=== PATIENT | female | born 1945 | race Caucasian/White ===

== ENCOUNTER 2016-09-29 12:10 | Observation (INO) | payer MEDICARE ==
[2016-09-29] MEDS ORDERED: BABY ASPIRIN 81 MG CHEW PO ONE (12:29)
[2016-09-29] MEDS ORDERED: Nitrostat 0.4 MG (ED) SL ONE ×2 (12:34→12:35)
[2016-09-29] MEDS ORDERED: Sodium Chloride 0.9% 1000 ML 1,000 ML ONE (12:35)
[2016-09-29] MEDS ORDERED: BABY ASPIRIN 81 MG CHEW ONE (12:35)
[2016-09-29] MEDS: Nitrostat 0.4 MG (ED) SL ONE ×2 (12:38→12:54)
[2016-09-29] MEDS: Sodium Chloride 0.9% 1000 ML 1,000 ML IV SCH ×2 (12:39→19:55)
--- NOTE | 2016-09-29 12:41 | ERPHSYRPT ---
- History of Present Illness Time Seen by Provider: 09/29/16 12:15 Historian: patient Exam Limitations: clinical condition Patient Subjective Stated Complaint: states started with CP at 0700 this AM midechest rasiating into back. slight sob and nausea. pain increases with breathing. Triage Nursing Assessment: noted slight sob and anxious. lungs clear bilateral. Physician History: PATIENT WITH A HISTORY OF HYPERTENSION AND CORONARY ARTERY DISEASE COMPLAINS OF SUBSTERNAL CHEST PAINS ONSET 7AM, CHEST TIGHTNESS, PRESSURE, PAIN SCALE 5/10 WITH OCCASIONAL RADIATION TO HER BACK. ADMITS TO NOT TAKING HER HEART OR BLOOD PRESSURE MEDIATIONS TODAY. DENIES DIAPHORESIS OR PALPITATIONS. Timing/Duration: today Activities at Onset: none Quality: pressure, tightness Location: substernal Chest Pain Radiation: back Severity of Pain-Max: moderate Severity of Pain-Current: moderate Modifying Factors: Improves With: nothing Associated Symptoms: shortness of breath Prior Chest Pain/Cardiac Workup: cardiac cath Nitro Today/Relief: 0.4 mg x 3, provided by ED Aspirin Treatment Today: 81 mg x 4, provided by ED Allergies/Adverse Reactions: Penicillins Allergy (Intermediate, Verified 09/29/16 14:23) Rash levofloxacin [From Levaquin] Allergy (Verified 09/29/16 14:23) Home Medications: Metoprolol Succinate 50 mg PO BID 11/19/11 [History] Lorazepam 2 mg PO HS 05/15/12 [History] Lansoprazole 30 mg PO DAILY 06/20/13 [History] Buspirone HCl 5 mg [Buspar 5 mg] 5 mg PO TID 09/29/16 [History] Isosorbide Mononitrate [Isosorbide Mononitrate ER] 30 mg PO DAILY 09/29/16 [ History] Lisinopril 10 mg [Zestril 10 MG] 10 mg PO DAILY 09/29/16 [History] Hx Tetanus, Diphtheria Vaccination/Date Given: No Hx Influenza Vaccination/Date Given: No Hx Pneumococcal Vaccination/Date Given: No - Review of Systems Constitutional: No Fever, No Chills Eyes: No Symptoms Ears, Nose, & Throat: No Symptoms Respiratory: No Symptoms, No Cough, No Dyspnea Cardiac: No Chest Pain, No Edema, No Syncope Abdominal/Gastrointestinal: No Symptoms, No Abdominal Pain, No Nausea, No Vomiting, No Diarrhea Genitourinary Symptoms: No Symptoms, No Dysuria Musculoskeletal: No Symptoms, No Back Pain, No Neck Pain Skin: No Symptoms, No Rash Neurological: No Dizziness, No Focal Weakness, No Sensory Changes Psychological: No Symptoms Endocrine: No Symptoms All Other Systems: Reviewed and Negative - Past Medical History Pertinent Past Medical History: Yes Neurological History: No Pertinent History ENT History: No Pertinent History Cardiac History: High Cholesterol, Hypertension Respiratory History: No Pertinent History Endocrine Medical History: No Pertinent History Musculoskeletal History: No Pertinent History GI Medical History: GERD, Hemorrhoids History: No Pertinent History Psycho-Social History: Anxiety, Panic Disorder Female Reproductive Disorders: No Pertinent History - Past Surgical History Past Surgical History: Yes Neuro Surgical History: No Pertinent History Cardiac: No Pertinent History Respiratory: No Pertinent History Gastrointestinal: No Pertinent History Genitourinary: No Pertinent History Female Surgical History: No Pertinent History Other Surgical History: cyst removed on neck - Social History Smoking Status: Never smoker Exposure to second hand smoke: No Drug Use: none Patient Lives Alone: Yes - Female History Hx Now: No - Nursing Vital Signs Nursing Vital Signs: Initial Vital Signs Temperature 98.6 F 09/29/16 12:12 Pulse Rate 77 09/29/16 12:12 Respiratory Rate 22 09/29/16 12:12 Blood Pressure 198/106 09/29/16 12:12 O2 Sat by Pulse Oximetry 97 09/29/16 12:12 Pain Scale Pain Intensity 0 - Physical Exam General Appearance: no apparent distress, alert Eye Exam: PERRL/EOMI, eyes nml inspection Ears, Nose, Throat Exam: normal ENT inspection, moist mucous membranes Neck Exam: normal inspection, non-tender, supple, full range of motion Respiratory Exam: normal breath sounds, lungs clear, No respiratory distress Cardiovascular Exam: regular rate/rhythm, normal heart sounds, murmur (SYSTOLIC EJECTION MURMUR 4/6) Gastrointestinal/Abdomen Exam: soft, normal bowel sounds (NONTENDER), No tenderness, No mass Back Exam: normal inspection, No CVA tenderness, No vertebral tenderness Extremity Exam: normal inspection, normal range of motion Neurologic Exam: alert, oriented x 3, cooperative, normal mood/affect, sensation nml, No motor deficits Skin Exam: normal color, warm, dry SpO2 Interpretation: normal SpO2: 97 Oxygen Delivery: Room Air - Course EKG Interpreted by Me: RATE, Sinus Rhythm, NORMAL AXIS, Other (THERE IS INFERIO- SEPTA-LATERAL ST SEGMENT DEPRESSION) - Radiology Exams Chest X-ray Interpretation: Interpreted by me, Negative Ordered Tests: Active Orders 24 hr Category Date Time Status Bedrest with BRP/BSC ROUTINE Activity 09/29/16 15:01 Ordered Admission/Status Order ROUTINE Care 09/29/16 15:01 Ordered Call Admit Doctor for Orders ROUTINE Care 09/29/16 15:01 Ordered Career Development Engineer STAT Care 09/29/16 12:30 Active Code Status Order ROUTINE Care 09/29/16 15:01 Ordered EKG-ER Only STAT Care 09/29/16 12:29 Active IV Care Q6H Care 09/29/16 15:01 Ordered IV Insertion STAT Care 09/29/16 12:29 Active Implement Chest Pain Pathway ROUTINE Care 09/29/16 15:01 Ordered Oxygen-ED Only NASAL CANNULA 2 lpm Care 09/29/16 12:29 Active Chang Fuentes, Apply ROUTINE Care 09/29/16 15:01 Ordered Telemetry ROUTINE Care 09/29/16 15:01 Ordered Vital Signs Q4H Care 09/29/16 15:01 Ordered Weight,Daily 0600 Care 09/29/16 15:01 Ordered Cardiac Diet Diet 09/29/16 Dinner Ordered Low Sodium Diet 09/29/16 Dinner Ordered CHEST 1 VIEW (PORTABLE) Stat Exams 09/29/16 12:30 Taken CBC W DIFF Stat Lab 09/29/16 12:20 Completed CMP Stat Lab 09/29/16 12:20 Completed LIPID PROFILE AM.LAB Lab 09/30/16 04:00 Ordered PROTIME WITH INR Stat Lab 09/29/16 12:20 Completed TROPONIN Q3H Lab 09/29/16 13:00 Completed TROPONIN Q3H Lab 09/29/16 15:30 Ordered TROPONIN Q3H Lab 09/29/16 18:30 Ordered TROPONIN Q3H Lab 09/29/16 21:30 Ordered TROPONIN Q3H Lab 09/30/16 00:30 Ordered EKG Q8HX2,QAMX3,PRN RT 09/29/16 15:01 Ordered Pulse Oximetry .continuos RT 09/29/16 15:01 Ordered Transfer Order Routine Transfer 09/29/16 Ordered Medication Summary Generic Name Dose Route Start Last Admin Trade Name Freq PRN Reason Stop Dose Admin Sodium Chloride 1,000 mls @ 100 mls/hr 09/29/16 12:30 09/29/16 12:39 Sodium Chloride 0.9% 1000 Ml IV 10/29/16 12:29 100 mls/hr .Q10H MARY BETH Administration Discontinued Medications Generic Name Dose Route Start Last Admin Trade Name Loyda PRN Reason Stop Dose Admin Aspirin 324 mg 09/29/16 12:29 09/29/16 12:38 Baby Aspirin 81 Mg Chew PO 09/29/16 12:30 324 mg STAT ONE Administration Aspirin Confirm 09/29/16 12:35 Baby Aspirin 81 Mg Chew Administered 09/29/16 12:36 Dose 324 mg .ROUTE .STK-MED ONE Clonidine 0.1 mg 09/29/16 13:53 09/29/16 14:08 Catapres 0.1 Mg PO 09/29/16 13:54 0.1 mg STAT ONE Administration Clonidine Confirm 09/29/16 14:04 Catapres 0.1 Mg Administered 09/29/16 14:05 Dose 0.1 mg .ROUTE .STK-MED ONE Hydralazine HCl 10 mg 09/29/16 13:54 09/29/16 14:07 Apresoline 20 Mg/Ml Inj IV 09/29/16 13:55 10 mg STAT ONE Administration Hydralazine HCl Confirm 09/29/16 14:05 Apresoline 20 Mg/Ml Inj Administered 09/29/16 14:06 Dose 20 mg .ROUTE .STK-MED ONE Lorazepam 1 mg 09/29/16 13:53 09/29/16 14:07 Ativan 2 Mg/1 Ml Vial IV 09/29/16 13:54 1 mg STAT ONE Administration Lorazepam Confirm 09/29/16 14:05 Ativan 2 Mg/1 Ml Vial Administered 09/29/16 14:06 Dose 2 mg .ROUTE .STK-MED ONE Nitroglycerin 0.4 mg 09/29/16 12:29 09/29/16 12:54 Nitrostat 0.4 Mg (Ed) SL 09/29/16 12:30 Not Given STAT ONE Nitroglycerin 0.4 mg 09/29/16 12:34 09/29/16 12:41 Nitrostat 0.4 Mg (Ed) SL 09/29/16 12:35 0.4 mg STAT ONE Administration Nitroglycerin Confirm 09/29/16 12:35 Nitrostat 0.4 Mg (Ed) Administered 09/29/16 12:36 Dose 0.4 mg SL .STK-MED ONE Nitroglycerin 1 gm 09/29/16 12:55 09/29/16 13:08 Nitro-Bid 2% Ud Packets TOP 09/29/16 12:56 1 gm STAT ONE Administration Nitroglycerin Confirm 09/29/16 12:58 Nitro-Bid 2% Ud Packets Administered 09/29/16 12:59 Dose 1 gm .ROUTE .STK-MED ONE Lab/Rad Data: Laboratory Result Diagrams 09/29/16 12:20 09/29/16 12:20 Laboratory Results 09/29/16 09/29/16 09/29/16 Range/Units 13:00 12:20 12:20 WBC (4.0-10.5) K/mm3 RBC (4.1-5.4) M/mm3 Hgb (12.0-16.0) gm/dl Hct (35-47) % MCV (78-100) fl MCH (26-32) pg MCHC (32-36) g/dl RDW (11.5-14.0) % Plt Count (150-450) K/mm3 MPV (6-9.5) fl Gran % (36.0-66.0) % Lymphocytes % (24.0-44.0) % Monocytes % (0.0-12.0) % Eosinophils % (0.00-5.0) % Basophils % (0.0-0.4) % Basophils # (0-0.4) INR 1.04 (0.8-3.0) Sodium 140 (136-145) mEq/L Potassium 3.8 (3.5-5.1) mEq/L Chloride 104 (98-107) mEq/L Carbon Dioxide 23.3 (21-32) mEq/L Anion Gap 16.5 H (5-15) MEQ/L BUN 16 (9-20) mg/dL Creatinine 1.28 (0.55-1.30) mg/dl Estimated GFR 44 ML/MIN Glucose 131 H (70-110) MG/DL Calcium 8.9 (8.5-10.1) mg/dL Total Bilirubin 0.50 (0.2-1.0) mg/dL AST 25 (15-37) U/L ALT 20 (12-78) U/L Alkaline Phosphatase 80 (46-116) U/L Troponin I < 0.017 (0.000-0.056) ng/ml Serum Total Protein 7.8 (6.4-8.2) gm/dL Albumin 3.9 (3.4-5.0) g/dL 09/29/16 Range/Units 12:20 WBC 5.5 (4.0-10.5) K/mm3 RBC 4.17 (4.1-5.4) M/mm3 Hgb 13.1 (12.0-16.0) gm/dl Hct 39.6 (35-47) % MCV 95.0 (78-100) fl MCH 31.4 (26-32) pg MCHC 33.1 (32-36) g/dl RDW 13.2 (11.5-14.0) % Plt Count 232 (150-450) K/mm3 MPV 10.3 H (6-9.5) fl Gran % 35.3 L (36.0-66.0) % Lymphocytes % 50.4 H (24.0-44.0) % Monocytes % 10.8 (0.0-12.0) % Eosinophils % 3.1 (0.00-5.0) % Basophils % 0.4 (0.0-0.4) % Basophils # 0.02 (0-0.4) INR (0.8-3.0) Sodium (136-145) mEq/L Potassium (3.5-5.1) mEq/L Chloride (98-107) mEq/L Carbon Dioxide (21-32) mEq/L Anion Gap (5-15) MEQ/L BUN (9-20) mg/dL Creatinine (0.55-1.30) mg/dl Estimated GFR ML/MIN Glucose (70-110) MG/DL Calcium (8.5-10.1) mg/dL Total Bilirubin (0.2-1.0) mg/dL AST (15-37) U/L ALT (12-78) U/L Alkaline Phosphatase (46-116) U/L Troponin I (0.000-0.056) ng/ml Serum Total Protein (6.4-8.2) gm/dL Albumin (3.4-5.0) g/dL - Progress Progress Note: 09/29/16 12:42 PATIENT GIVEN 4 BABY ASPIRIN, NITRO 0.4MG SL X 1 WITH COMPLETE RELIEF, CATAPRES 0.1MG, HYDRALAZINE 10MG IV FOR HYPERTENSION AND ATIVAN 1 MG FOR ANXIETY 09/29/16 13:[address].: Other (DISCUSSED WITH DR Maria PAINTER AT 1450 FOR ADMISSION) - Departure Time of Disposition: 15:10 Departure Disposition: Observation Clinical Impression: ACUTE CHEST PAIN, HYPERTENSION Condition: Stable Critical Care Time: No Referrals: RIMMA CHA MD [Primary Care Provider] -
[2016-09-29 12:49] LABS: BASOPHIL % 0.4 % (0.0-0.4); Eosinophil % 3.1 % (0.00-5.0); Granulocytes % 35.3 % (36.0-66.0); Lymphocytes % 50.4 % (24.0-44.0); Mean Corpuscular Hemoglobin 31.4 pg (26-32); Mean Platelet Volume 10.3 fl (6-9.5); Monocytes % 10.8 % (0.0-12.0); Platelet Count 232 K/mm3 (150-450); Red Blood Count 4.17 M/mm3 (4.1-5.4); Red Cell Distribution Width 13.2 % (11.5-14.0); White Blood Count 5.5 K/mm3 (4.0-10.5)
[2016-09-29] MEDS ORDERED: NITRO-BID 2% UD PACKETS TOP ONE (12:55)
[2016-09-29] MEDS ORDERED: NITRO-BID 2% UD PACKETS ONE (12:58)
[2016-09-29 13:01] LABS: ALBUMIN 3.9 g/dL (3.4-5.0); ANION GAP 16.5 MEQ/L (5-15); BILIRUBIN,TOTAL 0.5 mg/dL (0.2-1.0); Carbon Dioxide 23.3 mEq/L (21-32); Potassium 3.8 mEq/L (3.5-5.1); Total Protein 7.8 gm/dL (6.4-8.2)
[2016-09-29 13:20] LABS: INR 1.04 (0.8-3.0); PROTIME 11.8 SECONDS (9.95-12.35)
[2016-09-29] MEDS ORDERED: Catapres 0.1 MG PO ONE (13:53)
[2016-09-29] MEDS ORDERED: Ativan 2 MG/1 ML VIAL IV ONE (13:53)
[2016-09-29] MEDS ORDERED: APRESOLINE 20 MG/ML INJ IV ONE (13:54)
[2016-09-29] MEDS ORDERED: Catapres 0.1 MG ONE (14:04)
[2016-09-29] MEDS ORDERED: Ativan 2 MG/1 ML VIAL ONE (14:05)
[2016-09-29] MEDS ORDERED: APRESOLINE 20 MG/ML INJ ONE (14:05)
[2016-09-29] MEDS ORDERED: MILK OF MAGNESIA 30 ML PO PRN (15:01)
[2016-09-29] MEDS ORDERED: Senokot-S Tablet PO PRN (15:01)
[2016-09-29] MEDS ORDERED: Nitrostat 0.4 MG Tablet SL PRN (15:01)
[2016-09-29] MEDS ORDERED: MORPHINE SULFATE 2 MG INJ IV PRN (15:01)
[2016-09-29] MEDS ORDERED: TYLENOL 325 MG PO PRN (15:01)
[2016-09-29] MEDS ORDERED: Zofran 4 MG/2 ML VIAL IV PRN (15:01)
[2016-09-29] MEDS ORDERED: MAALOX ES 30 ML UNIT DOSE PO PRN (15:01)
[2016-09-29] MEDS ORDERED: Zestril 10 MG PO STA (15:07)
[2016-09-29] MEDS ORDERED: Sodium Chloride 0.9% 500 ML 500 ML IV SCH (15:15)
[2016-09-29] MEDS: Imdur 30 MG PO SCH (16:57)
--- NOTE | 2016-09-29 18:51 | XRAY ---
Indication: Chest pain. Comparison: October 20, 2015. Portable chest today demonstrates normal heart and lungs with stable hiatal hernia. Bony thorax intact. No new/acute findings.
[2016-09-29] MEDS: NITRO-BID 2% UD PACKETS TOP SCH (22:03)
[2016-09-29] MEDS: Ativan 1 MG PO PRN (23:19)
[2016-09-30] MEDS: Sodium Chloride 0.9% 1000 ML 1,000 ML IV SCH (05:39)
[2016-09-30] MEDS: NITRO-BID 2% UD PACKETS TOP SCH ×2 (05:39→13:49)
[2016-09-30 07:58] VITALS: O2SAT 92
[2016-09-30] MEDS: Ativan 1 MG PO PRN (08:23)
[2016-09-30] MEDS ORDERED: Toprol Xl 50 MG PO SCH (10:00)
[2016-09-30] MEDS ORDERED: Ecotrin 325 MG PO SCH (10:00)
[2016-09-30] MEDS: Imdur 30 MG PO SCH (10:38)
--- NOTE | 2016-09-30 12:52 | PCM.SSS ---
History of Present Illness - Chief Complaint Chief Complaint: chest pain for 1 day History of Present Illness: is a 71 year old female.states started with CP at 0700 this AM midechest rasiating into back. slight sob and nausea. pain increases with breathing - Review of Systems Constitutional: No Fever, No Chills Eyes: No Symptoms Ears, Nose, & Throat: No Symptoms Respiratory: No Cough, No Short Of Breath Cardiac: No Chest Pain, No Edema, No Syncope Abdominal/Gastrointestinal: No Abdominal Pain, No Nausea, No Vomiting, No Diarrhea Genitourinary Symptoms: No Dysuria Musculoskeletal: No Back Pain, No Neck Pain Skin: No Rash Neurological: No Dizziness, No Focal Weakness, No Sensory Changes Psychological: No Symptoms Endocrine: No Symptoms Hematologic/Lymphatic: No Symptoms Immunological/Allergic: No Symptoms Medications & Allergies Home Medications: Home Medication List Acetaminophen 325 mg [Tylenol 325 mg] 650 mg PO Q4H PRN PRN tablet [Rx] Aspirin EC 325 mg [Ecotrin 325 MG] 325 mg PO DAILY tablet.ec 09/30/16 [Rx ] Isosorbide Mononitrate 30 mg [Imdur 30 MG] 30 mg PO DAILY #30 tab 09/30/16 [Rx] Isosorbide Mononitrate [Isosorbide Mononitrate ER] 30 mg PO HS #30 tab.er.24h [Rx] Lansoprazole 30 mg PO DAILY #30 capsule.dr 09/30/16 [Rx] Lisinopril 10 mg [Zestril 10 MG] 10 mg PO DAILY #30 tablet 09/30/16 [Rx] Lorazepam 2 mg PO BID #60 tablet 09/30/16 [Rx] Metoprolol Succinate 50 mg PO DAILY #30 tab.er.24h 09/30/16 [Rx] Metoprolol Succinate 50 mg [Toprol Xl 50 MG] 50 mg PO DAILY #30 tablet.sa 09/30/16 [Rx] Nitroglycerin 0.4 mg Tablet [Nitrostat 0.4 MG Tablet] 0.4 mg SL .Q5MIN PRN #30 bottle 09/30/16 [Rx] Paroxetine HCl ER 12.5 mg [Paxil 12.5MG CR] 12.5 mg PO QHS #30 tab [Rx] Allergies/Adverse Reactions: Allergies Allergy/AdvReac Type Severity Reaction Status Date / Time Penicillins Allergy Intermediate Rash Verified 09/29/16 14:23 levofloxacin [From Levaquin] Allergy Verified 09/29/16 14:23 - Past Medical History Past Medical History: Yes Neurological History: No Pertinent History ENT History: No Pertinent History Cardiac History: High Cholesterol, Hypertension Respiratory History: No Pertinent History Endocrine Medical History: No Pertinent History Musculoskelatal History: No Pertinent History GI Medical History: GERD, Hemorrhoids History: No Pertinent History Pyscho-Social History: Anxiety, Panic Disorder Reproductive Disorders: No Pertinent History - Female History Are you now?: No - Past Surgical History Past Surgical History: Yes Neuro Surgical History: No Pertinent History Cardiac History: No Pertinent History Respiratory Surgery: No Pertinent History GI Surgical History: No Pertinent History Genitourinary Surgical Hx: No Pertinent History Musculskeletal Surgical Hx: No Pertinent History Female Surgical History: No Pertinent History Other Surgical History: cyst removed on neck - Social History Smoking Status: Never smoker Exposure to second hand smoke: No Alcohol: None Drug Use: none - Physical Exam Vital Signs: Vital Signs - 24 hr Temp Pulse Resp BP Pulse Ox 09/30/16 07:57 98.2 F 72 18 134/66 92 L 09/30/16 07:26 94 L 09/30/16 04:15 97.8 F 67 20 130/66 97 09/29/16 23:43 97.7 F 80 18 127/68 99 09/29/16 21:27 70 20 99 09/29/16 15:55 98 F 71 20 173/80 99 09/29/16 15:08 97 09/29/16 15:01 98 F 71 20 173/80 99 09/29/16 14:50 94 H 22 184/94 09/29/16 14:15 75 16 172/98 98 09/29/16 13:10 73 20 167/88 09/29/16 13:09 68 18 167/88 97 09/29/16 12:50 88 22 174/84 99 09/29/16 12:45 20 207/89 98 Oxygen-Last 24 hours O2 Percentage 2 Liters = 28% O2 Percentage 2 Liters = 28% O2 Percentage 2 Liters = 28% O2 Percentage 2 Liters = 28% O2 Percentage 2 Liters = 28% O2 Percentage 2 Liters = 28% O2 Percentage 2 Liters = 28% General Appearance: no apparent distress, alert Neurologic Exam: alert, oriented x 3, cooperative, normal mood/affect, nml cerebellar function, nml station & gait, sensation nml, No motor deficits Eye Exam: PERRL/EOMI, eyes nml inspection Ears, Nose, Throat Exam: normal ENT inspection, TMs normal, pharynx normal, moist mucous membranes Neck Exam: normal inspection, non-tender, supple, full range of motion Respiratory Exam: normal breath sounds, lungs clear, No respiratory distress Cardiovascular Exam: regular rate/rhythm, normal heart sounds, normal peripheral pulses Gastrointestinal/Abdomen Exam: soft, normal bowel sounds, No tenderness, No mass Back Exam: normal inspection, normal range of motion, No CVA tenderness, No vertebral tenderness Extremity Exam: normal inspection, normal range of motion, pelvis stable Skin Exam: normal color, warm, dry, No rash Lymphatic Exam: No adenopathy Results - Labs Lab/Micro Results: Lab Results-Last 24 Hours 09/29/16 09/29/16 09/29/16 Range/Units 15:50 18:32 21:30 Troponin I < 0.017 < 0.017 < 0.017 (0.000-0.056) ng/ml Triglycerides (30-200) mg/dL Cholesterol (100-200) mg/dL LDL Cholesterol (5-99) mg/dL HDL Cholesterol (35-60) mg/dL Heart Disease Risk Ratio 09/30/16 09/30/16 Range/Units 00:47 04:56 Troponin I < 0.017 (0.000-0.056) ng/ml Triglycerides 189 (30-200) mg/dL Cholesterol 218 H (100-200) mg/dL LDL Cholesterol 141 H (5-99) mg/dL HDL Cholesterol 32 L (35-60) mg/dL Heart Disease Risk Ratio 6.8 - Other Procedures and Tests Respiratory Therapy 09/29/16 21:27 Oxygen NASAL CANNULA 2 lpm 10/01/16 05:00 EKG ONCE 10/02/16 05:00 EKG ONCE Assessment/Plan (1) Chest discomfort Current Visit: Yes Status: Resolved Assessment & Plan: Patient has been ruled out for CT, no chest pain Chief Complaint Diagnosis chest pain Allergies Allergy/AdvReac Type Severity Reaction Status Date / Time Penicillins Allergy Intermediate Rash Verified 09/29/16 14:23 levofloxacin [From Levaquin] Allergy Verified 09/29/16 14:23 Vital Signs (Last 24 hours) Temp Pulse Resp BP Pulse Ox 09/30/16 07:57 98.2 F 72 18 134/66 92 L 09/30/16 07:26 94 L 09/30/16 04:15 97.8 F 67 20 130/66 97 09/29/16 23:43 97.7 F 80 18 127/68 99 09/29/16 21:27 70 20 99 09/29/16 15:55 98 F 71 20 173/80 99 09/29/16 15:08 97 09/29/16 15:01 98 F 71 20 173/80 99 09/29/16 14:50 94 H 22 184/94 09/29/16 14:15 75 16 172/98 98 09/29/16 13:10 73 20 167/88 09/29/16 13:09 68 18 167/88 97 09/29/16 12:50 88 22 174/84 99 09/29/16 12:45 20 207/89 98 Home Medications Medication Instructions Recorded Confirmed Last Taken Type Buspirone HCl 5 mg [Buspar 5 5 mg PO TID 09/29/16 09/29/16 09/29/16 History mg] Isosorbide Mononitrate [Isosorbide 30 mg PO HS 09/29/16 09/29/16 09/28/16 21:00 History Mononitrate ER] Lisinopril 10 mg [Zestril 10 10 mg PO DAILY 09/29/16 09/29/16 09/28/16 08:00 History MG] Current Medications Generic Name Dose Route Start Last Admin Trade Name Freq PRN Reason Stop Dose Admin Acetaminophen 650 mg 09/29/16 15:01 09/30/16 05:38 Tylenol 325 Mg PO 10/29/16 15:00 650 mg Q4H PRN PRN Administration PAIN AND/OR FEVER Al Hydrox/Mg Hydrox/Simethicone 30 ml 09/29/16 15:01 Maalox Es 30 Ml Unit Dose PO 10/29/16 15:00 Q4H PRN PRN INDIGESTION Aspirin 325 mg 09/30/16 10:00 09/30/16 10:39 Ecotrin 325 Mg PO 10/30/16 09:59 325 mg DAILY MARY BETH Administration Sodium Chloride 1,000 mls @ 100 mls/hr 09/29/16 12:30 09/30/16 05:39 Sodium Chloride 0.9% 1000 Ml IV 10/29/16 12:29 100 mls/hr .Q10H MARY BETH Administration Isosorbide Mononitrate 30 mg 09/29/16 15:15 09/30/16 10:38 Imdur 30 Mg PO 10/29/16 15:14 30 mg DAILY MARY BETH Administration Lorazepam 1 mg 09/29/16 15:05 09/30/16 08:23 Ativan 1 Mg PO 10/29/16 15:04 1 mg TID PRN PRN Administration ANXIETY Magnesium Hydroxide 30 - 60 ml 09/29/16 15:01 Milk Of Magnesia 30 Ml PO 10/29/16 15:00 QDP PRN CONSTIPATION Metoprolol Succinate 50 mg 09/30/16 10:00 09/30/16 10:38 Toprol Xl 50 Mg PO 10/30/16 09:59 50 mg DAILY MARY BETH Administration Morphine Sulfate 2 mg 09/29/16 15:01 Morphine Sulfate 2 Mg Inj IV 10/04/16 15:00 .Q15MIN PRN PRN CHEST PAIN Nitroglycerin 0.4 mg 09/29/16 15:01 Nitrostat 0.4 Mg Tablet SL 10/29/16 15:00 .Q5MIN PRN CHEST PAIN Nitroglycerin 1 gm 09/29/16 22:00 09/30/16 05:39 Nitro-Bid 2% Ud Packets TOP 10/29/16 21:59 1 gm Q8HT MARY BETH Administration Ondansetron HCl 4 mg 09/29/16 15:01 Zofran 4 Mg/2 Ml Vial IV 10/29/16 15:00 Q4H PRN PRN NAUSEA/VOMITING Senna/Docusate Sodium 2 udtab 09/29/16 15:01 Senokot-S Tablet PO 10/29/16 15:00 BID PRN PRN CONSTIPATION Discontinued Medications Generic Name Dose Route Start Last Admin Trade Name Loyda PRN Reason Stop Dose Admin Aspirin 324 mg 09/29/16 12:29 09/29/16 12:38 Baby Aspirin 81 Mg Chew PO 09/29/16 12:30 324 mg STAT ONE Administration Aspirin Confirm 09/29/16 12:35 Baby Aspirin 81 Mg Chew Administered 09/29/16 12:36 Dose 324 mg .ROUTE .STK-MED ONE Clonidine 0.1 mg 09/29/16 13:53 09/29/16 14:08 Catapres 0.1 Mg PO 09/29/16 13:54 0.1 mg STAT ONE Administration Clonidine Confirm 09/29/16 14:04 Catapres 0.1 Mg Administered 09/29/16 14:05 Dose 0.1 mg .ROUTE .STK-MED ONE Hydralazine HCl 10 mg 09/29/16 13:54 09/29/16 14:07 Apresoline 20 Mg/Ml Inj IV 09/29/16 13:55 10 mg STAT ONE Administration Hydralazine HCl Confirm 09/29/16 14:05 Apresoline 20 Mg/Ml Inj Administered 09/29/16 14:06 Dose 20 mg .ROUTE .STK-MED ONE Sodium Chloride Confirm 09/29/16 12:35 Sodium Chloride 0.9% 1000 Ml Administered 09/29/16 12:36 Dose 1,000 mls @ ud .ROUTE .STK-MED ONE Lisinopril 10 mg 09/29/16 15:07 09/29/16 15:53 Zestril 10 Mg PO 09/29/16 15:08 10 mg STAT STA Administration Lorazepam 1 mg 09/29/16 13:53 09/29/16 14:07 Ativan 2 Mg/1 Ml Vial IV 09/29/16 13:54 1 mg STAT ONE Administration Lorazepam Confirm 09/29/16 14:05 Ativan 2 Mg/1 Ml Vial Administered 09/29/16 14:06 Dose 2 mg .ROUTE .STK-MED ONE Nitroglycerin 0.4 mg 09/29/16 12:29 09/29/16 12:54 Nitrostat 0.4 Mg (Ed) SL 09/29/16 12:30 Not Given STAT ONE Nitroglycerin 0.4 mg 09/29/16 12:34 09/29/16 12:41 Nitrostat 0.4 Mg (Ed) SL 09/29/16 12:35 0.4 mg STAT ONE Administration Nitroglycerin Confirm 09/29/16 12:35 Nitrostat 0.4 Mg (Ed) Administered 09/29/16 12:36 Dose 0.4 mg SL .STK-MED ONE Nitroglycerin 1 gm 09/29/16 12:55 09/29/16 13:08 Nitro-Bid 2% Ud Packets TOP 09/29/16 12:56 1 gm STAT ONE Administration Nitroglycerin Confirm 09/29/16 12:58 Nitro-Bid 2% Ud Packets Administered 09/29/16 12:59 Dose 1 gm .ROUTE .STK-MED ONE Intake & Output (Last 24 hours) 09/28/16 09/29/16 09/30/16 10/01/16 11:59 11:59 11:59 11:59 Intake Total 1998 Output Total 200 Balance 1798 Weight 76.204 kg Laboratory Results (Last 24 hours) 09/30/16 09/30/16 09/29/16 04:56 00:47 21:30 WBC RBC Hgb Hct MCV MCH MCHC RDW Plt Count MPV Gran % Lymphocytes % Monocytes % Eosinophils % Basophils % Basophils # INR Sodium Potassium Chloride Carbon Dioxide Anion Gap BUN Creatinine Estimated GFR Glucose Calcium Total Bilirubin AST ALT Alkaline Phosphatase Troponin I < 0.017 < 0.017 Serum Total Protein Albumin Triglycerides 189 Cholesterol 218 H LDL Cholesterol 141 H HDL Cholesterol 32 L Heart Disease Risk Ratio 6.8 09/29/16 09/29/16 09/29/16 18:32 15:50 13:00 WBC RBC Hgb Hct MCV MCH MCHC RDW Plt Count MPV Gran % Lymphocytes % Monocytes % Eosinophils % Basophils % Basophils # INR Sodium Potassium Chloride Carbon Dioxide Anion Gap BUN Creatinine Estimated GFR Glucose Calcium Total Bilirubin AST ALT Alkaline Phosphatase Troponin I < 0.017 < 0.017 < 0.017 Serum Total Protein Albumin Triglycerides Cholesterol LDL Cholesterol HDL Cholesterol Heart Disease Risk Ratio 09/29/16 09/29/16 09/29/16 12:20 12:20 12:20 WBC 5.5 RBC 4.17 Hgb 13.1 Hct 39.6 MCV 95.0 MCH 31.4 MCHC 33.1 RDW 13.2 Plt Count 232 MPV 10.3 H Gran % 35.3 L Lymphocytes % 50.4 H Monocytes % 10.8 Eosinophils % 3.1 Basophils % 0.4 Basophils # 0.02 INR 1.04 Sodium 140 Potassium 3.8 Chloride 104 Carbon Dioxide 23.3 Anion Gap 16.5 H BUN 16 Creatinine 1.28 Estimated GFR 44 Glucose 131 H Calcium 8.9 Total Bilirubin 0.50 AST 25 ALT 20 Alkaline Phosphatase 80 Troponin I Serum Total Protein 7.8 Albumin 3.9 Triglycerides Cholesterol LDL Cholesterol HDL Cholesterol Heart Disease Risk Ratio Orders (Last 24 hours) Category Date Time Status Bedrest with BRP/BSC ROUTINE Activity 09/29/16 15:01 Active Admission/Status Order ROUTINE Care 09/29/16 15:01 Active Call Admit Doctor for Orders ROUTINE Care 09/29/16 15:01 Active Furniture Fabricator STAT Care 09/29/16 12:30 Completed Code Status Order ROUTINE Care 09/29/16 15:01 Active EKG-ER Only STAT Care 09/29/16 12:29 Completed IV Care Q6H Care 09/29/16 15:01 Active IV Insertion STAT Care 09/29/16 12:29 Completed Implement Chest Pain Pathway ROUTINE Care 09/29/16 15:01 Active Oxygen-ED Only NASAL CANNULA 2 lpm Care 09/29/16 12:29 Active Chang Fuentes, Apply ROUTINE Care 09/29/16 15:01 Active Telemetry ROUTINE Care 09/29/16 15:01 Active Vital Signs Q4H Care 09/29/16 15:01 Completed Weight,Daily 0600 Care 09/29/16 15:01 Active Publication Designer/Discharge Plan Cons 09/29/16 16:28 Active Cardiac Diet Diet 09/29/16 Dinner Active Low Sodium Diet 09/29/16 Dinner Active CHEST 1 VIEW (PORTABLE) Stat Exams 09/29/16 12:30 Completed CBC W DIFF Stat Lab 09/29/16 12:20 Completed CMP Stat Lab 09/29/16 12:20 Completed LIPID PROFILE AM.LAB Lab 09/30/16 04:56 Completed PROTIME WITH INR Stat Lab 09/29/16 12:20 Completed TROPONIN Q3H Lab 09/29/16 13:00 Completed TROPONIN Q3H Lab 09/29/16 15:50 Completed TROPONIN Q3H Lab 09/29/16 18:32 Completed TROPONIN Q3H Lab 09/29/16 21:30 Completed TROPONIN Q3H Lab 09/30/16 00:47 Completed Acetaminophen 325 mg [Tylenol 325 mg] Med 09/29/16 15:01 Active 650 mg PO Q4H PRN PRN Aspirin 81 gm Chew [Baby Aspirin 81 mg Chew] Med 09/29/16 12:35 Discontinued 324 mg .ROUTE .STK-MED ONE Aspirin 81 gm Chew [Baby Aspirin 81 mg Chew] Med 09/29/16 12:29 Discontinued 324 mg PO STAT ONE Aspirin EC 325 mg [Ecotrin 325 MG] Med 09/30/16 10:00 Active 325 mg PO DAILY Clonidine HCl 0.1 mg [Catapres 0.1 MG] Med 09/29/16 14:04 Discontinued 0.1 mg .ROUTE .STK-MED ONE Clonidine HCl 0.1 mg [Catapres 0.1 MG] Med 09/29/16 13:53 Discontinued 0.1 mg PO STAT ONE HydrALAzine HCL 20 MG INJ [Apresoline 20 mg/ml Inj Med 09/29/16 13:54 Discontinued *] 10 mg IV STAT ONE HydrALAzine HCL 20 MG INJ [Apresoline 20 mg/ml Inj Med 09/29/16 14:05 Discontinued *] 20 mg .ROUTE .STK-MED ONE Isosorbide Mononitrate 30 mg [Imdur 30 MG] Med 09/29/16 15:15 Active 30 mg PO DAILY Lisinopril 10 mg [Zestril 10 MG] Med 09/29/16 15:07 Discontinued 10 mg PO STAT STA Lorazepam 1 mg [Ativan 1 MG] Med 09/29/16 15:05 Active 1 mg PO TID PRN PRN Lorazepam 2 mg/1 ml [Ativan 2 MG/1 ML VIAL] Med 09/29/16 13:53 Discontinued 1 mg IV STAT ONE Lorazepam 2 mg/1 ml [Ativan 2 MG/1 ML VIAL] Med 09/29/16 14:05 Discontinued 2 mg .ROUTE .STK-MED ONE Mag Hydrox/Al Hydrox/Simeth [Maalox Es 30 ml Unit Med 09/29/16 15:01 Active Dose] 30 ml PO Q4H PRN PRN Magnesium Hydroxide 30 ml [Milk of Magnesia 30 ml Med 09/29/16 15:01 Active ] 30 - 60 ml PO QDP PRN Metoprolol Succinate 50 mg [Toprol Xl 50 MG] Med 09/30/16 10:00 Active 50 mg PO DAILY Morphine Sulfate 2 mg Inj Med 09/29/16 15:01 Active 2 mg IV .Q15MIN PRN PRN NaCl 0.9% 1000 ml [Sodium Chloride 0.9% 1000 ML] 1,000 Med 09/29/16 12:35 Discontinued ml .ROUTE UD NaCl 0.9% 1000 ml [Sodium Chloride 0.9% 1000 ML] 1,000 Med 09/29/16 12:30 Active ml IV 100 mls/hr Nitroglycerin 0.4 mg (Ed) [Nitrostat 0.4 MG (ED)] Med 09/29/16 12:35 Discontinued 0.4 mg SL .STK-MED ONE Nitroglycerin 0.4 mg (Ed) [Nitrostat 0.4 MG (ED)] Med 09/29/16 12:29 Discontinued 0.4 mg SL STAT ONE Nitroglycerin 0.4 mg (Ed) [Nitrostat 0.4 MG (ED)] Med 09/29/16 12:34 Discontinued 0.4 mg SL STAT ONE Nitroglycerin 0.4 mg Tablet [Nitrostat 0.4 MG Tablet Med 09/29/16 15:01 Active ] 0.4 mg SL .Q5MIN PRN Nitroglycerin 2 %Ointment [Nitro-Bid 2% Ud Packets Med 09/29/16 12:58 Discontinued *] 1 gm .ROUTE .STK-MED ONE Nitroglycerin 2 %Ointment [Nitro-Bid 2% Ud Packets Med 09/29/16 22:00 Active *] 1 gm TOP Q8HT Nitroglycerin 2 %Ointment [Nitro-Bid 2% Ud Packets Med 09/29/16 12:55 Discontinued *] 1 gm TOP STAT ONE Ondansetron HCl 4 mg/2 ml [Zofran 4 MG/2 ML VIAL] Med 09/29/16 15:01 Active 4 mg IV Q4H PRN PRN Senna/Docusate Sodium Tab [Senokot-S Tablet] Med 09/29/16 15:01 Active 2 udtab PO BID PRN PRN EKG ONCE RT 09/29/16 20:15 Completed EKG ONCE RT 09/30/16 05:00 Completed EKG ONCE RT 10/01/16 05:00 Active EKG ONCE RT 10/02/16 05:00 Active Oxygen NASAL CANNULA 2 lpm RT 09/29/16 21:27 Active Code(s): R07.89 - OTHER CHEST PAIN (2) HTN (hypertension) Current Visit: Yes Status: Acute Qualifiers: Hypertension type: essential hypertension Qualified Code(s): I10 - Essential (primary) hypertension Code(s): I10 - ESSENTIAL (PRIMARY) HYPERTENSION (3) Hyperlipemia, mixed Current Visit: Yes Status: Acute Code(s): E78.2 - MIXED HYPERLIPIDEMIA Hospital Summary - Hospital Course Hospital Course: Last Vital Signs Temp 98.2 F 09/30/16 07:57 Pulse 72 09/30/16 07:57 Resp 18 09/30/16 07:57 BP 134/66 09/30/16 07:57 Pulse Ox 92 L 09/30/16 07:57 Allergies Penicillins Allergy (Intermediate, Verified 09/29/16 14:23) Rash levofloxacin [From Levaquin] Allergy (Verified 09/29/16 14:23) Active Medications Acetaminophen (Tylenol 325 Mg) 650 mg PO Q4H PRN PRN PRN Reason: PAIN AND/OR FEVER Stop: 10/29/16 15:00 Last Admin: 09/30/16 05:38 Dose: 650 mg Al Hydrox/Mg Hydrox/Simethicone (Maalox Es 30 Ml Unit Dose) 30 ml PO Q4H PRN PRN PRN Reason: INDIGESTION Stop: 10/29/16 15:00 Aspirin (Ecotrin 325 Mg) 325 mg PO DAILY [facility] Stop: 10/30/16 09:59 Last Admin: 09/30/16 10:39 Dose: 325 mg Sodium Chloride (Sodium Chloride 0.9% 1000 Ml) 1,000 mls @ 100 mls/hr IV .Q10H [facility] Stop: 10/29/16 12:29 Last Admin: 09/30/16 05:39 Dose: 100 mls/hr Isosorbide Mononitrate (Imdur 30 Mg) 30 mg PO DAILY [facility] Stop: 10/29/16 15:14 Last Admin: 09/30/16 10:38 Dose: 30 mg Lorazepam (Ativan 1 Mg) 1 mg PO TID PRN PRN PRN Reason: ANXIETY Stop: 10/29/16 15:04 Last Admin: 09/30/16 08:23 Dose: 1 mg Magnesium Hydroxide (Milk Of Magnesia 30 Ml) 30 - 60 ml PO QDP PRN PRN Reason: CONSTIPATION Stop: 10/29/16 15:00 Metoprolol Succinate (Toprol Xl 50 Mg) 50 mg PO DAILY [facility] Stop: 10/30/16 09:59 Last Admin: 09/30/16 10:38 Dose: 50 mg Morphine Sulfate (Morphine Sulfate 2 Mg Inj) 2 mg IV .Q15MIN PRN PRN PRN Reason: CHEST PAIN Stop: 10/04/16 15:00 Nitroglycerin (Nitrostat 0.4 Mg Tablet) 0.4 mg SL .Q5MIN PRN PRN Reason: CHEST PAIN Stop: 10/29/16 15:00 Nitroglycerin (Nitro-Bid 2% Ud Packets) 1 gm TOP Q8HT [facility] Stop: 10/29/16 21:59 Last Admin: 09/30/16 05:39 Dose: 1 gm Ondansetron HCl (Zofran 4 Mg/2 Ml Vial) 4 mg IV Q4H PRN PRN PRN Reason: NAUSEA/VOMITING Stop: 10/29/16 15:00 Senna/Docusate Sodium (Senokot-S Tablet) 2 udtab PO BID PRN PRN PRN Reason: CONSTIPATION Stop: 10/29/16 15:00 Intake & Output 09/30/16 10/01/16 11:59 11:59 Intake Total 1998 Output Total 200 Balance 1798 Weight 76.204 kg Orders 09/29/16 16:28 Publication Designer/Discharge Plan 09/29/16 21:27 Oxygen NASAL CANNULA 2 lpm Lab Tests 09/29/16 09/29/16 09/29/16 12:20 12:20 12:20 WBC 5.5 RBC 4.17 Hgb 13.1 Hct 39.6 MCV 95.0 MCH 31.4 MCHC 33.1 RDW 13.2 Plt Count 232 MPV 10.3 H Gran % 35.3 L Lymphocytes % 50.4 H Monocytes % 10.8 Eosinophils % 3.1 Basophils % 0.4 Basophils # 0.02 INR 1.04 Sodium 140 Potassium 3.8 Chloride 104 Carbon Dioxide 23.3 Anion Gap 16.5 H BUN 16 Creatinine 1.28 Estimated GFR 44 Glucose 131 H Calcium 8.9 Total Bilirubin 0.50 AST 25 ALT 20 Alkaline Phosphatase 80 Troponin I Serum Total Protein 7.8 Albumin 3.9 Triglycerides Cholesterol LDL Cholesterol HDL Cholesterol Heart Disease Risk Ratio 09/29/16 09/29/16 09/29/16 13:00 15:50 18:32 WBC RBC Hgb Hct MCV MCH MCHC RDW Plt Count MPV Gran % Lymphocytes % Monocytes % Eosinophils % Basophils % Basophils # INR Sodium Potassium Chloride Carbon Dioxide Anion Gap BUN Creatinine Estimated GFR Glucose Calcium Total Bilirubin AST ALT Alkaline Phosphatase Troponin I < 0.017 < 0.017 < 0.017 Serum Total Protein Albumin Triglycerides Cholesterol LDL Cholesterol HDL Cholesterol Heart Disease Risk Ratio 09/29/16 09/30/16 09/30/16 21:30 00:47 04:56 WBC RBC Hgb Hct MCV MCH MCHC RDW Plt Count MPV Gran % Lymphocytes % Monocytes % Eosinophils % Basophils % Basophils # INR Sodium Potassium Chloride Carbon Dioxide Anion Gap BUN Creatinine Estimated GFR Glucose Calcium Total Bilirubin AST ALT Alkaline Phosphatase Troponin I < 0.017 < 0.017 Serum Total Protein Albumin Triglycerides 189 Cholesterol 218 H LDL Cholesterol 141 H HDL Cholesterol 32 L Heart Disease Risk Ratio 6.8 - Vitals & Intake/Output Vital Signs: Vital Signs Temperature 98.2 F 09/30/16 07:57 Pulse Rate 72 09/30/16 07:57 Respiratory Rate 18 09/30/16 07:57 Blood Pressure 134/66 09/30/16 07:57 O2 Sat by Pulse Oximetry 92 L 09/30/16 07:57 Oxygen-Last Documented O2 Percentage 2 Liters = 28% Intake & Output: Intake & Output 09/28/16 09/29/16 09/30/16 10/01/16 11:59 11:59 11:59 11:59 Intake Total 1997 Output Total 200 Balance 1798 Weight 76.204 kg - Lab Result Diagrams: 09/29/16 12:20 09/29/16 12:20 Lab Results-Last 24 Hrs: Lab Results-Last 24 Hours 09/29/16 09/29/16 09/29/16 Range/Units 15:50 18:32 21:30 Troponin I < 0.017 < 0.017 < 0.017 (0.000-0.056) ng/ml Triglycerides (30-200) mg/dL Cholesterol (100-200) mg/dL LDL Cholesterol (5-99) mg/dL HDL Cholesterol (35-60) mg/dL Heart Disease Risk Ratio 09/30/16 09/30/16 Range/Units 00:47 04:56 Troponin I < 0.017 (0.000-0.056) ng/ml Triglycerides 189 (30-200) mg/dL Cholesterol 218 H (100-200) mg/dL LDL Cholesterol 141 H (5-99) mg/dL HDL Cholesterol 32 L (35-60) mg/dL Heart Disease Risk Ratio 6.8 - Procedures and Test Procedures and Tests throughout Hospitalization: Therapy Orders & Screens 09/29/16 20:15 EKG ONCE Comment: Diagnosis: chest pain 09/29/16 21:27 Oxygen NASAL CANNULA 2 lpm Comment: Diagnosis: chest pain 09/30/16 05:00 EKG ONCE Comment: 10/01/16 05:00 EKG ONCE Comment: 10/02/16 05:00 EKG ONCE Comment: - Discharge Discharge Date: 09/30/16 Disposition: Home, Self-Care Condition: Stable Prescriptions: New Aspirin EC 325 mg [Ecotrin 325 MG] 325 mg PO DAILY tablet.ec Isosorbide Mononitrate 30 mg [Imdur 30 MG] 30 mg PO DAILY #30 tab Nitroglycerin 0.4 mg Tablet [Nitrostat 0.4 MG Tablet] 0.4 mg SL .Q5MIN PRN #30 bottle PRN Reason: Chest Pain Paroxetine HCl ER 12.5 mg [Paxil 12.5MG CR] 12.5 mg PO QHS #30 tab Metoprolol Succinate 50 mg [Toprol Xl 50 MG] 50 mg PO DAILY #30 tablet.sa Acetaminophen 325 mg [Tylenol 325 mg] 650 mg PO Q4H PRN PRN tablet PRN Reason: Pain And/Or Fever Continue Isosorbide Mononitrate [Isosorbide Mononitrate ER] 30 mg PO HS #30 tab.er.24h Lansoprazole 30 mg PO DAILY #30 capsule. Metoprolol Succinate 50 mg PO DAILY #30 tab.er.24h Lisinopril 10 mg [Zestril 10 MG] 10 mg PO DAILY #30 tablet Changed Lorazepam 2 mg PO BID #60 tablet Discontinued Buspirone HCl 5 mg [Buspar 5 mg] 5 mg PO TID Follow up with: RIMMA CHA MD [Primary Care Provider] -
[2016-09-30 13:17] VITALS: BP 179/84; PULSE 73
== END 2016-09-30 15:36 | disposition home or self-care (01) ==
LOC: ED 12:10 → MED SURG 15:19
PROVIDERS: ADMIT Internal Medicine; ATTEND General Practice
DX: R07.89 Other chest pain (principal); I10 Essential (primary) hypertension; E78.2 Mixed hyperlipidemia; Z79.899 Other long term (current) drug therapy; K21.9 Gastro-esophageal reflux disease without esophagitis; F41.9 Anxiety disorder, unspecified
CPT/HCPCS: 36000; 36415; 71010; 80053; 80061; 83721; 84484; 85025; 85610; 93005; 93041; 93268; 94760; 96360; 96361; 96374; 96375; 99285; G0378; J0360; J2060; A9270-GY

== ENCOUNTER 2018-05-30 19:55 | Emergency (ER) | payer MEDICARE ==
[2018-05-30] MEDS ORDERED: Sodium Chloride 0.9% 1000 ML 1,000 ML IV STA (20:14)
[2018-05-30] MEDS ORDERED: Zofran 4 MG/2 ML VIAL IV ONE ×2 (20:14→23:35)
--- NOTE | 2018-05-30 20:14 | ERPHSYRPT ---
- History of Present Illness Time Seen by Provider: 05/30/18 20:13 Historian: patient, family Patient Subjective Stated Complaint: pt is alert and oriented. pt is ambulatory with a steady gait. pt comes in with c/o abd pain, n/v/d, and fever. pt states she's vomited 3x the last 24 hrs and had more than 10 diarrhea stools. pt skin is pale and dry. pt bowel sounds normoactive x4. pt states her abdomenal pain is in the center of her abdomen. pt heart sounds regular. Triage Nursing Assessment: see above Physician History: 73 y/o white female presents with first diarrhea this am at 0300. she then has several bouts of this throughout the day followed by n/v and crampy abd pain. no prior abd surgeries. never had this before. no headache, no sore throat, no earaches. no other individuals in family with similar sx. no travel outside us and no camping. no antibx and no new meds. Timing/Duration: yesterday Abdominal Pain Onset Location: generalized abdomen Severity of Pain-Max: mild Severity of Pain-Current: mild Modifying Factors: Improves With: vomiting Associated Symptoms: diarrhea, fever/chills, loss of appetite, nausea, vomiting Previous symptoms: no prior history Allergies/Adverse Reactions: Penicillins Allergy (Intermediate, Verified 09/29/16 14:23) Rash levofloxacin [From Levaquin] Allergy (Verified 09/29/16 14:23) Hx Tetanus, Diphtheria Vaccination/Date Given: No Hx Influenza Vaccination/Date Given: No Hx Pneumococcal Vaccination/Date Given: No Immunizations Up to Date: Yes - Review of Systems Constitutional: Weakness Eyes: No Symptoms Ears, Nose, & Throat: No Symptoms Respiratory: No Symptoms Cardiac: No Symptoms Abdominal/Gastrointestinal: Abdominal Pain (generalized mild crampin), Nausea, Vomiting, Diarrhea Genitourinary Symptoms: No Symptoms Musculoskeletal: No Symptoms Skin: No Symptoms Neurological: No Symptoms Psychological: No Symptoms Endocrine: No Symptoms Hematologic/Lymphatic: No Symptoms Immunological/Allergic: No Symptoms All Other Systems: Reviewed and Negative - Past Medical History Pertinent Past Medical History: Yes Neurological History: No Pertinent History ENT History: No Pertinent History Cardiac History: High Cholesterol, Hypertension Respiratory History: No Pertinent History Endocrine Medical History: No Pertinent History Musculoskeletal History: No Pertinent History GI Medical History: GERD, Hemorrhoids History: No Pertinent History Psycho-Social History: Anxiety, Panic Disorder Female Reproductive Disorders: No Pertinent History - Past Surgical History Past Surgical History: Yes Neuro Surgical History: No Pertinent History Cardiac: No Pertinent History Respiratory: No Pertinent History Gastrointestinal: No Pertinent History Genitourinary: No Pertinent History Musculoskeletal: No Pertinent History Female Surgical History: No Pertinent History Other Surgical History: cyst removed on neck - Social History Smoking Status: Never smoker Exposure to second hand smoke: No Drug Use: none Patient Lives Alone: Yes - Female History Hx Now: No - Nursing Vital Signs Nursing Vital Signs: Initial Vital Signs Temperature 100.5 F 05/30/18 20:03 Pulse Rate 87 05/30/18 20:03 Respiratory Rate 18 05/30/18 20:03 Blood Pressure 161/78 05/30/18 20:03 O2 Sat by Pulse Oximetry 97 05/30/18 20:03 Pain Scale Pain Intensity 3 - Physical Exam General Appearance: mild distress, alert, anxiety Eye Exam: PERRL/EOMI Ears, Nose, Throat Exam: normal ENT inspection, moist mucous membranes Neck Exam: normal inspection, non-tender, supple, full range of motion Respiratory Exam: normal breath sounds, lungs clear, airway intact, No chest tenderness, No respiratory distress Cardiovascular Exam: regular rate/rhythm, normal heart sounds, normal peripheral pulses Gastrointestinal/Abdomen Exam: soft, normal bowel sounds, No tenderness (midl diffuse), No guarding, No rebound Pelvic Exam: not done Rectal Exam: not done, No decreased tone Back Exam: normal inspection, normal range of motion, No vertebral tenderness Extremity Exam: normal inspection, normal range of motion, pelvis stable Neurologic Exam: alert, oriented x 3, 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, 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 Skin Exam: normal color, warm Lymphatic Exam: No adenopathy SpO2 Interpretation: normal SpO2: 97 O2 Delivery: Room Air - Course Nursing assessment & vital signs reviewed: Yes Ordered Tests: Active Orders 24 hr Category Date Time Status IV Insertion STAT Care 05/30/18 20:14 Active ABDOMEN AND PELVIS W/0 CONTRAS [CT] Stat Exams 05/30/18 20:27 Taken AMYLASE Stat Lab 05/30/18 20:31 Completed BLOOD CULTURE Stat Lab 05/30/18 20:31 Received CBC W DIFF Stat Lab 05/30/18 20:31 Completed CMP Stat Lab 05/30/18 20:31 Completed CULTURE,URINE Stat Lab 05/30/18 20:37 Received LIPASE Stat Lab 05/30/18 20:31 Completed Lactic Acid Stat Lab 05/30/18 20:14 Completed Lactic Acid Stat Lab 05/30/18 22:30 Completed UA W/RFX UR CULTURE Stat Lab 05/30/18 20:37 Completed Medication Summary Generic Name Dose Route Start Last Admin Trade Name Freq PRN Reason Stop Dose Admin Hydrocodone Bitart/Acetaminophen 1 tab 05/30/18 22:50 [place] 5/325 Mg PO 05/30/18 22:51 STAT ONE Metronidazole 500 mg 05/30/18 22:50 Flagyl 500 Mg PO 05/30/18 22:51 STAT ONE Trimethoprim/Sulfamethoxazole 1 tab 05/30/18 22:49 Bactrim Ds Tablet PO 05/30/18 22:50 STAT STA Discontinued Medications Generic Name Dose Route Start Last Admin Trade Name Freq PRN Reason Stop Dose Admin Sodium Chloride 1,000 mls @ 999 mls/hr 05/30/18 20:14 05/30/18 22:10 Sodium Chloride 0.9% 1000 Ml IV 05/30/18 21:14 Infused .Q1H1M STA Infusion Sodium Chloride Confirm 05/30/18 20:17 Sodium Chloride 0.9% 1000 Ml Administered 05/30/18 20:18 Dose 1,000 mls @ ud .ROUTE .STK-MED ONE Sodium Chloride 500 mls @ 500 mls/hr 05/30/18 21:25 05/30/18 22:24 Sodium Chloride 0.9% 500 Ml IV 05/30/18 22:24 500 mls/hr .Q1H ONE Administration Sodium Chloride Confirm 05/30/18 22:24 Sodium Chloride 0.9% 500 Ml Administered 05/30/18 22:25 Dose 500 mls @ ud IV .STK-MED ONE Ondansetron HCl 4 mg 05/30/18 20:14 05/30/18 20:20 Zofran 4 Mg/2 Ml Vial IV 05/30/18 20:15 4 mg STAT ONE Administration Ondansetron HCl Confirm 05/30/18 20:17 Zofran 4 Mg/2 Ml Vial Administered 05/30/18 20:18 Dose 4 mg .ROUTE .STK-MED ONE Lab/Rad Data: Laboratory Result Diagrams 05/30/18 20:31 05/30/18 20:31 Laboratory Results 05/30/18 05/30/18 05/30/18 Range/Units 22:30 20:37 20:31 WBC (4.0-10.5) K/mm3 RBC (4.1-5.4) M/mm3 Hgb (12.0-16.0) gm/dl Hct (35-47) % MCV (78-100) fl MCH (26-32) pg MCHC (32-36) g/dl RDW (11.5-14.0) % Plt Count (150-450) K/mm3 MPV (6-9.5) fl Gran % (36.0-66.0) % Eos # (Auto) (0-0.5) Absolute Lymphs (auto) (1.0-4.6) Absolute Monos (auto) (0.0-1.3) Lymphocytes % (24.0-44.0) % Monocytes % (0.0-12.0) % Eosinophils % (0.00-5.0) % Basophils % (0.0-0.4) % Absolute Granulocytes (1.4-6.9) Basophils # (0-0.4) Sodium (137-145) mmol/L Potassium (3.5-5.1) mmol/L Chloride (98-107) mmol/L Carbon Dioxide (22-30) mmol/L Anion Gap (5-15) MEQ/L BUN (7-17) mg/dL Creatinine (0.52-1.04) mg/dL Estimated GFR ML/MIN Glucose (74-106) mg/dL Lactic Acid 1.3 (0.4-2.0) Calcium (8.4-10.2) mg/dL Total Bilirubin (0.2-1.3) mg/dL AST (14-36) U/L ALT (0-35) U/L Alkaline Phosphatase (38-126) U/L Serum Total Protein (6.3-8.2) g/dL Albumin (3.5-5.0) g/dL Amylase (30-110) U/L Lipase (23-300) U/L Urine Color YELLOW (YELLOW) Urine Appearance SLIGHTLY CLOUDY (CLEAR) Urine pH 5.0 (5-6) Ur Specific [place] 1.028 (1.005-1.025) Urine Protein 30 (Negative) Urine Ketones NEGATIVE (NEGATIVE) Urine Blood NEGATIVE (0-5) Emanuel/ul Urine Nitrite NEGATIVE (NEGATIVE) Urine Bilirubin NEGATIVE (NEGATIVE) Urine Urobilinogen NEGATIVE (0-1) mg/dL Ur Leukocyte Esterase TRACE (NEGATIVE) Urine WBC (Auto) 6-10 (0-5) /HPF Urine RBC (Auto) 0-2 (0-2) /HPF U Epithel Cells (Auto) RARE (FEW) /HPF Urine Bacteria (Auto) RARE (NEGATIVE) /HPF Unidentified Crystals 2-5 (NEGATIVE) /HPF Urine Mucus (Auto) MANY (NEGATIVE) /HPF Urine Culture Reflexed YES (NO) Urine Glucose NEGATIVE (NEGATIVE) mg/dL Influenza Type A Ag NEGATIVE (NEGATIVE) Influenza Type B Ag NEGATIVE (NEGATIVE) RSV (PCR) NEGATIVE (Negative) 05/30/18 05/30/18 05/30/18 Range/Units 20:31 20:31 20:14 WBC 5.4 (4.0-10.5) K/mm3 RBC 4.29 (4.1-5.4) M/mm3 Hgb 14.0 (12.0-16.0) gm/dl Hct 42.8 (35-47) % MCV 99.8 (78-100) fl MCH 32.6 H (26-32) pg MCHC 32.7 (32-36) g/dl RDW 14.0 (11.5-14.0) % Plt Count 231 (150-450) K/mm3 MPV 9.5 (6-9.5) fl Gran % 64.5 (36.0-66.0) % Eos # (Auto) 0.12 (0-0.5) Absolute Lymphs (auto) 1.21 (1.0-4.6) Absolute Monos (auto) 0.56 (0.0-1.3) Lymphocytes % 22.5 L (24.0-44.0) % Monocytes % 10.4 (0.0-12.0) % Eosinophils % 2.2 (0.00-5.0) % Basophils % 0.4 (0.0-0.4) % Absolute Granulocytes 3.47 (1.4-6.9) Basophils # 0.02 (0-0.4) Sodium 138 (137-145) mmol/L Potassium 4.2 (3.5-5.1) mmol/L Chloride 103 (98-107) mmol/L Carbon Dioxide 24 (22-30) mmol/L Anion Gap 15.5 H (5-15) MEQ/L BUN 17 (7-17) mg/dL Creatinine 1.33 H (0.52-1.04) mg/dL Estimated GFR 41.5 ML/MIN Glucose 129 H (74-106) mg/dL Lactic Acid 2.3 H (0.4-2.0) Calcium 9.4 (8.4-10.2) mg/dL Total Bilirubin 0.80 (0.2-1.3) mg/dL AST 30 (14-36) U/L ALT 21 (0-35) U/L Alkaline Phosphatase 68 (38-126) U/L Serum Total Protein 8.1 (6.3-8.2) g/dL Albumin 4.4 (3.5-5.0) g/dL Amylase 57 (30-110) U/L Lipase 87 (23-300) U/L Urine Color (YELLOW) Urine Appearance (CLEAR) Urine pH (5-6) Ur Specific [place] (1.005-1.025) Urine Protein (Negative) Urine Ketones (NEGATIVE) Urine Blood (0-5) Emanuel/ul Urine Nitrite (NEGATIVE) Urine Bilirubin (NEGATIVE) Urine Urobilinogen (0-1) mg/dL Ur Leukocyte Esterase (NEGATIVE) Urine WBC (Auto) (0-5) /HPF Urine RBC (Auto) (0-2) /HPF U Epithel Cells (Auto) (FEW) /HPF Urine Bacteria (Auto) (NEGATIVE) /HPF Unidentified Crystals (NEGATIVE) /HPF Urine Mucus (Auto) (NEGATIVE) /HPF Urine Culture Reflexed (NO) Urine Glucose (NEGATIVE) mg/dL Influenza Type A Ag (NEGATIVE) Influenza Type B Ag (NEGATIVE) RSV (PCR) (Negative) - Progress Progress: improved, re-examined Progress Note: 05/30/18 22:51 ct abd/pelvis-no acute process Counseled pt/family regarding: lab results, diagnosis, need for follow-up, rad results - Departure Departure Disposition: Home Clinical Impression: UTI (urinary tract infection), Colitis Condition: Stable Critical Care Time: No Referrals: TORI WEINBERG [Primary Care Provider] - Additional Instructions: drink plenty of clear liquids. follow up with primary doctor for further management including colonoscopy if indicated. Prescriptions: Ondansetron ODT 4 MG [Zofran Odt 4 mg] 4 mg PO Q6H PRN PRN #10 tab.rapdis PRN Reason: Vomiting Metronidazole 500 mg [Flagyl 500 MG] 500 mg PO TID #21 tablet Smz/Tmp Ds Tablet [Bactrim Ds Tablet] 1 udtab PO BID #14 tablet
[2018-05-30] MEDS ORDERED: Zofran 4 MG/2 ML VIAL ONE ×2 (20:17→23:32)
[2018-05-30] MEDS ORDERED: Sodium Chloride 0.9% 1000 ML 1,000 ML ONE (20:17)
[2018-05-30 20:22] LABS: Lactic Acid 2.3 (0.4-2.0)
[2018-05-30 20:37] LABS: BASOPHIL % 0.4 % (0.0-0.4); Basophil (Absolute #) 0.02 (0-0.4); Eosinophil % 2.2 % (0.00-5.0); Eosinophil (Absolute #) 0.12 (0-0.5); Granulocyte Absolute (ANC) 3.47 (1.4-6.9); Granulocytes % 64.5 % (36.0-66.0); Hematocrit 42.8 % (35-47); Lymphocyte (Absolute #) 1.21 (1.0-4.6); Lymphocytes % 22.5 % (24.0-44.0); Mean Cell Volume 99.8 fl (78-100); Mean Corpuscular Hemoglobin 32.6 pg (26-32); Mean Corpuscular Hgb Concent. 32.7 g/dl (32-36); Mean Platelet Volume 9.5 fl (6-9.5); Monocyte (Absolute #) 0.56 (0.0-1.3); Monocytes % 10.4 % (0.0-12.0); Platelet Count 231 K/mm3 (150-450); Red Blood Count 4.29 M/mm3 (4.1-5.4); White Blood Count 5.4 K/mm3 (4.0-10.5)
[2018-05-30 20:47] LABS: ALBUMIN 4.4 g/dL (3.5-5.0); ANION GAP 15.5 MEQ/L (5-15); BILIRUBIN,TOTAL 0.8 mg/dL (0.2-1.3); Calcium 9.4 mg/dL (8.4-10.2); Creatinine 1 1.33 mg/dL (0.52-1.04); Potassium 4.2 mmol/L (3.5-5.1); Total Protein 8.1 g/dL (6.3-8.2)
[2018-05-30 21:04] LABS: Appearance SLIGHTLY CLOUDY (CLEAR); Bacteria RARE /HPF (NEGATIVE); Bilirubin NEGATIVE (NEGATIVE); Blood NEGATIVE Ery/ul (0-5); Epithelial Cells RARE /HPF (FEW); Glucose NEGATIVE (NEGATIVE); Ketones NEGATIVE (NEGATIVE); Leukocyte Esterase TRACE (NEGATIVE); Mucus MANY /HPF (NEGATIVE); Nitrite NEGATIVE (NEGATIVE); Protein,Urine Dip 30 (Negative); RBC 0-2 /HPF (0-2); Specific Gravity 1.028 (1.005-1.025); Urobilinogen NEGATIVE mg/dL (0-1)
[2018-05-30 21:16] LABS: INFLUENZA A NEGATIVE (NEGATIVE); INFLUENZA B NEGATIVE (NEGATIVE); RESPIRATORY SYNCTIAL VIRUS NEGATIVE (Negative)
[2018-05-30] MEDS ORDERED: Sodium Chloride 0.9% 500 ML 500 ML IV ONE ×2 (21:25→22:24)
[2018-05-30 22:33] VITALS: BP 134/76
[2018-05-30] MEDS ORDERED: BACTRIM DS TABLET PO STA (22:49)
[2018-05-30] MEDS ORDERED: Flagyl 500 MG PO ONE (22:50)
[2018-05-30] MEDS ORDERED: NORCO 5/325 MG PO ONE (22:50)
[2018-05-30 22:56] VITALS: O2SAT 97
[2018-05-30] MEDS ORDERED: BACTRIM DS TABLET PO ONE (23:04)
[2018-05-30] MEDS ORDERED: Flagyl 500 MG ONE (23:05)
[2018-05-30] MEDS ORDERED: NORCO 5/325 MG ONE (23:09)
[2018-05-30] MEDS ORDERED: Ativan 2 MG/1 ML VIAL IV ONE (23:42)
[2018-05-30] MEDS ORDERED: Ativan 2 MG/1 ML VIAL ONE (23:51)
[2018-05-31 00:25] VITALS: PULSE 86
--- NOTE | 2018-05-31 07:57 | XRAY ---
Indication: Lower abdominal pain. Nausea, vomiting, diarrhea, and fever. Multiple contiguous axial images obtained through the abdomen and pelvis without contrast as ordered. Comparison: None Lung bases demonstrates bibasilar fibrosis/scarring and left lower lobe calcified granuloma. No infiltrate or effusion. Heart is not enlarged. Large hiatal hernia with partial intrathoracic stomach. Noncontrasted stomach and bowel loops appear nonobstructed. Normal appendix. No free fluid/air. There are mid abdomen subcentimeter mesenteric nodes with stranding, possible mesenteric adenitis. Mild diffuse fatty liver, 1.5 cm right renal cyst, and calcified splenic granulomas. Remaining liver, gallbladder, pancreas, spleen, adrenal glands, kidneys, ureters, bladder, and uterus appear unremarkable for noncontrast exam. Mild aortoiliac calcifications without AAA. Osseous structures demonstrates osteopenia. No ventral or inguinal hernias. Impression: 1. Tiny mid abdomen mesenteric nodes with stranding, possible mesenteric adenitis. 2. Fatty liver, large hiatal hernia with partial intrathoracic stomach, right renal cyst, and evidence for old granulomatous disease. 3. Remaining CT abdomen/pelvis without contrast exam is negative. Comment: Preliminary interpretation was made by C. No critical discrepancy. CTDI 18.87
== END 2018-05-31 00:30 | disposition home or self-care (01) ==
LOC: ED 19:55
DX: N39.0 Urinary tract infection, site not specified (principal); K52.9 Noninfective gastroenteritis and colitis, unspecified; I10 Essential (primary) hypertension; F41.9 Anxiety disorder, unspecified
CPT/HCPCS: 36000; 36415; 74176; 80053; 81001; 82150; 83605; 83690; 85025; 87040; 87086; 87631; 96360; 96361; 96374; 96375; 96376; 99284; J2060; J2405; A9270-GY

== ENCOUNTER 2018-10-11 16:22 | Emergency (ER) | payer MEDICARE ==
--- NOTE | 2018-10-11 16:28 | ERPHSYRPT ---
- History of Present Illness Time Seen by Provider: 10/11/18 16:28 Historian: patient Exam Limitations: no limitations Physician History: 73 y/o white female present with 2 days of bladder pressure, dysuria, and urinary frequency. pt has had similar sx in past and they have been utis. pt states she can take pyridium and sulfa. pt denies cp, and soa. Timing/Duration: day(s) (2) Quality: burning Abdominal Pain Onset Location: suprapubic (mild pressure) Severity of Pain-Max: mild Severity of Pain-Current: mild Modifying Factors: Improves With: urinating Associated Symptoms: denies symptoms Previous symptoms: same symptoms as today Allergies/Adverse Reactions: Penicillins Allergy (Intermediate, Verified 10/11/18 16:35) Rash levofloxacin [From Levaquin] Allergy (Verified 10/11/18 16:35) Hx Tetanus, Diphtheria Vaccination/Date Given: No Hx Influenza Vaccination/Date Given: No Hx Pneumococcal Vaccination/Date Given: No - Review of Systems Constitutional: No Symptoms Eyes: No Symptoms Ears, Nose, & Throat: No Symptoms Respiratory: No Symptoms Cardiac: No Symptoms Abdominal/Gastrointestinal: No Symptoms Genitourinary Symptoms: Dysuria, Frequency Musculoskeletal: No Symptoms Skin: No Symptoms Neurological: No Symptoms Psychological: No Symptoms Endocrine: No Symptoms Hematologic/Lymphatic: No Symptoms Immunological/Allergic: No Symptoms All Other Systems: Reviewed and Negative - Past Medical History Pertinent Past Medical History: Yes Neurological History: No Pertinent History ENT History: No Pertinent History Cardiac History: High Cholesterol, Hypertension Respiratory History: No Pertinent History Endocrine Medical History: No Pertinent History Musculoskeletal History: No Pertinent History GI Medical History: GERD, Hemorrhoids History: No Pertinent History Psycho-Social History: Anxiety, Panic Disorder Female Reproductive Disorders: No Pertinent History - Past Surgical History Past Surgical History: Yes Neuro Surgical History: No Pertinent History Cardiac: No Pertinent History Respiratory: No Pertinent History Gastrointestinal: No Pertinent History Genitourinary: No Pertinent History Musculoskeletal: No Pertinent History Female Surgical History: No Pertinent History Other Surgical History: cyst removed on neck - Social History Smoking Status: Never smoker Exposure to second hand smoke: No Drug Use: none Patient Lives Alone: Yes - Nursing Vital Signs Nursing Vital Signs: Initial Vital Signs Temperature 98.7 F 10/11/18 16:26 Pulse Rate 74 10/11/18 16:26 Respiratory Rate 16 10/11/18 16:26 Blood Pressure 153/80 10/11/18 16:26 O2 Sat by Pulse Oximetry 94 L 10/11/18 16:26 Pain Scale Pain Intensity 5 - Physical Exam General Appearance: no apparent distress, alert, anxiety (mild) Eye Exam: PERRL/EOMI, eyes nml inspection Ears, Nose, Throat Exam: normal ENT inspection, moist mucous membranes Neck Exam: normal inspection, non-tender, supple, full range of motion Respiratory Exam: normal breath sounds, lungs clear, airway intact, No chest tenderness, No respiratory distress Cardiovascular Exam: regular rate/rhythm, normal heart sounds, normal peripheral pulses Gastrointestinal/Abdomen Exam: soft, normal bowel sounds, No tenderness Pelvic Exam: not done Rectal Exam: not done Back Exam: normal inspection, normal range of motion, No CVA tenderness, No vertebral tenderness Extremity Exam: normal inspection, normal range of motion, pelvis stable Neurologic Exam: alert, oriented x 3, 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, 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 Skin Exam: normal color, warm, dry Lymphatic Exam: No adenopathy SpO2 Interpretation: borderline oxygenation O2 Delivery: Room Air Ordered Tests: Active Orders 24 hr Category Date Time Status CULTURE,URINE Stat Lab 10/11/18 17:47 Received UA W/RFX UR CULTURE Stat Lab 10/11/18 17:47 Completed Lab/Rad Data: Laboratory Results 10/11/18 Range/Units 17:47 Urine Color YELLOW (YELLOW) Urine Appearance TURBID (CLEAR) Urine pH 5.0 (5-6) Ur Specific [place] 1.022 (1.005-1.025) Urine Protein >=500 (Negative) Urine Ketones NEGATIVE (NEGATIVE) Urine Blood MODERATE (0-5) Emanuel/ul Urine Nitrite NEGATIVE (NEGATIVE) Urine Bilirubin NEGATIVE (NEGATIVE) Urine Urobilinogen 2 (0-1) mg/dL Ur Leukocyte Esterase MODERATE (NEGATIVE) Urine WBC (Auto) >100 (0-5) /HPF Urine RBC (Auto) 51-100 (0-2) /HPF U Epithel Cells (Auto) NONE (FEW) /HPF Urine Bacteria (Auto) NONE (NEGATIVE) /HPF Urine Mucus (Auto) SLIGHT (NEGATIVE) /HPF Urine Culture Reflexed YES (NO) Urine Glucose NEGATIVE (NEGATIVE) mg/dL - Progress Progress: unchanged Counseled pt/family regarding: lab results, diagnosis, need for follow-up - Departure Departure Disposition: Home Clinical Impression: UTI (urinary tract infection) Condition: Stable Critical Care Time: No Referrals: TORI WEINBERG [Primary Care Provider] - Additional Instructions: drink plenty of fluids. add tylenol for pain. follow up with primary doctor for further management. Prescriptions: Phenazopyridine HCl 200 mg [Pyridium 200 mg] 200 mg PO TID #6 tablet Smz/Tmp Ds Tablet [Bactrim Ds Tablet] 1 udtab PO BID #20 tablet
[2018-10-11 17:44] VITALS: PULSE 72
[2018-10-11 17:49] LABS: Appearance TURBID (CLEAR); Bilirubin NEGATIVE (NEGATIVE); Blood MODERATE Ery/ul (0-5); Glucose NEGATIVE (NEGATIVE); Ketones NEGATIVE (NEGATIVE); Leukocyte Esterase MODERATE (NEGATIVE); Mucus SLIGHT /HPF (NEGATIVE); Nitrite NEGATIVE (NEGATIVE); Protein,Urine Dip >=500 (Negative); RBC 51-100 /HPF (0-2); Specific Gravity 1.022 (1.005-1.025); Urobilinogen 2 mg/dL (0-1); WBC >100 /HPF (0-5)
[2018-10-11 18:03] VITALS: BP 127/66; O2SAT 91
[2018-10-11] MEDS ORDERED: BACTRIM DS TABLET PO STA (18:04)
[2018-10-11] MEDS ORDERED: PYRIDIUM 200 MG PO ONE (18:05)
[2018-10-11] MEDS ORDERED: BACTRIM DS TABLET PO ONE (18:08)
[2018-10-11] MEDS ORDERED: PYRIDIUM 200 MG ONE (18:08)
== END 2018-10-11 18:14 | disposition home or self-care (01) ==
LOC: ED 16:22
DX: N39.0 Urinary tract infection, site not specified (principal)
CPT/HCPCS: 81001; 87077; 87086; 87186; 99283; A9270-GY

== ENCOUNTER 2018-11-22 15:06 | Inpatient (IN) | payer MEDICARE ==
--- NOTE | 2018-11-22 15:46 | ERPHSYRPT ---
- History of Present Illness Time Seen by Provider: 11/22/18 15:44 Historian: patient, family Exam Limitations: no limitations Patient Subjective Stated Complaint: pt here for pain to epigastric area for 2- 3 weeks now, with chills,no fever, was seen by dr pagan sent for high liver enzymes, Triage Nursing Assessment: pt alert, resp easy, skin w/d/p. walked in, abd soft Physician History: 73-year-old female came to the emergency room with complaining of epigastric and upper abdominal 80 a pain for last 2-3 weeks. She was seen by her primary care physician who had ordered some chemistry profile and which did so mildly elevated liver enzymes. Patient had a CAT scan done month ago and he did so large hiatal hernia, otherwise it was unremarkable. She started having increasing in her pain mainly in epigastric area without any radiation, associated with diarrhea and nausea, so she came to the emergency room. Timing/Duration: week(s) (two to three) Activities at Onset: none Quality: cramping Abdominal Pain Onset Location: epigastric Pain Radiation: no radiation Severity of Pain-Max: mild Severity of Pain-Current: moderate Modifying Factors: Improves With: nothing Associated Symptoms: diarrhea, loss of appetite Previous symptoms: no prior history Allergies/Adverse Reactions: Penicillins Allergy (Intermediate, Verified 11/22/18 15:33) Rash levofloxacin [From Levaquin] Allergy (Verified 11/22/18 15:33) Hx Tetanus, Diphtheria Vaccination/Date Given: No Hx Influenza Vaccination/Date Given: No Hx Pneumococcal Vaccination/Date Given: No Immunizations Up to Date: Yes - Review of Systems Constitutional: No Fever, No Chills Eyes: No Symptoms Ears, Nose, & Throat: No Symptoms Respiratory: No Cough, No Dyspnea Cardiac: No Chest Pain, No Edema, No Syncope Abdominal/Gastrointestinal: Abdominal Pain, Diarrhea, No Nausea, No Vomiting Genitourinary Symptoms: No Dysuria Musculoskeletal: No Back Pain, No Neck Pain Skin: No Rash Neurological: No Dizziness, No Focal Weakness, No Sensory Changes Psychological: No Symptoms Endocrine: No Symptoms All Other Systems: Reviewed and Negative - Past Medical History Pertinent Past Medical History: Yes Neurological History: No Pertinent History ENT History: No Pertinent History Cardiac History: High Cholesterol, Hypertension Respiratory History: No Pertinent History Endocrine Medical History: No Pertinent History Musculoskeletal History: No Pertinent History GI Medical History: GERD, Hemorrhoids History: No Pertinent History Psycho-Social History: Anxiety, Depression, Panic Disorder Female Reproductive Disorders: No Pertinent History - Past Surgical History Past Surgical History: Yes Neuro Surgical History: No Pertinent History Cardiac: No Pertinent History Respiratory: No Pertinent History Gastrointestinal: No Pertinent History Genitourinary: No Pertinent History Musculoskeletal: No Pertinent History Female Surgical History: No Pertinent History Other Surgical History: cyst removed on neck - Social History Smoking Status: Never smoker Exposure to second hand smoke: No Drug Use: none Patient Lives Alone: Yes - Female History Hx Last Menstrual Period: psot Hx Now: No - Nursing Vital Signs Nursing Vital Signs: Initial Vital Signs Temperature 97.5 F 11/22/18 15:27 Pulse Rate 8 L 11/22/18 15:27 Respiratory Rate 18 11/22/18 15:27 Blood Pressure 179/97 11/22/18 15:27 O2 Sat by Pulse Oximetry 100 11/22/18 15:27 Pain Scale Pain Intensity 10 - Physical Exam General Appearance: no apparent distress, alert Eye Exam: PERRL/EOMI, eyes nml inspection Ears, Nose, Throat Exam: normal ENT inspection, pharynx normal, moist mucous membranes Neck Exam: normal inspection, non-tender, supple, full range of motion Respiratory Exam: normal breath sounds, lungs clear, No respiratory distress Cardiovascular Exam: regular rate/rhythm, normal heart sounds Gastrointestinal/Abdomen Exam: soft, No tenderness, No mass Back Exam: normal inspection, normal range of motion, No CVA tenderness, No vertebral tenderness Extremity Exam: normal inspection, normal range of motion, pelvis stable Neurologic Exam: alert, oriented x 3, cooperative, normal mood/affect, nml cerebellar function, sensation nml, No motor deficits Skin Exam: normal color, warm, dry SpO2: 100 O2 Delivery: Room Air - Course Nursing assessment & vital signs reviewed: Yes - Radiology Ultrasound Exam Abdomen Ultrasound: gall bladder stones, cholecystits Ordered Tests: Active Orders 24 hr Category Date Time Status IV Insertion STAT Care 11/22/18 15:48 Active UPPER ABDOMEN [US] Stat Exams 11/22/18 15:49 Ordered AMYLASE Stat Lab 11/22/18 15:50 Results CBC W DIFF Stat Lab 11/22/18 15:50 Completed CMP Stat Lab 11/22/18 15:50 Results LIPASE Stat Lab 11/22/18 15:50 Results UA W/RFX UR CULTURE Stat Lab 11/22/18 15:49 Uncollected Transfer Order Routine Transfer 11/22/18 Ordered Medication Summary Discontinued Medications Generic Name Dose Route Start Last Admin Trade Name Loyda PRN Reason Stop Dose Admin Famotidine 20 mg 11/22/18 15:54 11/22/18 15:59 Pepcid 20 Mg Vial IV 11/22/18 15:55 20 mg STAT ONE Administration Famotidine Confirm 11/22/18 15:57 Pepcid 20 Mg Vial Administered 11/22/18 15:58 Dose 20 mg IV .STK-MED ONE Sodium Chloride 1,000 mls @ 999 mls/hr 11/22/18 15:48 11/22/18 15:58 Sodium Chloride 0.9% 1000 Ml IV 11/22/18 16:48 999 mls/hr .Q1H1M STA Administration Sodium Chloride Confirm 11/22/18 15:57 Sodium Chloride 0.9% 1000 Ml Administered 11/22/18 15:58 Dose 1,000 mls @ ud .ROUTE .STK-MED ONE Lab/Rad Data: Laboratory Result Diagrams 11/22/18 15:50 11/22/18 15:50 Laboratory Results 11/22/18 11/22/18 Range/Units 15:50 15:50 WBC 6.8 (4.0-10.5) K/mm3 RBC 3.98 L (4.1-5.4) M/mm3 Hgb 12.8 (12.0-16.0) gm/dl Hct 39.7 (35-47) % MCV 99.7 (78-100) fl MCH 32.1 H (26-32) pg MCHC 32.2 (32-36) g/dl RDW 13.7 (11.5-14.0) % Plt Count 269 (150-450) K/mm3 MPV 9.9 H (6-9.5) fl Gran % 54.8 (36.0-66.0) % Eos # (Auto) 0.20 (0-0.5) Absolute Lymphs (auto) 2.18 (1.0-4.6) Absolute Monos (auto) 0.69 (0.0-1.3) Lymphocytes % 31.9 (24.0-44.0) % Monocytes % 10.1 (0.0-12.0) % Eosinophils % 2.9 (0.00-5.0) % Basophils % 0.3 (0.0-0.4) % Absolute Granulocytes 3.75 (1.4-6.9) Basophils # 0.02 (0-0.4) Sodium 143 (137-145) mmol/L Potassium 3.7 (3.5-5.1) mmol/L Chloride 105 (98-107) mmol/L Carbon Dioxide 25 (22-30) mmol/L Anion Gap 17.0 H (5-15) MEQ/L BUN 14 (7-17) mg/dL Creatinine 1.18 H (0.52-1.04) mg/dL Estimated GFR 47.6 ML/MIN Glucose 113 H (74-106) mg/dL Calcium 9.4 (8.4-10.2) mg/dL Total Bilirubin 1.10 (0.2-1.3) mg/dL AST 203 H (14-36) U/L ALT 143 H (0-35) U/L Alkaline Phosphatase 150 H (38-126) U/L Serum Total Protein 8.3 H (6.3-8.2) g/dL Albumin 4.3 (3.5-5.0) g/dL Amylase Pending Lipase Pending - Progress Progress: unchanged, pain not gone completely Discussed with Dr.: Osbaldo Perez Will see patient in: hospital (observation) Counseled pt/family regarding: lab results, diagnosis, need for follow-up, rad results - Departure Departure Disposition: Observation Clinical Impression: Pancreatitis, gallstone Condition: Fair Critical Care Time: Yes Critical Care Time(excluding separately billable procedures): Critical 30-74 mins
[2018-11-22] MEDS ORDERED: Sodium Chloride 0.9% 1000 ML 1,000 ML IV STA (15:48)
[2018-11-22] MEDS ORDERED: Pepcid 20 MG VIAL IV ONE ×2 (15:54→15:57)
[2018-11-22] MEDS ORDERED: Sodium Chloride 0.9% 1000 ML 1,000 ML ONE (15:57)
[2018-11-22 16:04] LABS: Absolute Neutrophil Ct (ANC) 3.75 (1.4-6.9); BASOPHIL % 0.3 % (0.0-0.4); Basophil (Absolute #) 0.02 (0-0.4); Eosinophil % 2.9 % (0.00-5.0); Hematocrit 39.7 % (35-47); Hemoglobin 12.8 gm/dl (12.0-16.0); Lymphocyte (Absolute #) 2.18 (1.0-4.6); Lymphocytes % 31.9 % (24.0-44.0); Mean Cell Volume 99.7 fl (78-100); Mean Corpuscular Hgb Concent. 32.2 g/dl (32-36); Mean Platelet Volume 9.9 fl (6-9.5); Monocyte (Absolute #) 0.69 (0.0-1.3); Monocytes % 10.1 % (0.0-12.0); Neutrophil % 54.8 % (36.0-66.0); Platelet Count 269 K/mm3 (150-450); Red Blood Count 3.98 M/mm3 (4.1-5.4); Red Cell Distribution Width 13.7 % (11.5-14.0); White Blood Count 6.8 K/mm3 (4.0-10.5)
[2018-11-22 16:05] LABS: Mean Corpuscular Hemoglobin 32.1 pg (26-32)
[2018-11-22 16:36] LABS: ALBUMIN 4.3 g/dL (3.5-5.0); BILIRUBIN,TOTAL 1.1 mg/dL (0.2-1.3); Calcium 9.4 mg/dL (8.4-10.2); Creatinine 1 1.18 mg/dL (0.52-1.04); Potassium 3.7 mmol/L (3.5-5.1); Total Protein 8.3 g/dL (6.3-8.2)
[2018-11-22] MEDS ORDERED: Zofran 4 MG/2 ML VIAL IV STA (17:16)
[2018-11-22] MEDS ORDERED: SUBLIMAZE 100 MCG/2 ML IV ONE (17:17)
[2018-11-22] MEDS ORDERED: SUBLIMAZE 100 MCG/2 ML ONE (17:19)
[2018-11-22] MEDS ORDERED: Zofran 4 MG/2 ML VIAL ONE (17:20)
[2018-11-22] MEDS ORDERED: MORPHINE SULFATE 2 MG INJ IV PRN (17:56)
[2018-11-22 18:27] LABS: Appearance CLEAR (CLEAR); Bilirubin NEGATIVE (NEGATIVE); Blood NEGATIVE Ery/ul (0-5); Glucose NEGATIVE (NEGATIVE); Ketones NEGATIVE (NEGATIVE); Leukocyte Esterase TRACE (NEGATIVE); Mucus SLIGHT /HPF (NEGATIVE); Nitrite NEGATIVE (NEGATIVE); Protein,Urine Dip NEGATIVE (Negative); Specific Gravity 1.004 (1.005-1.025); Urobilinogen NEGATIVE mg/dL (0-1); WBC 0-2 /HPF (0-5)
[2018-11-22] MEDS: Sodium Chloride 0.9% 1000 ML 1,000 ML IV SCH (19:01)
--- NOTE | 2018-11-22 20:41 | XRAY ---
Indication: Pain. Two-dimensional abdominal sonogram performed. Comparison: None Gallbladder normally distended with a few tiny gallstones/gravel in the dependent portion. No gallbladder wall thickening or pericholecystic fluid. Common bile duct measures 3.5 mm. No intrahepatic biliary distention. Mild fatty echogenic liver without focal solid/cystic mass, hepatomegaly, or ascites. Spleen is homogeneous and enlarged measuring 13.6 cm in greatest dimension. Remainder shows portions of the pancreas, IVC, and aorta appear unremarkable. Right kidney measures 9.5 cm in length with a 1.4 cm upper pole cyst. Left kidney measures 8.3 cm and appears sonographically unremarkable. Impression: 1. Cholelithiasis without cholecystitis. 2. Fatty liver, splenomegaly, and right renal cyst. 3. Remaining abdominal sonogram is negative. Comment: Preliminary report was given.
[2018-11-22] MEDS ORDERED: MOTRIN 600 MG PO PRN (20:47)
[2018-11-22] MEDS ORDERED: Merrem 1 GM IV ONE (20:50)
[2018-11-22] MEDS ORDERED: Sodium Chloride 0.9% 100 ML IVPB 100 ML IV ONE (20:52)
[2018-11-22] MEDS: SUBLIMAZE 100 MCG/2 ML IV PRN (21:08)
[2018-11-22] MEDS: Pepcid 20 MG VIAL IV SCH (21:17)
[2018-11-22] MEDS ORDERED: Merrem 1 GM 1 G in Sodium Chloride 100ML MINI-BAG PLUS 100 ML IV SCH (22:00)
[2018-11-22] MEDS: Paxil 12.5MG CR PO SCH (22:52)
[2018-11-23] MEDS: Sodium Chloride 0.9% 1000 ML 1,000 ML IV SCH ×2 (04:41→15:48)
[2018-11-23 04:54] LABS: Absolute Neutrophil Ct (ANC) 2.38 (1.4-6.9); BASOPHIL % 0.2 % (0.0-0.4); Basophil (Absolute #) 0.01 (0-0.4); Eosinophil % 3.7 % (0.00-5.0); Eosinophil (Absolute #) 0.19 (0-0.5); Hematocrit 37.2 % (35-47); Hemoglobin 12.2 gm/dl (12.0-16.0); Lymphocyte (Absolute #) 1.79 (1.0-4.6); Lymphocytes % 35.2 % (24.0-44.0); Mean Cell Volume 99.7 fl (78-100); Mean Corpuscular Hemoglobin 32.7 pg (26-32); Mean Corpuscular Hgb Concent. 32.8 g/dl (32-36); Monocyte (Absolute #) 0.71 (0.0-1.3); Neutrophil % 46.9 % (36.0-66.0); Platelet Count 234 K/mm3 (150-450); Red Blood Count 3.73 M/mm3 (4.1-5.4); Red Cell Distribution Width 13.6 % (11.5-14.0); White Blood Count 5.1 K/mm3 (4.0-10.5)
[2018-11-23 05:03] LABS: ALBUMIN 3.6 g/dL (3.5-5.0); ANION GAP 13.1 MEQ/L (5-15); BILIRUBIN,TOTAL 0.9 mg/dL (0.2-1.3); Calcium 8.9 mg/dL (8.4-10.2); Creatinine 1 1.22 mg/dL (0.52-1.04); Potassium 4.4 mmol/L (3.5-5.1)
[2018-11-23] MEDS ORDERED: Levofloxacin 500MG/100ML D5W 500 MG/100 ML BAG IV SCH (10:00)
[2018-11-23] MEDS: Pepcid 20 MG VIAL IV SCH ×2 (10:24→21:09)
[2018-11-23] MEDS: MERREM 500MG 500 MG in Sodium Chloride 100ML MINI-BAG PLUS 100 ML IV SCH ×2 (10:24→21:09)
[2018-11-23] MEDS: SUBLIMAZE 100 MCG/2 ML IV PRN (10:24)
[2018-11-23] MEDS: Zofran 4 MG/2 ML VIAL IV PRN (10:24)
[2018-11-23 11:38] LABS: AMYLASE 783 U/L (30-110)
[2018-11-23 11:55] LABS: LIPASE 1474 U/L (23-300)
[2018-11-23] MEDS ORDERED: Nitrostat 0.4 MG Tablet SL PRN (12:24)
[2018-11-23] MEDS ORDERED: TYLENOL 325 MG PO PRN (12:24)
[2018-11-23] MEDS: Zestril 10 MG PO SCH (13:31)
[2018-11-23] MEDS: Protonix 40MG Tablet PO SCH (13:31)
[2018-11-23] MEDS: Toprol Xl 50 MG PO SCH (13:32)
[2018-11-23] MEDS: Ativan 1 MG PO PRN (13:34)
[2018-11-23] MEDS: Imdur 30 MG PO SCH (13:37)
[2018-11-23] MEDS: Dextrose 5% -0.45 NaCl 1000 ML 1,000 ML IV SCH (17:36)
[2018-11-23] MEDS: Paxil 12.5MG CR PO SCH (21:10)
[2018-11-24] MEDS: SUBLIMAZE 100 MCG/2 ML IV PRN (00:31)
[2018-11-24] MEDS: Dextrose 5% -0.45 NaCl 1000 ML 1,000 ML IV SCH ×4 (00:36→23:45)
[2018-11-24 04:57] LABS: Hematocrit 35.4 % (35-47); Hemoglobin 11.3 gm/dl (12.0-16.0); Mean Cell Volume 99.7 fl (78-100); Mean Corpuscular Hemoglobin 31.8 pg (26-32); Mean Corpuscular Hgb Concent. 31.9 g/dl (32-36); Mean Platelet Volume 9.6 fl (6-9.5); Platelet Count 200 K/mm3 (150-450); Red Blood Count 3.55 M/mm3 (4.1-5.4); Red Cell Distribution Width 13.4 % (11.5-14.0); White Blood Count 5.8 K/mm3 (4.0-10.5)
[2018-11-24 05:18] LABS: ALBUMIN 3.3 g/dL (3.5-5.0); ANION GAP 11.5 MEQ/L (5-15); BILIRUBIN,TOTAL 0.7 mg/dL (0.2-1.3); Calcium 8.6 mg/dL (8.4-10.2); Creatinine 1 1.08 mg/dL (0.52-1.04); Direct Bilirubin 0.3 mg/dL (0.0-0.4); Potassium 3.8 mmol/L (3.5-5.1); Total Protein 6.6 g/dL (6.3-8.2)
--- NOTE | 2018-11-24 08:24 | PCM.HP ---
History of Present Illness - Chief Complaint Chief Complaint: ACUTE PANCREATITIS, GALLSTONES, CHOLECYSTITIS Date: 11/23/18 History of Present Illness: is a 73 year old female who presented to ER with severe mid,upper abdominal pain and a 3 week history of episodic nausea,vomiting and diarrhea.She had a Ct abdomen in MAY 2018 that only showed a large hiatal herna and has been on 3 different antibiotics for UTI recently. Abdominal US in ER showed tiny gall stones.Amylase and lipase were highly elevated and bilirubin was normal. Patient was admitted for OBS and surgery consulted. 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 .States she had a chemical stress test CAD treated on medication denies Hx stents.) Abdominal/Gastrointestinal: Abdominal Pain, Nausea, Vomiting, Diarrhea, Appetite Changes (has not been eating much just soup and fluids over the past several days) Genitourinary Symptoms: Other (was treated for UTI 3 antibiotics she states recently ,UA in clinic last week had large leukocytes but no growth culture.) Endocrine: No Symptoms Hematologic/Lymphatic: No Symptoms Immunological/Allergic: No Symptoms Medications & Allergies Home Medications: Home Medication List Acetaminophen 325 mg [Tylenol 325 mg] 650 mg PO Q4H PRN PRN tablet [Rx Confirmed 11/22/18] Isosorbide Mononitrate 30 mg [Imdur 30 MG] 30 mg PO DAILY #30 tab 09/30/16 [Rx Confirmed 11/22/18] Lansoprazole 30 mg PO DAILY #30 capsule. 09/30/16 [Rx Confirmed 11/22/18] Lisinopril 10 mg [Zestril 10 MG] 10 mg PO DAILY #30 tablet 09/30/16 [Rx Confirmed 11/22/18] Metoprolol Succinate 50 mg PO DAILY #30 tab.er.24h 09/30/16 [Rx Confirmed ] Nitroglycerin 0.4 mg Tablet [Nitrostat 0.4 MG Tablet] 0.4 mg SL .Q5MIN PRN #30 bottle 09/30/16 [Rx Confirmed 11/22/18] Paroxetine HCl ER 12.5 mg [Paxil 12.5MG CR] 12.5 mg PO QHS #30 tab [Rx Confirmed 11/22/18] Lorazepam 1 mg PO DAILY 11/22/18 [History Confirmed 11/23/18] Lorazepam 1 mg [Ativan 1 MG] 1 mg PO DAILY PRN 11/23/18 [History Confirmed 11/23/18] Allergies/Adverse Reactions: Allergies Allergy/AdvReac Type Severity Reaction Status Date / Time [facility] Allergy Severe Verified 11/22/18 18:33 Penicillins Allergy Intermediate Verified 11/22/18 18:33 - Past Medical History Past Medical History: Yes Neurological History: No Pertinent History ENT History: No Pertinent History Cardiac History: Coronary Artery Disease, High Cholesterol, Hypertension Respiratory History: No Pertinent History Endocrine Medical History: No Pertinent History Musculoskelatal History: No Pertinent History GI Medical History: GERD, Hemorrhoids, Other (hiatal hernia) History: No Pertinent History Pyscho-Social History: Anxiety, Depression, Panic Disorder Reproductive Disorders: No Pertinent History - Female History Hx Last Menstrual Period: psot Are you now?: No - Past Surgical History Past Surgical History: Yes Neuro Surgical History: No Pertinent History Cardiac History: No Pertinent History, Other (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 by Dr Sullivan Maintenance Mechanic Supervisor CAD treated with medication.) Respiratory Surgery: No Pertinent History GI Surgical History: No Pertinent History Genitourinary Surgical Hx: No Pertinent History Musculskeletal Surgical Hx: No Pertinent History Female Surgical History: No Pertinent History, Other (NVDs) Other Surgical History: cyst removed on neck - Social History Smoking Status: Never smoker Exposure to second hand smoke: No Alcohol: None Drug Use: none - Physical Exam Vital Signs: Vital Signs - 24 hr Temp Pulse Resp BP Pulse Ox 11/24/18 07:40 98.4 F 61 18 161/64 95 11/24/18 04:00 98.1 F 62 14 129/64 94 L 11/24/18 00:00 98.4 F 65 16 130/74 96 11/23/18 21:16 93 L 11/23/18 20:25 100.4 F 72 18 149/67 90 L 11/23/18 16:25 99.4 F 68 18 189/86 95 11/23/18 12:00 98.8 F 67 18 155/72 92 L General Appearance: mild distress, lethargy, other (has had IV pain meds still having mid upper abdominal pain) Neurologic Exam: alert, oriented x 3, cooperative, senior quantity 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-XII nml as tested, normal mood/affect, nml cerebellar function, nml station & gait, sensation nml Eye Exam: PERRL/EOMI, eyes nml inspection, other (sclera nonicteric) Ears, Nose, Throat Exam: normal ENT inspection, moist mucous membranes Neck Exam: normal inspection, non-tender Respiratory Exam: normal breath sounds (no wheeze,ronchi or rales.) Cardiovascular Exam: regular rate/rhythm, other (no edema) Gastrointestinal/Abdomen Exam: soft, normal bowel sounds, tenderness ( periumbilical tenderness ,no guarding,fullness LUQ) Pelvic Exam: not done Rectal Exam: not done Back Exam: other (no CVA tenderness) Lymphatic Exam: No adenopathy Results - Labs Lab/Micro Results: Accuchecks Accucheck Value: 115 Accucheck Value: 100 Accucheck Value: 110 Lab Results-Last 24 Hours 11/23/18 11/24/18 11/24/18 Range/Units 05:00 04:40 04:40 WBC 5.8 (4.0-10.5) K/mm3 RBC 3.55 L (4.1-5.4) M/mm3 Hgb 11.3 L (12.0-16.0) gm/dl Hct 35.4 (35-47) % MCV 99.7 (78-100) fl MCH 31.8 (26-32) pg MCHC 31.9 L (32-36) g/dl RDW 13.4 (11.5-14.0) % Plt Count 200 (150-450) K/mm3 MPV 9.6 H (6-9.5) fl Sodium 139 (137-145) mmol/L Potassium 3.8 (3.5-5.1) mmol/L Chloride 107 (98-107) mmol/L Carbon Dioxide 25 (22-30) mmol/L Anion Gap 11.5 (5-15) MEQ/L BUN 7 (7-17) mg/dL Creatinine 1.08 H (0.52-1.04) mg/dL Estimated GFR 52.7 ML/MIN Glucose 135 H (74-106) mg/dL Hemoglobin A1c (4.5-6.0) % Calcium 8.6 (8.4-10.2) mg/dL Total Bilirubin 0.70 (0.2-1.3) mg/dL Direct Bilirubin 0.3 (0.0-0.4) mg/dL AST 78 H (14-36) U/L ALT 110 H (0-35) U/L Alkaline Phosphatase 98 (38-126) U/L Serum Total Protein 6.6 (6.3-8.2) g/dL Albumin 3.3 L (3.5-5.0) g/dL Amylase 783 H 124 H (30-110) U/L Lipase 1474 H 713 H (23-300) U/L 11/24/18 Range/Units 04:40 WBC (4.0-10.5) K/mm3 RBC (4.1-5.4) M/mm3 Hgb (12.0-16.0) gm/dl Hct (35-47) % MCV (78-100) fl MCH (26-32) pg MCHC (32-36) g/dl RDW (11.5-14.0) % Plt Count (150-450) K/mm3 MPV (6-9.5) fl Sodium (137-145) mmol/L Potassium (3.5-5.1) mmol/L Chloride (98-107) mmol/L Carbon Dioxide (22-30) mmol/L Anion Gap (5-15) MEQ/L BUN (7-17) mg/dL Creatinine (0.52-1.04) mg/dL Estimated GFR ML/MIN Glucose (74-106) mg/dL Hemoglobin A1c 5.33 (4.5-6.0) % Calcium (8.4-10.2) mg/dL Total Bilirubin (0.2-1.3) mg/dL Direct Bilirubin (0.0-0.4) mg/dL AST (14-36) U/L ALT (0-35) U/L Alkaline Phosphatase (38-126) U/L Serum Total Protein (6.3-8.2) g/dL Albumin (3.5-5.0) g/dL Amylase (30-110) U/L Lipase (23-300) U/L Accuchecks Accucheck Value: 115 Accucheck Value: 100 Accucheck Value: 110 - Radiology Impressions Radiology Exams & Impressions: Radiology Procedures Category Date Time Status ABDOMEN AND PELVIS W/0 CONTRAS [CT] Routine Exams 11/23/18 16:30 Taken UPPER ABDOMEN [US] Stat Exams 11/22/18 15:49 Completed Assessment/Plan (1) Gallstone Current Visit: Yes Status: Acute Assessment & Plan: surgery consult Code(s): K80.20 - CALCULUS OF GALLBLADDER W/O CHOLECYSTITIS W/O OBSTRUCTION (2) Pancreatitis due to obstruction of pancreatic duct Current Visit: Yes Status: Acute Assessment & Plan: NPO except ice chips ,CT abd and pelvis Code(s): K85.90 - ACUTE PANCREATITIS WITHOUT NECROSIS OR INFECTION, UNSP; K86.89 - OTHER SPECIFIED DISEASES OF PANCREAS (3) Hiatal hernia with gastroesophageal reflux Current Visit: Yes Status: Acute Assessment & Plan: continue PPI Code(s): K21.9 - GASTRO-ESOPHAGEAL REFLUX DISEASE WITHOUT ESOPHAGITIS; K44.9 - DIAPHRAGMATIC HERNIA WITHOUT OBSTRUCTION OR GANGRENE (4) CAD (coronary artery disease) Current Visit: Yes Status: Acute Assessment & Plan: obtain records from Maintenance Mechanic Supervisor,Dr Sullivan. Code(s): I25.10 - ATHSCL HEART DISEASE OF [place] CORONARY ARTERY W/O ANG PCTRS
--- NOTE | 2018-11-24 09:12 | XRAY ---
Indication: Abdomen pain. Gallstones. Multiple contiguous axial images obtained through the abdomen and pelvis without contrast as ordered. Comparison: May 30, 2018. Lung bases again demonstrates scattered fibrosis/scarring and left lower lobe calcified granulomas. Heart is not enlarged. Stable large hiatal hernia with partial intrathoracic stomach. Noncontrasted stomach and bowel loops appear nonobstructed. Descending and transverse colon now demonstrates mild circumferential wall thickening with stranding favoring duodenitis. Adjacent pancreas head and uncinate process demonstrates minimal stranding either reactive versus superimposed pancreatitis. No free fluid/air. New 2.5 cm gallstone. Stable right renal cyst and calcified splenic granulomas. Remaining liver, adrenal glands, kidneys, ureters, bladder, and uterus appear unremarkable for noncontrast exam. Again mild aortoiliac calcifications without AAA. Osseous structures intact again with mild osteopenia. No ventral or inguinal hernias. Impression: 1. New descending and transverse duodenal wall thickening with stranding favoring duodenitis. 2. Minimal pancreatic head and uncinate process stranding either reactive versus superimposed pancreatitis. 3. New gallstone. Gallbladder sonogram may yield further information if clinically warranted. 4. Stable large hiatal hernia, right renal cyst, and evidence for granulomatous disease. CT DI 18.98
[2018-11-24] MEDS: Zestril 10 MG PO SCH (09:25)
[2018-11-24] MEDS: Protonix 40MG Tablet PO SCH (09:25)
[2018-11-24] MEDS: Pepcid 20 MG VIAL IV SCH ×2 (09:25→21:47)
[2018-11-24] MEDS: Toprol Xl 50 MG PO SCH (09:25)
[2018-11-24] MEDS: Imdur 30 MG PO SCH (09:25)
--- NOTE | 2018-11-24 09:31 | CONS ---
DATE OF CONSULT: 11/23/2018 HISTORY: This is a 73 year-old female seen with primary care provider as well at bedside. The patient states she has had abdominal pain, nausea, vomiting x3 weeks. She has also had diarrhea for three weeks as well. She had severe abdominal pain yesterday evening. She was brought to the emergency room, worked up and admitted. It appears she has quite significant pancreatitis and her initial lipase was 63,966. Her numbers are trending down. She is feeling a little better today. She does report that she does continue to have epigastric pain, this is the worst site and it does radiate to her back. She also has some mild diffuse abdominal pain as well. PAST MEDICAL HISTORY: Includes hypertension, coronary artery disease, panic attacks, large hiatal hernia and reflux disease. PAST SURGICAL HISTORY: Neck cyst removal with Dr. Salinas in the past. MEDICATIONS: Metoprolol, Ativan, Paxil, lisinopril, lansoprazole, Imdur. The patient denies any NSAID products or any blood thinners. ALLERGIES: LEVOFLOXACIN. PENICILLIN. SOCIAL HISTORY: No tobacco. No significant alcohol use. FAMILY HISTORY: Positive for esophageal cancer in dad. No other GI, pancreas or other known cancers in her family. PHYSICAL EXAMINATION: Yesterday's temperature showed 99.2F, otherwise her vitals have been very stable. GENERAL: No acute distress. CVS: Regular rate and rhythm. PULMONARY: Nonlabored. Respiratory status is steady and nonlabored. ABDOMEN: Soft, mild tenderness to palpation epigastric. No rebound, no guarding. The remainder of the abdominal exam is very benign and nontender, nondistended. EXTREMITIES: Normal. HEENT: Eyes show no jaundice. LAB DATA AND TESTS: White blood cell count 6.8, hemoglobin 12.8, PLT count 269,000. Bilirubin was 1.1 and now it is 0.9. ALT 143, AST 203. Amylase and lipase now are much lower. Amylase is 783. Lipase is 1474. Right upper quadrant ultrasound showed gallstones and a fatty liver. She has not had a recent CT scan. ASSESSMENT: Gallstone pancreatitis. PLAN: Due to the gallstone pancreatitis and her chronic symptoms over the past three weeks that have been getting worse, we are going to get a CT scan of her abdomen and pelvis. Her BUN is slightly decreased with an elevated creatinine and so at this time we are going to get a noncontrasted CT abdomen and pelvis to further investigate her abdominal pain and the severity of her pancreatitis. We are going to keep her NPO. She is okay to have some ice chips and some medicines as long as she is not having vomiting. We are also going to continue to trend and follow her labs. Based on her final CT scan results and how she continues to improve clinically, that will determine when we do take out her gallbladder. At this time she is clinically improving significantly and her exam today is benign. I am hoping that the CT scan results do not show any severe complication of pancreatitis, that we will ideally be able to get the gallbladder out this admission. The patient understands all of this and she will be followed by our group.
[2018-11-24] MEDS: Ativan 1 MG PO PRN (09:34)
[2018-11-24] MEDS ORDERED: NON-FORMULARY ITEM (Lansoprazole [Lansoprazole] 30 MG) PO SCH (10:00)
[2018-11-24] MEDS: MERREM 500MG 500 MG in Sodium Chloride 100ML MINI-BAG PLUS 100 ML IV SCH ×2 (10:26→21:47)
--- NOTE | 2018-11-24 21:34 | PCM.NOTE ---
Date and Time: 11/24/182126 Subjective Assessment: Patient is feeling better today. States abdominal pain has improved and she has tolerated jello and broth today.Had small soft stool and no vomiting. She states she is looking forward to getting her gall bladder out tomorrow and does not have any questions. Denies any new symptoms. Objective Exam Neurologic Exam: alert, oriented x 3, cooperative, normal mood/affect, other ( got up to use the bathroom during visit without assistance without problem.) Skin Exam: normal color, warm, dry Respiratory Exam: normal breath sounds Cardiovascular Exam: regular rate/rhythm Gastrointestinal/Abdomen Exam: soft, normal bowel sounds, tenderness (minimal mid to left upper abdomen tenderness), other Extremity Exam: normal inspection OBJECTIVE DATA Vital Signs: Vital Signs - 24 hr Temp Pulse Resp BP Pulse Ox 11/24/18 19:14 97 11/24/18 19:00 99.0 F 56 L 16 147/66 97 11/24/18 15:00 99.0 F 57 L 18 145/70 97 11/24/18 11:00 98.3 F 61 16 119/58 93 L 11/24/18 07:40 98.4 F 61 18 161/64 95 11/24/18 04:00 98.1 F 62 14 129/64 94 L 11/24/18 00:00 98.4 F 65 16 130/74 96 Pain Assessment - Last Documented Pain Intensity 0 Pain Scale Used 0-10 Pain Scale Intake and Output: Intake & Output 11/22/18 11/23/18 11/24/18 11/25/18 11:59 11:59 11:59 11:59 Intake Total 1132 3077 Balance 1132 3077 Weight 74.3 kg 74.3 kg Lab Results: Accuchecks Accucheck Value: 108 Accucheck Value: 107 Accucheck Value: 115 Lab Results-Last 24 Hours 11/24/18 11/24/18 11/24/18 Range/Units 04:40 04:40 04:40 WBC 5.8 (4.0-10.5) K/mm3 RBC 3.55 L (4.1-5.4) M/mm3 Hgb 11.3 L (12.0-16.0) gm/dl Hct 35.4 (35-47) % MCV 99.7 (78-100) fl MCH 31.8 (26-32) pg MCHC 31.9 L (32-36) g/dl RDW 13.4 (11.5-14.0) % Plt Count 200 (150-450) K/mm3 MPV 9.6 H (6-9.5) fl Sodium 139 (137-145) mmol/L Potassium 3.8 (3.5-5.1) mmol/L Chloride 107 (98-107) mmol/L Carbon Dioxide 25 (22-30) mmol/L Anion Gap 11.5 (5-15) MEQ/L BUN 7 (7-17) mg/dL Creatinine 1.08 H (0.52-1.04) mg/dL Estimated GFR 52.7 ML/MIN Glucose 135 H (74-106) mg/dL Hemoglobin A1c 5.33 (4.5-6.0) % Calcium 8.6 (8.4-10.2) mg/dL Total Bilirubin 0.70 (0.2-1.3) mg/dL Direct Bilirubin 0.3 (0.0-0.4) mg/dL AST 78 H (14-36) U/L ALT 110 H (0-35) U/L Alkaline Phosphatase 98 (38-126) U/L Serum Total Protein 6.6 (6.3-8.2) g/dL Albumin 3.3 L (3.5-5.0) g/dL Amylase 124 H (30-110) U/L Lipase 713 H (23-300) U/L Radiology Exams: Radiology Procedures Category Date Time Status ABDOMEN AND PELVIS W/0 CONTRAS [CT] Routine Exams 11/23/18 16:30 Completed Assessment/Plan (1) Gallstone Current Visit: Yes Status: Acute Qualifiers: Cholecystitis acuity: acute Biliary obstruction: without biliary obstruction Code(s): K80.20 - CALCULUS OF GALLBLADDER W/O CHOLECYSTITIS W/O OBSTRUCTION (2) Pancreatitis due to obstruction of pancreatic duct Current Visit: Yes Status: Acute Code(s): K85.90 - ACUTE PANCREATITIS WITHOUT NECROSIS OR INFECTION, UNSP; K86.89 - OTHER SPECIFIED DISEASES OF PANCREAS (3) Hiatal hernia with gastroesophageal reflux Current Visit: Yes Status: Acute Code(s): K21.9 - GASTRO-ESOPHAGEAL REFLUX DISEASE WITHOUT ESOPHAGITIS; K44.9 - DIAPHRAGMATIC HERNIA WITHOUT OBSTRUCTION OR GANGRENE (4) CAD (coronary artery disease) Current Visit: Yes Status: Chronic Qualifiers: Associated angina: without angina Code(s): I25.10 - ATHSCL HEART DISEASE OF [place] CORONARY ARTERY W/O ANG PCTRS (5) Vomiting and diarrhea Current Visit: Yes Status: Resolved Code(s): R11.10 - VOMITING, UNSPECIFIED ; R19.7 - DIARRHEA, UNSPECIFIED
[2018-11-24] MEDS: Paxil 12.5MG CR PO SCH (21:47)
[2018-11-24 22:21] LABS: 027 TOX PROD PRESUMPTIVE NEGATIVE (NEGATIVE); TOXIGENIC C. DIFF ORG NEGATIVE (NEGATIVE)
[2018-11-24 22:46] LABS: Adenovirus F 40/41 NEGATIVE (NEGATIVE); Astrovirus NEGATIVE (NEGATIVE); C. Difficile Organism NEGATIVE (NEGATIVE); Campylobacter NEGATIVE (NEGATIVE); Cryptosporidium NEGATIVE (NEGATIVE); Cyclospora cayentanensis NEGATIVE (NEGATIVE); Entamoeaba histolytica NEGATIVE (NEGATIVE); Enteroaggregative E.coli NEGATIVE (NEGATIVE); Enteropathogenic E.coli NEGATIVE (NEGATIVE); Enterotoxigenic E.coli NEGATIVE (NEGATIVE); Giardia lamblia NEGATIVE (NEGATIVE); Norovirus GI/GII NEGATIVE (NEGATIVE); Plesiomonas shigelloides NEGATIVE (NEGATIVE); Rotavirus A NEGATIVE (NEGATIVE); Salmonella NEGATIVE (NEGATIVE); Sapovirus NEGATIVE (NEGATIVE); Shiga-like toxin prod.E.coli NEGATIVE (NEGATIVE); Vibrio NEGATIVE (NEGATIVE); Vibrio cholerae NEGATIVE (NEGATIVE); Yersinia enterocolitica NEGATIVE (NEGATIVE)
[2018-11-25] MEDS: Ativan 1 MG PO PRN ×2 (00:02→09:30)
[2018-11-25] MEDS: Dextrose 5% -0.45 NaCl 1000 ML 1,000 ML IV SCH (09:23)
[2018-11-25] MEDS: Protonix 40MG Tablet PO SCH (09:24)
[2018-11-25] MEDS: Imdur 30 MG PO SCH (09:24)
[2018-11-25] MEDS: Toprol Xl 50 MG PO SCH (09:24)
[2018-11-25] MEDS: Zestril 10 MG PO SCH (09:24)
[2018-11-25] MEDS: MERREM 500MG 500 MG in Sodium Chloride 100ML MINI-BAG PLUS 100 ML IV SCH (09:24)
[2018-11-25] MEDS: Pepcid 20 MG VIAL IV SCH ×2 (09:25→21:33)
[2018-11-25] MEDS ORDERED: Sensorcaine 0.25% 10 ML ONE (09:59)
[2018-11-25] MEDS ORDERED: Lactated Ringers 1,000 ML IV SCH (13:00)
[2018-11-25] MEDS ORDERED: CLINDAMYCIN-D5W 900 MG/50 ML*** 900 MG/50 ML BAG IV SCH (13:00)
[2018-11-25] MEDS ORDERED: SUBLIMAZE 100 MCG/2 ML ONE (15:00)
[2018-11-25] MEDS ORDERED: Xylocaine-Mpf 2% 5 Ml Vial ONE (15:11)
[2018-11-25] MEDS ORDERED: SUBLIMAZE 250 MCG/5 ML ONE (15:11)
[2018-11-25] MEDS ORDERED: Zemuron 100 MG/10 ML ONE (15:11)
[2018-11-25] MEDS ORDERED: Versed 2 MG/2 ML Injection ONE (15:11)
[2018-11-25] MEDS ORDERED: Amidate 20 MG/10 ML IV ONE (15:11)
[2018-11-25] MEDS ORDERED: Quelicin Fliptop 200 MG/10 ML ONE (15:11)
[2018-11-25] MEDS ORDERED: APRESOLINE 20 MG/ML INJ ONE (15:44)
[2018-11-25] MEDS ORDERED: BREVIBLOC 100 MG/10 ML IV ONE (15:44)
[2018-11-25] MEDS ORDERED: BRIDION 200MG/2ML IV ONE (15:55)
[2018-11-25] MEDS ORDERED: NORCO 5/325 MG PO PRN (17:05)
[2018-11-25] MEDS: Paxil 12.5MG CR PO SCH ×2 (21:33→22:55)
[2018-11-25] MEDS: Zofran 4 MG/2 ML VIAL IV PRN (21:37)
[2018-11-26] MEDS: Dextrose 5% -0.45 NaCl 1000 ML 1,000 ML IV SCH (02:06)
[2018-11-26 04:45] LABS: Hematocrit 32.7 % (35-47); Hemoglobin 10.9 gm/dl (12.0-16.0); Mean Cell Volume 98.5 fl (78-100); Mean Corpuscular Hemoglobin 32.8 pg (26-32); Mean Corpuscular Hgb Concent. 33.3 g/dl (32-36); Mean Platelet Volume 9.8 fl (6-9.5); Platelet Count 203 K/mm3 (150-450); Red Blood Count 3.32 M/mm3 (4.1-5.4); White Blood Count 4.6 K/mm3 (4.0-10.5)
[2018-11-26 05:00] LABS: ALBUMIN 3.2 g/dL (3.5-5.0); ANION GAP 10.8 MEQ/L (5-15); BILIRUBIN,TOTAL 0.4 mg/dL (0.2-1.3); Calcium 8.6 mg/dL (8.4-10.2); Creatinine 1 0.97 mg/dL (0.52-1.04); Direct Bilirubin 0.2 mg/dL (0.0-0.4); Potassium 3.2 mmol/L (3.5-5.1); Total Protein 6.3 g/dL (6.3-8.2)
--- NOTE | 2018-11-26 08:15 | OP ---
SURGERY DATE/TIME: 11/25/2018 1511 PREOPERATIVE DIAGNOSIS: Gallstone pancreatitis. POSTOPERATIVE DIAGNOSIS: Gallstone pancreatitis. PROCEDURE: Laparoscopic cholecystectomy. SURGEON: Soren Sandhu M.D. ANESTHESIA: General. ESTIMATED BLOOD LOSS: Less than 10 cc. COMPLICATIONS: None. SPECIMEN: Gallbladder. FINDINGS: Same. INDICATION: The patient presents with laboratory and imaging studies consistent with gallstone pancreatitis. After discussing risks, benefits of cholecystectomy after her pancreatitis had resolved, the patient wished to proceed with surgery. DESCRIPTION OF PROCEDURE: The patient was brought to OR, placed supine on operating table, placed under general anesthesia. The abdomen was prepped and draped in sterile fashion. A small incision was made in the left upper quadrant. Veress needle inserted. Pneumoperitoneum obtained. A 5 mm optical trocar inserted. Under direct visualization the abdomen entered. Area under entry was inspected. There did not appear to be any inadvertent injury. An additional 11 mm trocar placed at the umbilicus and two - 5 mm right upper quadrant trocars placed. Patient placed in Trendelenburg position, rolled to the left. Infundibulum retracted superior lateral by the fundus. Infundibulum retracted inferior laterally. [place] was dissected with hook electrocautery. The cystic duct and cystic artery were skeletonized. The bottom third of the hepatocystic plate was completely cleared off and excellent critical view was obtained. The cystic duct and cystic artery were doubly clipped with 5 mm metal clip cross tie tram loader with two clips on the patient's side and one clip on the specimen side and transected with hook scissors. The remainder of the gallbladder was removed from the liver bed. At the top of the liver bed there was a little bit larger posterior vessel running all the way to the top of the liver bed and this was clipped and divided and the gallbladder was then removed from the 11 mm trocar site. This was then closed with 0 Vicryl suture with a suture passer under direct visualization. The remaining trocars were removed under direct visualization. Abdomen desufflated. Wounds injected with 0.25% Marcaine. Wounds were closed with 4-0 sutures. Steri-Strips and dressings were applied. The patient recovered and taken to PACU in stable condition.
[2018-11-26 08:40] VITALS: PULSE 63
--- NOTE | 2018-11-26 08:53 | PCM.DS ---
Discharge Summary Date of Admission: 11/22/18 23:39 Admitting Physician: PINKY REED DO Consults: Consults on Case 11/22/18 17:56 Consult Surgery ROUTINE Primary Care Provider: PINKY REED DO Allergies Allergies levofloxacin [From Levaquin] Allergy (Severe, Verified 11/22/18 18:33) throat swelling Penicillins Allergy (Intermediate, Verified 11/22/18 18:33) unsure Hospital Summary - Hospital Course Hospital Course: Pt is a 73 yo female pt of DR. Reed with HTN who was admitted through ER with gallstone pancreatitis, elevated LFTs and lipase of > 62,000. CT abd/ pelvis with duodenal wall thickening, pancreatic stranding, and gallstone. U/S with cholelithiasis. She had a cholecystectomy yesterday and is denying any abdominal pain today. She is tolerating clear liquid diet. Will be discharged to home after being seen by surgery; they anticipated she would be released today. - Vitals & Intake/Output Vital Signs: Vital Signs Temperature 99.5 F 11/26/18 08:00 Pulse Rate 63 11/26/18 08:00 Respiratory Rate 20 11/26/18 08:00 Blood Pressure 146/66 11/26/18 08:00 O2 Sat by Pulse Oximetry 95 11/26/18 08:00 Oxygen-Last Documented O2 Percentage 2 Liters = 28% Intake & Output: Intake & Output 11/23/18 11/24/18 11/25/18 11/26/18 11:59 11:59 11:59 11:59 Intake Total 1132 3077 2786 1158 Output Total 1050 Balance 1132 3077 2786 108 Weight 74.3 kg 74.3 kg 74.3 kg - Lab Result Diagrams: 11/26/18 04:46 11/26/18 04:46 Lab Results-Last 24 Hrs: Accuchecks Accucheck Value: 119 Accucheck Value: 102 Accucheck Value: 95 Lab Results-Last 24 Hours 11/26/18 11/26/18 Range/Units 04:46 04:46 WBC 4.6 (4.0-10.5) K/mm3 RBC 3.32 L (4.1-5.4) M/mm3 Hgb 10.9 L (12.0-16.0) gm/dl Hct 32.7 L (35-47) % MCV 98.5 (78-100) fl MCH 32.8 H (26-32) pg MCHC 33.3 (32-36) g/dl RDW 13.0 (11.5-14.0) % Plt Count 203 (150-450) K/mm3 MPV 9.8 H (6-9.5) fl Sodium 140 (137-145) mmol/L Potassium 3.2 L (3.5-5.1) mmol/L Chloride 107 (98-107) mmol/L Carbon Dioxide 26 (22-30) mmol/L Anion Gap 10.8 (5-15) MEQ/L BUN 3 L (7-17) mg/dL Creatinine 0.97 (0.52-1.04) mg/dL Estimated GFR 59.7 ML/MIN Glucose 127 H (74-106) mg/dL Calcium 8.6 (8.4-10.2) mg/dL Total Bilirubin 0.40 (0.2-1.3) mg/dL Direct Bilirubin 0.2 (0.0-0.4) mg/dL AST 33 (14-36) U/L ALT 54 H (0-35) U/L Alkaline Phosphatase 78 (38-126) U/L Serum Total Protein 6.3 (6.3-8.2) g/dL Albumin 3.2 L (3.5-5.0) g/dL Micro Results-Entire Visit: Accuchecks Accucheck Value: 119 Accucheck Value: 102 Accucheck Value: 95 - Procedures and Test Procedures and Tests throughout Hospitalization: Therapy Orders & Screens 11/25/18 09:47 EKG ROUTINE Comment: Diagnosis: ACUTE PANCREATITIS, GALLSTONES, CHOLECYSTITIS 11/25/18 20:05 Oxygen Nasal Cannula 2 lpm Comment: Diagnosis: ACUTE PANCREATITIS, GALLSTONES, CHOLECYSTITIS Discharge Exam General Appearance: no apparent distress, alert Neurologic Exam: oriented x 3, cooperative Eye Exam: eyes nml inspection Ears, Nose, Throat Exam: moist mucous membranes Neck Exam: normal inspection Respiratory Exam: normal breath sounds, lungs clear, No crackles/rales, No rhonchi, No wheezing Cardiovascular Exam: regular rate/rhythm, normal heart sounds, No murmur Gastrointestinal/Abdomen Exam: soft, normal bowel sounds, other (3 small wounds covered with steri-strip & bandaid; c/d/i), No tenderness, No distention Extremity Exam: normal inspection, No pedal edema, No swelling Skin Exam: normal color, warm, dry, No rash Final Diagnosis/Problem List - Final Discharge Diagnosis/Problem (1) S/P cholecystectomy Current Visit: Yes Status: Acute Assessment & Plan: She appears well, likely to be discharged to home today, await surgery instructions, thank you. Code(s): Z90.49 - ACQUIRED ABSENCE OF OTHER SPECIFIED PARTS OF DIGESTIVE TRACT (2) Pancreatitis, gallstone Current Visit: Yes Status: Resolved Assessment & Plan: Her amylase and lipase have been trending down. Will check once more today, I anticipate they should be nearly normal. Liver enzymes nearly normal 2d ago. She will need to f/u with Dr. Reed next week. Code(s): K85.10 - BILIARY ACUTE PANCREATITIS WITHOUT NECROSIS OR INFECTION (3) Hypokalemia Current Visit: Yes Status: Acute Assessment & Plan: mild; will add K+ to her fluids. I think as she increases her diet this will resolve. Code(s): E87.6 - HYPOKALEMIA (4) CAD (coronary artery disease) Current Visit: Yes Status: Chronic Code(s): I25.10 - ATHSCL HEART DISEASE OF [place] CORONARY ARTERY W/O ANG PCTRS (5) HTN (hypertension) Current Visit: No Status: Chronic Assessment & Plan: Stable. Code(s): I10 - ESSENTIAL (PRIMARY) HYPERTENSION - Discharge Disposition: Home, Self-Care Condition: Stable Prescriptions: Continue Isosorbide Mononitrate 30 mg [Imdur 30 MG] 30 mg PO DAILY #30 tab Nitroglycerin 0.4 mg Tablet [Nitrostat 0.4 MG Tablet] 0.4 mg SL .Q5MIN PRN #30 bottle PRN Reason: Chest Pain Paroxetine HCl ER 12.5 mg [Paxil 12.5MG CR] 12.5 mg PO QHS #30 tab Acetaminophen 325 mg [Tylenol 325 mg] 650 mg PO Q4H PRN PRN tablet PRN Reason: Pain And/Or Fever Lansoprazole 30 mg PO DAILY #30 capsule. Metoprolol Succinate 50 mg PO DAILY #30 tab.er.24h Lisinopril 10 mg [Zestril 10 MG] 10 mg PO DAILY #30 tablet Lorazepam 1 mg PO DAILY Lorazepam 1 mg [Ativan 1 MG] 1 mg PO DAILY PRN PRN Reason: Anxiety Follow up with: PINKY REED DO [Primary Care Provider] - 1 Week
[2018-11-26] MEDS ORDERED: D5W/0.45NS W/ 20mEq KCl 1000 ML 1,000 ML IV SCH (09:00)
[2018-11-26] MEDS: Imdur 30 MG PO SCH (10:28)
[2018-11-26] MEDS: Toprol Xl 50 MG PO SCH (10:28)
[2018-11-26] MEDS: Zestril 10 MG PO SCH (10:28)
[2018-11-26] MEDS: Pepcid 20 MG VIAL IV SCH (10:28)
[2018-11-26] MEDS: Protonix 40MG Tablet PO SCH (10:28)
[2018-11-26 10:30] LABS: AMYLASE 51 U/L (30-110); LIPASE 216 U/L (23-300)
[2018-11-26] MEDS: Ativan 1 MG PO PRN (10:40)
[2018-11-26 12:14] VITALS: BP 184/77; O2SAT 93
== END 2018-11-26 13:21 | disposition home or self-care (01) | DRG 419 ==
LOC: ED 15:06 → MED SURG 16:54 → OBSVTOIN 23:39
PROVIDERS: ADMIT Family Medicine; ATTEND Family Medicine
PROC: 0FT44ZZ Resection of Gallbladder, Percutaneous Endoscopic Approach (ICD-10-PCS; principal; 2018-11-25)
DX: K85.10 Biliary acute pancreatitis without necrosis or infection (principal); I10 Essential (primary) hypertension; E78.00 Pure hypercholesterolemia, unspecified; E87.6 Hypokalemia; I25.10 Atherosclerotic heart disease of native coronary artery without angina pectoris; K44.9 Diaphragmatic hernia without obstruction or gangrene; Z79.899 Other long term (current) drug therapy; K21.9 Gastro-esophageal reflux disease without esophagitis; R11.10 Vomiting, unspecified; R19.7 Diarrhea, unspecified
CPT/HCPCS: 36415; 74176; 76700; 80048; 80053; 80076; 81001; 82150; 82248; 82962; 83036; 83690; 85025; 85027; 87493; 87507; 88304; 93005; 93268; 94762; 96374; 96375; 99100; 99285; 99291; J0330; J0360; J2250; J2405; J3010; A9270-GY

== ENCOUNTER 2019-01-06 20:00 | Emergency (ER) | payer MEDICARE ==
--- NOTE | 2019-01-06 20:10 | ERPHSYRPT ---
- History of Present Illness Time Seen by Provider: 01/06/19 20:10 Source: patient Exam Limitations: no limitations Physician History: ppatient was taking out the trash and fell.. She landed on her left arm and the face. Has a painful swollen tender left wrist with a might deformity. And also has a mild pain on her left facial area. No loss of consciousness. Occurred: just prior to arrival Reason for Fall: slipped Injuries/Pain Location: face, upper extremity Loss of Consciousness: no loss of consciousness Quality: throbbing Severity of Pain-Max: moderate Severity of Pain-Current: moderate Modifying Factors: Improves With: movement Associated Symptoms (Fall): extremity injury, No abdominal pain, No back pain, No confusion, No chest pain, No dizziness, No headache, No lightheadedness, No muscle spasms, No nausea, No neck pain, No ringing in ears, No seizures, No shortness of breath, No slurred speech, No trouble walking, No vomiting, No vision changes Body Map: 1 - left wrist and the proximal hand on the dorsal side Allergies/Adverse Reactions: levofloxacin [From Levaquin] Allergy (Severe, Verified 01/06/19 20:25) throat swelling Penicillins Allergy (Intermediate, Verified 01/06/19 20:25) unsure Home Medications: Lorazepam 1 mg PO DAILY 11/22/18 [History] Lorazepam 1 mg [Ativan 1 MG] 1 mg PO DAILY PRN 11/23/18 [History] Hx Tetanus, Diphtheria Vaccination/Date Given: No Hx Influenza Vaccination/Date Given: No Hx Pneumococcal Vaccination/Date Given: No - Review of Systems Constitutional: No Fever, No Chills Eyes: No Symptoms Ears, Nose, & Throat: No Symptoms Respiratory: No Cough, No Dyspnea Cardiac: No Chest Pain, No Edema, No Syncope Abdominal/Gastrointestinal: No Abdominal Pain, No Nausea, No Vomiting, No Diarrhea Genitourinary Symptoms: No Dysuria Musculoskeletal: Other (painful swollen tender left wrist and proximal hand on the dorsal side.), No Back Pain, No Neck Pain Skin: No Rash Neurological: No Dizziness, No Focal Weakness, No Sensory Changes Psychological: No Symptoms Endocrine: No Symptoms All Other Systems: Reviewed and Negative - Past Medical History Pertinent Past Medical History: Yes Neurological History: No Pertinent History ENT History: No Pertinent History Cardiac History: Coronary Artery Disease, High Cholesterol, Hypertension Respiratory History: No Pertinent History Endocrine Medical History: No Pertinent History Musculoskeletal History: No Pertinent History GI Medical History: GERD, Hemorrhoids, Other (hiatal hernia) History: No Pertinent History Psycho-Social History: Anxiety, Depression, Panic Disorder Female Reproductive Disorders: No Pertinent History - Past Surgical History Past Surgical History: Yes Neuro Surgical History: No Pertinent History Cardiac: No Pertinent History, Other (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 by Dr Sullivan Senior Game Designer CAD treated with medication.) Respiratory: No Pertinent History Gastrointestinal: No Pertinent History Genitourinary: No Pertinent History Musculoskeletal: No Pertinent History Female Surgical History: No Pertinent History, Other (NVDs) Other Surgical History: cyst removed on neck - Social History Smoking Status: Never smoker Exposure to second hand smoke: No Drug Use: none Patient Lives Alone: Yes - Nursing Vital Signs Nursing Vital Signs: Initial Vital Signs Temperature 98.3 F 01/06/19 20:12 Pulse Rate 55 L 01/06/19 20:12 Respiratory Rate 21 01/06/19 20:12 Blood Pressure 169/87 01/06/19 20:12 O2 Sat by Pulse Oximetry 97 01/06/19 20:12 Pain Scale Pain Intensity 10 - [place] Coma Score Best Eye Response ([place]): (4) open spontaneously Best Verbal Response ([place]): (5) oriented Best Motor Response ([place]): (6) obeys commands [place] Total: 15 - Physical Exam General Appearance: no apparent distress, alert Head Injury: no evidence of injury, contusions (mild pain and tenderness over the left zygomatic area.) Eye Exam: PERRL/EOMI, eyes nml inspection, scleral icterus, No photophobia ENT Exam: airway nml, No dental injury Neck Exam: supple, trachea midline, full range of motion, normal alignment, normal inspection, No focal neuro deficit, No limited range of motion, No tenderness Respiratory/Chest Exam: normal breath sounds, No chest tenderness, No respiratory distress, No crepitus Cardiovascular Exam: normal heart sounds, regular rate/rhythm Gastrointestinal Exam: soft, No tenderness, No distention, No guarding, No ecchymosis Back Exam: normal inspection, No vertebral tenderness Extremity Exam: normal inspection, normal range of motion, pelvis stable, other (painful swollen tender left wrist and proximal hand on the dorsal side.normal distal neurovascular function), No deformities Neurologic Exam: alert, oriented x 3, cooperative, sensation nml, No motor deficits Skin Exam: normal color, warm, dry, No rash, No petechiae SpO2 Interpretation: normal O2 Delivery: Room Air Procedures - Splinting Location of Splint: Left, Wrist Type of Splint: Orthoglass Short Arm Splint Splint Applied By: ED Nurse Pre-Proc Neuro Vasc Exam: normal Post-Proc Neuro Vasc Exam: neurovascular intact Progress: Patient tolerated well - Radiology Exams Left Wrist X-ray Interpretation: Interpreted by me, Displaced Fracture (distal radius Fr), Other Ordered Tests: Active Orders 24 hr Category Date Time Status HAND (MINIMUM 3 VIEWS) Stat Exams 01/06/19 20:15 Taken Medication Summary Discontinued Medications Generic Name Dose Route Start Last Admin Trade Name Freq PRN Reason Stop Dose Admin Morphine Sulfate 4 mg 01/06/19 20:22 01/06/19 20:35 Morphine Sulfate 4 Mg Inj IM 01/06/19 20:23 4 mg STAT ONE Administration Morphine Sulfate Confirm 01/06/19 20:35 Morphine Sulfate 4 Mg Inj Administered 01/06/19 20:36 Dose 4 mg .ROUTE .STK-MED ONE Ondansetron HCl 4 mg 01/06/19 20:22 01/06/19 20:36 Zofran Odt 4 Mg PO 01/06/19 20:23 4 mg STAT ONE Administration Ondansetron HCl Confirm 01/06/19 20:35 Zofran Odt 4 Mg Administered 01/06/19 20:36 Dose 4 mg .ROUTE .STK-MED ONE - Progress Progress: improved Counseled pt/family regarding: diagnosis, need for follow-up (patient to follow with ortho as soon as possible) - Departure Departure Disposition: Home Clinical Impression: Colles' fracture of left radius Qualifiers: Encounter type: initial encounter Fracture type: closed Qualified Code(s): S52.532A - Colles' fracture of left radius, initial encounter for closed fracture Condition: Stable Critical Care Time: No Referrals: IPNKY STRAUSS DO [Primary Care Provider] - 01/07/19 Instructions: Wrist Fracture Additional Instructions: See Ortho as soon as possible, continue home medication including the pain medications. Plan of Treatment: See Ortho LESLIE
[2019-01-06] MEDS ORDERED: ZOFRAN ODT 4 MG PO ONE (20:22)
[2019-01-06] MEDS ORDERED: MORPHINE SULFATE 4 MG INJ IM ONE (20:22)
[2019-01-06] MEDS ORDERED: ZOFRAN ODT 4 MG ONE (20:35)
[2019-01-06] MEDS ORDERED: MORPHINE SULFATE 4 MG INJ ONE (20:35)
[2019-01-06 21:32] VITALS: BP 144/80; PULSE 64; O2SAT 92
--- NOTE | 2019-01-06 22:53 | XRAY ---
Indication: Pain following fall. Comparison: None 3 views of the left hand demonstrates displaced comminuted fracture distal radius with intra-articular extension, mildly displaced ulnar styloid fracture, and soft tissue swelling. Elsewhere osteopenia, mild degenerative changes all IP joints, and mild degenerative changes base 1st metacarpal.
== END 2019-01-06 21:32 | disposition home or self-care (01) ==
LOC: ED 20:00
DX: S52.532A Colles' fracture of left radius, initial encounter for closed fracture (principal); W18.30XA Fall on same level, unspecified, initial encounter; I25.10 Atherosclerotic heart disease of native coronary artery without angina pectoris; E78.00 Pure hypercholesterolemia, unspecified; I10 Essential (primary) hypertension
CPT/HCPCS: 73130; 96372; 99284; J2270; Q0162

== ENCOUNTER 2020-06-27 03:28 | Emergency (ER) | payer MEDICARE ==
[2020-06-27 03:35] VITALS: O2SAT 100
[2020-06-27 04:08] LABS: Absolute Neutrophil Ct (ANC) 2.65 (1.4-6.9); BASOPHIL % 0.3 % (0.0-0.4); Basophil (Absolute #) 0.02 (0-0.4); Eosinophil % 3.2 % (0.00-5.0); Eosinophil (Absolute #) 0.22 (0-0.5); Hematocrit 41.9 % (35-47); Hemoglobin 13.4 gm/dl (12.0-16.0); Lymphocyte (Absolute #) 3.03 (1.0-4.6); Lymphocytes % 44.4 % (24.0-44.0); Mean Platelet Volume 9.7 fl (7.5-11.0); Monocyte (Absolute #) 0.91 (0.0-1.3); Monocytes % 13.3 % (0.0-12.0); Neutrophil % 38.8 % (36.0-66.0); Platelet Count 219 K/mm3 (150-450); Red Blood Count 4.19 M/mm3 (4.1-5.4); White Blood Count 6.8 K/mm3 (4.0-10.5)
--- NOTE | 2020-06-27 04:18 | ERPHSYRPT ---
- History of Present Illness Historian: patient Exam Limitations: other (Poor historian) Patient Subjective Stated Complaint: pt c/o feeling jittery, anxious, nervous and sob, pain in the back. Triage Nursing Assessment: pt c/o feeling anxious, jittery, nervous and feels s ob with pain in the low back. Pt on rm air, O2 sats 99-100%. Lungs clear, heart tones reg, abd soft with active bs x4 quad. nontender. Physician History: 75 yo wf w anxiety x3hr's. Pt took 2mg po Ativan before coming to ER. Pt also complains of chest tightness wo radiation and mild dyspnea. Pt denies N/V/fever/cough. Pain rated 7/10. She also complains of chronic lumbar pain. Timing/Duration: other (3hr) Activities at Onset: sleep Quality: tightness Location: substernal Chest Pain Radiation: no radiation Severity of Pain-Max: moderate Severity of Pain-Current: moderate Modifying Factors: Improves With: nothing Associated Symptoms: shortness of breath, back pain, No nausea, No vomiting, No palpitations, No heartburn, No abdominal pain, No cough, No hurts to breathe, No diaphoresis, No chills, No fever, No fatigue, No weakness, No swelling/lump in chest, No syncope, No rash, No headache, No dizziness, No edema Prior Chest Pain/Cardiac Workup: no prior chest pain Nitro Today/Relief: no nitro taken today Aspirin Treatment Today: no aspirin today Allergies/Adverse Reactions: levofloxacin [From Levaquin] Allergy (Severe, Verified 06/27/20 03:47) throat swelling Penicillins Allergy (Intermediate, Verified 06/27/20 03:47) unsure Home Medications: Lorazepam 1 mg PO DAILY 11/22/18 [History] Lorazepam 1 mg [Ativan 1 MG] 1 mg PO DAILY PRN 11/23/18 [History] Hx Tetanus, Diphtheria Vaccination/Date Given: No Hx Influenza Vaccination/Date Given: No Hx Pneumococcal Vaccination/Date Given: Yes Immunizations Up to Date: No Travel Risk - International Travel Have you traveled outside of the country in past 3 weeks: No - Coronavirus Screening Are you exhibiting any of the following symptoms?: No Close contact with a COVID-19 positive Pt in past 14-21 Days: No - Vaccine Status Have you recieved a Covid-19 vaccination: Yes Credit Collections Manager: Moderna - Vaccination Dates Date of 2cond Vaccination (if applicable): 06/01/20 - Review of Systems Constitutional: No Symptoms Eyes: No Symptoms Ears, Nose, & Throat: No Symptoms Respiratory: Dyspnea Cardiac: No Symptoms, Chest Pain Abdominal/Gastrointestinal: No Symptoms Genitourinary Symptoms: No Symptoms Musculoskeletal: No Symptoms Skin: No Symptoms Neurological: No Symptoms Psychological: No Symptoms Endocrine: No Symptoms Hematologic/Lymphatic: No Symptoms - Past Medical History Pertinent Past Medical History: Yes Neurological History: No Pertinent History ENT History: No Pertinent History Cardiac History: Coronary Artery Disease, High Cholesterol, Hypertension Respiratory History: No Pertinent History Endocrine Medical History: No Pertinent History Musculoskeletal History: Fractures GI Medical History: GERD, Hemorrhoids, Other History: No Pertinent History Psycho-Social History: Anxiety, Depression, Panic Disorder Female Reproductive Disorders: No Pertinent History - Past Surgical History Past Surgical History: Yes Neuro Surgical History: No Pertinent History Cardiac: No Pertinent History, Other Respiratory: No Pertinent History Gastrointestinal: Cholecystectomy Genitourinary: No Pertinent History Musculoskeletal: Orthopedic Surgery Female Surgical History: No Pertinent History, Other Other Surgical History: cyst removed on neck - Social History Smoking Status: Never smoker Exposure to second hand smoke: No Drug Use: none Patient Lives Alone: Yes Significant Family History: no pertinent family hx - Nursing Vital Signs Nursing Vital Signs: Initial Vital Signs Temperature 97.8 F 06/27/20 03:29 Pulse Rate 65 06/27/20 03:29 Respiratory Rate 26 H 06/27/20 03:29 Blood Pressure 199/89 06/27/20 03:29 O2 Sat by Pulse Oximetry 100 06/27/20 03:29 Pain Scale Pain Intensity 5 - Physical Exam General Appearance: no apparent distress, anxiety Eye Exam: PERRL/EOMI, eyes nml inspection Ears, Nose, Throat Exam: normal ENT inspection, TMs normal, pharynx normal Neck Exam: normal inspection, non-tender, supple, full range of motion, No meningismus, No mass, No Brudzinski, No Kernig's Respiratory Exam: normal breath sounds, lungs clear, airway intact, No chest tenderness, No respiratory distress Cardiovascular Exam: regular rate/rhythm, normal heart sounds, normal peripheral pulses, No murmur Gastrointestinal/Abdomen Exam: soft, normal bowel sounds, No tenderness Back Exam: normal inspection, normal range of motion Extremity Exam: normal inspection, normal range of motion Neurologic Exam: alert, oriented x 3, cooperative, packaging specialist II-XII nml as tested, normal mood/affect, nml station & gait, sensation nml, No motor deficits, No sensory deficit Skin Exam: normal color, warm Lymphatic Exam: No adenopathy SpO2 Interpretation: normal SpO2: 100 O2 Delivery: Room Air - Course EKG Interpreted by Me: RATE (NSR/R69/Normal QT-QTc/Flipped T waves V2-V6) - Radiology Exams Chest X-ray Interpretation: Interpreted by me (NAD) Ordered Tests: Active Orders 24 hr Category Date Time Status CHEST 1 VIEW (PORTABLE) Stat Exams 06/27/20 03:43 Ordered CBC W DIFF Stat Lab 06/27/20 03:55 Completed CMP Stat Lab 06/27/20 03:55 Completed NT PRO BNP Stat Lab 06/27/20 03:55 Completed TROPONIN Q3H Lab 06/27/20 03:55 Completed Medication Summary Discontinued Medications Generic Name Dose Route Start Last Admin Trade Name Papitoq PRN Reason Stop Dose Admin Ketorolac Tromethamine 15 mg 06/27/20 04:40 06/27/20 04:48 Toradol 30 Mg Injection IV 06/27/20 04:41 15 mg STAT ONE Administration Ketorolac Tromethamine Confirm 06/27/20 04:45 Toradol 30 Mg Injection Administered 06/27/20 04:46 Dose 30 mg .ROUTE .[employer]-MED ONE Lab/Rad Data: Laboratory Result Diagrams 06/27/20 03:55 06/27/20 03:55 Laboratory Results 06/27/20 06/27/20 06/27/20 Range/Units 03:55 03:55 03:55 WBC 6.8 (4.0-10.5) K/mm3 RBC 4.19 (4.1-5.4) M/mm3 Hgb 13.4 (12.0-16.0) gm/dl Hct 41.9 (35-47) % MCV 100.0 (78-100) fl MCH 32.0 (26-32) pg MCHC 32.0 (32-36) g/dl RDW 13.0 (11.5-14.0) % Plt Count 219 (150-450) K/mm3 MPV 9.7 (7.5-11.0) fl Gran % 38.8 (36.0-66.0) % Eos # (Auto) 0.22 (0-0.5) Absolute Lymphs (auto) 3.03 (1.0-4.6) Absolute Monos (auto) 0.91 (0.0-1.3) Lymphocytes % 44.4 H (24.0-44.0) % Monocytes % 13.3 H (0.0-12.0) % Eosinophils % 3.2 (0.00-5.0) % Basophils % 0.3 (0.0-0.4) % Absolute Granulocytes 2.65 (1.4-6.9) Basophils # 0.02 (0-0.4) Sodium 137 (137-145) mmol/L Potassium 3.8 (3.5-5.1) mmol/L Chloride 101 (98-107) mmol/L Carbon Dioxide 25 (22-30) mmol/L Anion Gap 14.0 (5-15) MEQ/L BUN 15 (7-17) mg/dL Creatinine 1.35 H (0.52-1.04) mg/dL Estimated GFR 40.5 ML/MIN Glucose 107 H (74-106) mg/dL Calcium 9.7 (8.4-10.2) mg/dL Total Bilirubin 0.60 (0.2-1.3) mg/dL AST 32 (14-36) U/L ALT 25 (0-35) U/L Alkaline Phosphatase 86 (38-126) U/L Troponin I < 0.012 (0.000-0.034) ng/mL NT-Pro-B Natriuret Pep 127 (0-1800) pg/mL Serum Total Protein 8.2 (6.3-8.2) g/dL Albumin 4.6 (3.5-5.0) g/dL - Progress Progress: improved Progress Note: 06/27/20 04:41 15mg IV Toradol 06/27/20 05:33 Chest pain most likely due to anxiety. As Ativan started to take effect, pt became more placid w abatement of chest pain. Counseled pt/family regarding: lab results, diagnosis, need for follow-up, rad results - Departure Departure Disposition: Home Clinical Impression: Anxiety Condition: Stable Critical Care Time: No Referrals: PINKY REED, [Primary Care Provider] - Instructions: Anxiety, Adult (DC) Additional Instructions: Follow up with Dr. Reed in 1-2 days Return to ER for increasing pain or shortness of breath
[2020-06-27 04:25] LABS: ALBUMIN 4.6 g/dL (3.5-5.0); BILIRUBIN,TOTAL 0.6 mg/dL (0.2-1.3); Calcium 9.7 mg/dL (8.4-10.2); Creatinine 1 1.35 mg/dL (0.52-1.04); EST GLOMERULAR FILTRATION RATE 40.5 ML/MIN; Potassium 3.8 mmol/L (3.5-5.1); Total Protein 8.2 g/dL (6.3-8.2)
[2020-06-27] MEDS ORDERED: TORAdol 30 mg Injection IV ONE (04:40)
[2020-06-27] MEDS ORDERED: TORAdol 30 mg Injection ONE (04:45)
[2020-06-27 05:03] VITALS: BP 141/84; PULSE 62
--- NOTE | 2020-06-27 09:02 | XRAY ---
Indication: Chest pain. Comparison: September 29, 2016. Portable chest again hyperinflated with chronic lung markings. No focal infiltrate, consolidation, or large effusion. Heart not enlarged with enlarging moderate-sized hiatal hernia. Bony thorax intact again with mild osteopenia and minimal degenerative changes. Impression: Continued nonacute chest with chronic features.
== END 2020-06-27 05:00 | disposition home or self-care (01) ==
LOC: ED 03:28
DX: F41.9 Anxiety disorder, unspecified (principal); R06.02 Shortness of breath; M54.9 Dorsalgia, unspecified; R07.89 Other chest pain; M54.5 Low back pain; Z79.899 Other long term (current) drug therapy; I10 Essential (primary) hypertension; E78.00 Pure hypercholesterolemia, unspecified; I25.10 Atherosclerotic heart disease of native coronary artery without angina pectoris
CPT/HCPCS: 36000; 36415; 71045; 80053; 83880; 84484; 85025; 93005; 96374; 99284; J1885

== ENCOUNTER 2020-11-10 23:07 | Emergency (ER) | payer MEDICARE ==
[2020-11-10] MEDS ORDERED: BENADRYL 50 MG/ML IV ONE (23:27)
[2020-11-10] MEDS ORDERED: Reglan 10 MG/2 ML IV ONE (23:27)
[2020-11-10] MEDS ORDERED: TYLENOL 325 MG PO ONE (23:27)
[2020-11-10 23:37] LABS: Absolute Neutrophil Ct (ANC) 4.99 (1.4-6.9); BASOPHIL % 0.3 % (0.0-0.4); Basophil (Absolute #) 0.02 (0-0.4); Eosinophil % 1.5 % (0.00-5.0); Eosinophil (Absolute #) 0.11 (0-0.5); Hematocrit 41.8 % (35-47); Hemoglobin 13.7 gm/dl (12.0-16.0); Lymphocyte (Absolute #) 1.43 (1.0-4.6); Lymphocytes % 19.5 % (24.0-44.0); Mean Cell Volume 96.8 fl (78-100); Mean Corpuscular Hemoglobin 31.7 pg (26-32); Mean Corpuscular Hgb Concent. 32.8 g/dl (32-36); Mean Platelet Volume 9.6 fl (7.5-11.0); Monocyte (Absolute #) 0.78 (0.0-1.3); Monocytes % 10.6 % (0.0-12.0); Neutrophil % 68.1 % (36.0-66.0); Platelet Count 209 K/mm3 (150-450); Red Blood Count 4.32 M/mm3 (4.1-5.4); Red Cell Distribution Width 13.4 % (11.5-14.0); White Blood Count 7.3 K/mm3 (4.0-10.5)
[2020-11-10 23:42] LABS: ALBUMIN 4.5 g/dL (3.5-5.0); ANION GAP 14.3 MEQ/L (5-15); BILIRUBIN,TOTAL 0.7 mg/dL (0.2-1.3); Creatinine 1 1.22 mg/dL (0.52-1.04); EST GLOMERULAR FILTRATION RATE 45.5 ML/MIN; Potassium 3.7 mmol/L (3.5-5.1)
--- NOTE | 2020-11-10 23:50 | ERPHSYRPT ---
- History of Present Illness Time Seen by Provider: 11/10/20 23:09 Source: patient Exam Limitations: no limitations Patient Subjective Stated Complaint: headache and leg aches Triage Nursing Assessment: pt c/o headache this afternoon but got worse at 10pm when she laid down for bed. Pt c/o leg pain x2 days, achiness. Pt appears very anxious, breathing rapidly, panting and shaking all over. Physician History: 75 years old female with history of hypertension, coronary artery disease, hypothyroidism presented in the ER with chief complaint of right-sided headache which started early afternoon, constant mild to moderate initially, some improvement after taking [id number] pain medications and got worse around 10 PM when she will laid for bed. She also reports having some aches and pains all over especially in legs which is common for her with some change in weather. She has generalized shaking and breathing fast, took Ativan prior to arrival as she thought it is probably her anxiety attack coming in. Denies any blurry vision, numbness tingling, focal weakness. No difficulty speech. Denies any chest pain palpitations. Timing/Duration: today, constant, gradual onset, worse Quality: sharpness Head Pain Location: frontal, temporal, parietal Severity of Pain-Max: moderate Severity of Pain-Current: moderate Recent Head Trauma: no recent headache/trauma Associated Symptoms: sinus infection, No confusion, No fatigue, No fever/chills, No flushing, No light-headedness, No loss of consciousness, No nausea/vomiting, No nasal congestion, No nasal drainage, No numbness in legs/feet, No rash, No sweating, No sensitive to light, No speech problems, No stiff neck, No vision changes, No visual disturbance, No weakness Previous symptoms: same symptoms as today Allergies/Adverse Reactions: levofloxacin [From Levaquin] Allergy (Severe, Verified 11/10/20 23:30) throat swelling Penicillins Allergy (Intermediate, Verified 11/10/20 23:30) unsure Home Medications: Lorazepam 1 mg PO DAILY 11/22/18 [History] Lorazepam 1 mg [Ativan 1 MG] 1 mg PO DAILY PRN 11/23/18 [History] Levothyroxine Sodium 25 Mcg [Synthroid 25 Mcg] 25 mcg PO DAILY 11/10/20 [History] Hx Tetanus, Diphtheria Vaccination/Date Given: No Hx Influenza Vaccination/Date Given: No Hx Pneumococcal Vaccination/Date Given: Yes Immunizations Up to Date: No Travel Risk - International Travel Have you traveled outside of the country in past 3 weeks: No - Coronavirus Screening Are you exhibiting any of the following symptoms?: Yes Symptoms: Headaches/Body Aches/Fatigue Close contact with a COVID-19 positive Pt in past 14-21 Days: No - Vaccine Status Have you recieved a Covid-19 vaccination: Yes [employer]: Moderna - Vaccination Dates Date of 2cond Vaccination (if applicable): can't remember - Review of Systems Constitutional: No Symptoms Eyes: No Symptoms Ears, Nose, & Throat: Nose Congestion, Sinus Drainage Respiratory: No Symptoms Cardiac: No Symptoms Abdominal/Gastrointestinal: No Symptoms Genitourinary Symptoms: No Symptoms Musculoskeletal: Myalgias Skin: No Symptoms Neurological: Headache, Tremors, No Dizziness, No Focal Weakness, No Gait Changes, No Lethargy, No Paralysis, No Parasthesia, No Speech Changes, No Tics Psychological: Anxiety Endocrine: No Symptoms Hematologic/Lymphatic: No Symptoms Immunological/Allergic: No Symptoms - Past Medical History Pertinent Past Medical History: Yes Neurological History: No Pertinent History ENT History: No Pertinent History Cardiac History: Coronary Artery Disease, High Cholesterol, Hypertension Respiratory History: No Pertinent History Endocrine Medical History: No Pertinent History Musculoskeletal History: Fractures GI Medical History: GERD, Gallbladder Disease, Hemorrhoids, Other History: No Pertinent History Psycho-Social History: Anxiety, Depression, Panic Disorder Female Reproductive Disorders: No Pertinent History - Past Surgical History Past Surgical History: Yes Neuro Surgical History: No Pertinent History Cardiac: No Pertinent History, Other Respiratory: No Pertinent History Gastrointestinal: Cholecystectomy Genitourinary: No Pertinent History Musculoskeletal: Orthopedic Surgery Female Surgical History: No Pertinent History, Other Other Surgical History: cyst removed on neck. lt wrist - Social History Smoking Status: Never smoker Exposure to second hand smoke: No Drug Use: none Patient Lives Alone: No Significant Family History: no pertinent family hx - Female History Hx Now: No - Nursing Vital Signs Nursing Vital Signs: Initial Vital Signs Temperature 99.7 F 11/10/20 23:07 Pulse Rate 94 H 11/10/20 23:07 Respiratory Rate 20 11/10/20 23:07 Blood Pressure 232/118 11/10/20 23:07 O2 Sat by Pulse Oximetry 97 11/10/20 23:07 Pain Scale Pain Intensity 0 - Physical Exam General Appearance: no apparent distress, alert, anxiety Eye Exam: PERRL/EOMI, eyes nml inspection Ears, Nose, Throat Exam: normal ENT inspection, TMs normal, pharynx normal Neck Exam: normal inspection, non-tender, supple, full range of motion Respiratory Exam: normal breath sounds, lungs clear Cardiovascular Exam: regular rate/rhythm, normal heart sounds Gastrointestinal/Abdominal Exam: soft, normal bowel sounds, No tenderness Back Exam: normal inspection Extremity Exam: normal inspection, normal range of motion Mental Status Exam: alert, oriented x 3, cooperative time study observer Exam: normal hearing, normal speech, PERRL Coordination/Gait Exam: normal finger to nose, normal gait Motor/Sensory Exam: no motor deficit, no sensory deficit, no pronator drift, negative Babinski's sign DTR Exam: bicep (R): 2+, bicep (L): 2+, knee (R): 2+, knee (L): 2+ Skin Exam: normal color SpO2 Interpretation: normal SpO2: 97 O2 Delivery: Room Air Ordered Tests: Active Orders 24 hr Category Date Time Status Barrel Rifler Hook STAT Care 11/10/20 23:28 Active IV Insertion STAT Care 11/10/20 23:27 Active Pulse Oximetry (ED) STAT Care 11/10/20 23:27 Active Re-Check Vital Signs STAT Care 11/10/20 23:27 Active CHEST 1 VIEW (PORTABLE) Stat Exams 11/11/20 00:00 Taken HEAD WITHOUT CONTRAST [CT] Stat Exams 11/11/20 00:58 Taken CBC W DIFF Stat Lab 11/10/20 23:27 Completed CMP Stat Lab 11/10/20 23:39 Completed CULTURE,URINE Stat Lab 11/10/20 23:50 Received TROPONIN Q3H Lab 11/10/20 23:39 Completed UA W/RFX UR CULTURE Stat Lab 11/10/20 23:50 Completed Medication Summary Discontinued Medications Generic Name Dose Route Start Last Admin Trade Name Freq PRN Reason Stop Dose Admin Acetaminophen 975 mg 11/10/20 23:27 11/10/20 23:52 Tylenol 325 Mg PO 11/10/20 23:28 975 mg STAT ONE Administration Acetaminophen Confirm 11/10/20 23:51 Tylenol 325 Mg Administered 11/10/20 23:52 Dose 975 mg .ROUTE .STK-MED ONE Clonidine 0.1 mg 11/11/20 00:46 11/11/20 00:50 Catapres 0.1 Mg PO 11/11/20 00:47 0.1 mg STAT ONE Administration Clonidine Confirm 11/11/20 00:49 Catapres 0.1 Mg Administered 11/11/20 00:50 Dose 0.1 mg .ROUTE .STK-MED ONE Diphenhydramine HCl 25 mg 11/10/20 23:27 11/10/20 23:52 Benadryl 50 Mg/Ml IV 11/10/20 23:28 25 mg STAT ONE Administration Diphenhydramine HCl Confirm 11/10/20 23:51 Benadryl 50 Mg/Ml Administered 11/10/20 23:52 Dose 50 mg .ROUTE .STK-MED ONE Metoclopramide HCl 10 mg 11/10/20 23:27 11/10/20 23:52 Reglan 10 Mg/2 Ml IV 11/10/20 23:28 10 mg STAT ONE Administration Metoclopramide HCl Confirm 11/10/20 23:51 Reglan 10 Mg/2 Ml Administered 11/10/20 23:52 Dose 10 mg .ROUTE .STK-MED ONE Morphine Sulfate 2 mg 11/11/20 00:46 11/11/20 00:50 Morphine Sulfate 2 Mg Inj IV 11/11/20 00:47 2 mg STAT ONE Administration Morphine Sulfate Confirm 11/11/20 00:49 Morphine Sulfate 2 Mg Inj Administered 11/11/20 00:50 Dose 2 mg .ROUTE .STK-MED ONE Nitrofurantoin Macrocrystals 100 mg 11/11/20 02:08 Macrobid 100mg Capsule PO 11/11/20 02:09 STAT ONE Lab/Rad Data: Laboratory Result Diagrams 11/10/20 23:27 11/10/20 23:39 Laboratory Results 11/10/20 11/10/20 11/10/20 Range/Units 23:50 23:39 23:39 WBC (4.0-10.5) K/mm3 RBC (4.1-5.4) M/mm3 Hgb (12.0-16.0) gm/dl Hct (35-47) % MCV (78-100) fl MCH (26-32) pg MCHC (32-36) g/dl RDW (11.5-14.0) % Plt Count (150-450) K/mm3 MPV (7.5-11.0) fl Gran % (36.0-66.0) % Eos # (Auto) (0-0.5) Absolute Lymphs (auto) (1.0-4.6) Absolute Monos (auto) (0.0-1.3) Lymphocytes % (24.0-44.0) % Monocytes % (0.0-12.0) % Eosinophils % (0.00-5.0) % Basophils % (0.0-0.4) % Absolute Granulocytes (1.4-6.9) Basophils # (0-0.4) Sodium 138 (137-145) mmol/L Potassium 3.7 (3.5-5.1) mmol/L Chloride 102 (98-107) mmol/L Carbon Dioxide 26 (22-30) mmol/L Anion Gap 14.3 (5-15) MEQ/L BUN 9 (7-17) mg/dL Creatinine 1.22 H (0.52-1.04) mg/dL Estimated GFR 45.5 ML/MIN Glucose 108 H (74-106) mg/dL Calcium 9.0 (8.4-10.2) mg/dL Total Bilirubin 0.70 (0.2-1.3) mg/dL AST 26 (14-36) U/L ALT 19 (0-35) U/L Alkaline Phosphatase 97 (38-126) U/L Troponin I < 0.012 (0.000-0.034) ng/mL Serum Total Protein 8.0 (6.3-8.2) g/dL Albumin 4.5 (3.5-5.0) g/dL Urine Color YELLOW (YELLOW) Urine Appearance SLIGHTLY CLOUDY (CLEAR) Urine pH 5.0 (5-6) Ur Specific [place] 1.016 (1.005-1.025) Urine Protein 30 (Negative) Urine Ketones NEGATIVE (NEGATIVE) Urine Blood NEGATIVE (0-5) [place]/ul Urine Nitrite NEGATIVE (NEGATIVE) Urine Bilirubin NEGATIVE (NEGATIVE) Urine Urobilinogen NEGATIVE (0-1) mg/dL Ur Leukocyte Esterase SMALL (NEGATIVE) Urine WBC (Auto) 11-15 (0-5) /HPF Urine RBC (Auto) 0-2 (0-2) /HPF U Epithel Cells (Auto) RARE (FEW) /HPF Urine Bacteria (Auto) NONE (NEGATIVE) /HPF Urine Culture Reflexed YES (NO) Urine Glucose NEGATIVE (NEGATIVE) mg/dL 11/10/20 Range/Units 23:27 WBC 7.3 (4.0-10.5) K/mm3 RBC 4.32 (4.1-5.4) M/mm3 Hgb 13.7 (12.0-16.0) gm/dl Hct 41.8 (35-47) % MCV 96.8 (78-100) fl MCH 31.7 (26-32) pg MCHC 32.8 (32-36) g/dl RDW 13.4 (11.5-14.0) % Plt Count 209 (150-450) K/mm3 MPV 9.6 (7.5-11.0) fl Gran % 68.1 H (36.0-66.0) % Eos # (Auto) 0.11 (0-0.5) Absolute Lymphs (auto) 1.43 (1.0-4.6) Absolute Monos (auto) 0.78 (0.0-1.3) Lymphocytes % 19.5 L (24.0-44.0) % Monocytes % 10.6 (0.0-12.0) % Eosinophils % 1.5 (0.00-5.0) % Basophils % 0.3 (0.0-0.4) % Absolute Granulocytes 4.99 (1.4-6.9) Basophils # 0.02 (0-0.4) Sodium (137-145) mmol/L Potassium (3.5-5.1) mmol/L Chloride (98-107) mmol/L Carbon Dioxide (22-30) mmol/L Anion Gap (5-15) MEQ/L BUN (7-17) mg/dL Creatinine (0.52-1.04) mg/dL Estimated GFR ML/MIN Glucose (74-106) mg/dL Calcium (8.4-10.2) mg/dL Total Bilirubin (0.2-1.3) mg/dL AST (14-36) U/L ALT (0-35) U/L Alkaline Phosphatase (38-126) U/L Troponin I (0.000-0.034) ng/mL Serum Total Protein (6.3-8.2) g/dL Albumin (3.5-5.0) g/dL Urine Color (YELLOW) Urine Appearance (CLEAR) Urine pH (5-6) Ur Specific [place] (1.005-1.025) Urine Protein (Negative) Urine Ketones (NEGATIVE) Urine Blood (0-5) Emanuel/ul Urine Nitrite (NEGATIVE) Urine Bilirubin (NEGATIVE) Urine Urobilinogen (0-1) mg/dL Ur Leukocyte Esterase (NEGATIVE) Urine WBC (Auto) (0-5) /HPF Urine RBC (Auto) (0-2) /HPF U Epithel Cells (Auto) (FEW) /HPF Urine Bacteria (Auto) (NEGATIVE) /HPF Urine Culture Reflexed (NO) Urine Glucose (NEGATIVE) mg/dL - Progress Progress: improved Air Movement: good Progress Note: 11/11/20 02:10 Headache improved with migraine cocktail. Blood pressure also improved. Currently headache free. Nonfocal neuro exam. Patient was very anxious on presentation, she is counseled and feeling better. Chest x-ray reviewed by me did not reveal any obvious acute infiltrative process. I have obtained CT head which was negative for any acute intracranial findings. Nonfocal neuro exam throughout stay in the ER. Does have UTI and given Macrobid. Recommended outpatient follow-up. Discussed signs symptoms of worsening needing return to ER which she seems understanding. Stable for discharge. Blood Culture(s) Obtained: No Antibiotics given: Yes Counseled pt/family regarding: lab results, diagnosis, need for follow-up, rad results - Departure Departure Disposition: Home Clinical Impression: Uncontrolled hypertension, Anxiety, Acute UTI Headache Qualifiers: Headache type: unspecified Headache chronicity pattern: acute headache Intractability: not intractable Qualified Code(s): R51.9 - Headache, unspecified Condition: Stable Critical Care Time: No Referrals: PINKY STRAUSS DO [Primary Care Provider] - (In 2 days for reevaluation) Instructions: Headache, Adult (DC), Malignant Hypertension (DC) Additional Instructions: Take low-salt diet. Monitor your blood pressure regularly, keep a log and follow-up with your primary care for reevaluation early next week. Return to ER for intractable headache or if have difficulty controlling blood pressure are numbness tingling weakness or difficulty speech etc. Prescriptions: Nitrofurantoin Macro 100 mg [Macrobid 100MG Capsule] 100 mg PO BID #14 cap
[2020-11-10] MEDS ORDERED: BENADRYL 50 MG/ML ONE (23:51)
[2020-11-10] MEDS ORDERED: TYLENOL 325 MG ONE (23:51)
[2020-11-10] MEDS ORDERED: Reglan 10 MG/2 ML ONE (23:51)
[2020-11-11 00:10] LABS: Appearance SLIGHTLY CLOUDY (CLEAR); Bilirubin NEGATIVE (NEGATIVE); Blood NEGATIVE Ery/ul (0-5); Epithelial Cells RARE /HPF (FEW); Glucose NEGATIVE (NEGATIVE); Ketones NEGATIVE (NEGATIVE); Leukocyte Esterase SMALL (NEGATIVE); Nitrite NEGATIVE (NEGATIVE); Protein,Urine Dip 30 (Negative); RBC 0-2 /HPF (0-2); Specific Gravity 1.016 (1.005-1.025); Urobilinogen NEGATIVE mg/dL (0-1)
[2020-11-11] MEDS ORDERED: Catapres 0.1 MG PO ONE (00:46)
[2020-11-11] MEDS ORDERED: MORPHINE SULFATE 2 MG INJ IV ONE (00:46)
[2020-11-11] MEDS ORDERED: MORPHINE SULFATE 2 MG INJ ONE (00:49)
[2020-11-11] MEDS ORDERED: Catapres 0.1 MG ONE (00:49)
[2020-11-11 02:08] VITALS: BP 115/65; PULSE 79
[2020-11-11] MEDS ORDERED: Macrobid 100MG Capsule PO ONE (02:08)
[2020-11-11] MEDS ORDERED: Macrobid 100MG Capsule ONE (02:09)
[2020-11-11 02:16] VITALS: O2SAT 97
--- NOTE | 2020-11-11 06:57 | XRAY ---
Indication: Hypertension. Comparison: August 23, 2020. Portable chest again hyperinflated with large hiatal hernia and partial intrathoracic stomach left lung base with subsequent left lower lobe compressive atelectasis. Remaining heart and lungs unremarkable. Bony thorax intact again with osteopenia and degenerative changes. No new/acute findings.
--- NOTE | 2020-11-11 06:59 | XRAY ---
Indication: Headache. Hypertension. Multiple contiguous axial images obtained through the head without contrast. Comparison: None Normal appearing brain parenchyma, ventricles, and bony calvarium for patient's age. Visualized paranasal sinuses and mastoid air cells are clear. Impression: Normal CT head without contrast exam. Comment: Preliminary interpretation made by [facility]. No critical discrepancy.
== END 2020-11-11 02:29 | disposition home or self-care (01) ==
LOC: ED 23:07
DX: I10 Essential (primary) hypertension (principal); F41.9 Anxiety disorder, unspecified; N39.0 Urinary tract infection, site not specified
CPT/HCPCS: 36000; 36415; 70450; 71045; 80053; 81001; 84484; 85025; 87086; 93041; 94760; 96374; 96375; 99284; J1200; J2270; A9270-GY

== ENCOUNTER 2020-11-30 15:53 | Emergency (ER) | payer MEDICARE ==
--- NOTE | 2020-11-30 15:56 | ERPHSYRPT ---
- History of Present Illness Time Seen by Provider: 11/30/20 15:56 Historian: patient Exam Limitations: no limitations Physician History: This is a 75-year-old white female patient of Dr. Reed and presents with 3- week history of intermittent diarrhea and bilateral lower quadrant abdominal discomfort. Approximately 3 weeks ago, patient was seen in the emergency dep artment here at [facility] and diagnosed with a urinary tract infection and given antibiotics. She does not recall the name of the antibiotic. However she began having some diarrhea soon after and stopped it on her own. The diarrhea has intermittently persisted. Patient has a history of hypertension, coronary artery disease, hypothyroidism, elevated cholesterol, anxiety and panic disorder issues. She is status post cholecystectomy. She does feel mild weakness generalized. She denies chest pain. She denies shortness of breath. Activities at Onset: none Quality: aching (Mild bilateral lower quadrants) Abdominal Pain Onset Location: RLQ, LLQ Pain Radiation: no radiation Severity of Pain-Max: mild Severity of Pain-Current: mild Modifying Factors: Improves With: nothing Associated Symptoms: weakness (Mild), other (Diarrhea) Previous symptoms: no prior history Allergies/Adverse Reactions: levofloxacin [From Levaquin] Allergy (Severe, Verified 11/10/20 23:30) throat swelling Penicillins Allergy (Intermediate, Verified 11/10/20 23:30) unsure Home Medications: Lorazepam 1 mg PO DAILY 11/22/18 [History] Lorazepam 1 mg [Ativan 1 MG] 1 mg PO DAILY PRN 11/23/18 [History] Levothyroxine Sodium 25 Mcg [Synthroid 25 Mcg] 25 mcg PO DAILY 11/10/20 [History] Hx Tetanus, Diphtheria Vaccination/Date Given: No Hx Influenza Vaccination/Date Given: No Hx Pneumococcal Vaccination/Date Given: Yes Travel Risk - International Travel Have you traveled outside of the country in past 3 weeks: No - Coronavirus Screening Are you exhibiting any of the following symptoms?: No Close contact with a COVID-19 positive Pt in past 14-21 Days: No - Vaccine Status Have you recieved a Covid-19 vaccination: Yes [facility]: Moderna - Vaccination Dates Date of 2cond Vaccination (if applicable): can't remember - Review of Systems Constitutional: Weakness (Mild) Eyes: No Symptoms Ears, Nose, & Throat: No Symptoms Respiratory: No Symptoms Cardiac: No Symptoms Abdominal/Gastrointestinal: Diarrhea Genitourinary Symptoms: No Symptoms Musculoskeletal: No Symptoms Skin: No Symptoms Neurological: No Symptoms Psychological: No Symptoms Endocrine: No Symptoms Hematologic/Lymphatic: No Symptoms Immunological/Allergic: No Symptoms All Other Systems: Reviewed and Negative - Past Medical History Pertinent Past Medical History: Yes Neurological History: No Pertinent History ENT History: No Pertinent History Cardiac History: Coronary Artery Disease, High Cholesterol, Hypertension Respiratory History: No Pertinent History Endocrine Medical History: No Pertinent History Musculoskeletal History: Fractures GI Medical History: GERD, Gallbladder Disease, Hemorrhoids, Other History: No Pertinent History Psycho-Social History: Anxiety, Depression, Panic Disorder Female Reproductive Disorders: No Pertinent History - Past Surgical History Past Surgical History: Yes Neuro Surgical History: No Pertinent History Cardiac: No Pertinent History, Other Respiratory: No Pertinent History Gastrointestinal: Cholecystectomy Genitourinary: No Pertinent History Musculoskeletal: Orthopedic Surgery Female Surgical History: No Pertinent History, Other Other Surgical History: cyst removed on neck. lt wrist - Social History Smoking Status: Never smoker Exposure to second hand smoke: No Drug Use: none Patient Lives Alone: No Significant Family History: no pertinent family hx - Nursing Vital Signs Nursing Vital Signs: Initial Vital Signs Temperature 98.0 F 11/30/20 16:00 Pulse Rate 65 11/30/20 16:00 Respiratory Rate 18 11/30/20 16:00 Blood Pressure 221/99 11/30/20 16:00 O2 Sat by Pulse Oximetry 97 11/30/20 16:00 Pain Scale Pain Intensity 4 - Physical Exam General Appearance: no apparent distress, alert, anxiety Eye Exam: PERRL/EOMI, eyes nml inspection Ears, Nose, Throat Exam: normal ENT inspection, moist mucous membranes Neck Exam: normal inspection, non-tender, supple, full range of motion Respiratory Exam: normal breath sounds, lungs clear, airway intact, No chest tenderness, No respiratory distress Cardiovascular Exam: regular rate/rhythm, normal heart sounds, normal peripheral pulses Gastrointestinal/Abdomen Exam: soft, normal bowel sounds, tenderness (Mild bilateral lower quadrants with palpation.), No guarding, No rebound Pelvic Exam: not done Rectal Exam: not done Back Exam: normal inspection, normal range of motion, No CVA tenderness, No vertebral tenderness Extremity Exam: normal inspection, normal range of motion, pelvis stable Neurologic Exam: alert, oriented x 3, cooperative, client service and consulting manager II-XII nml as tested, normal mood/affect, nml cerebellar function, nml station & gait, sensation nml Skin Exam: normal color, warm, dry Lymphatic Exam: No adenopathy SpO2 Interpretation: normal O2 Delivery: Room Air - Course Nursing assessment & vital signs reviewed: Yes Ordered Tests: Active Orders 24 hr Category Date Time Status IV Insertion STAT Care 11/30/20 16:13 Active ABDOMEN AND PELVIS W/0 CONTRAS [CT] Stat Exams 11/30/20 16:14 Completed AMYLASE Stat Lab 11/30/20 16:30 Completed CBC W DIFF Stat Lab 11/30/20 16:30 Completed CMP Stat Lab 11/30/20 16:30 Completed LIPASE Stat Lab 11/30/20 16:30 Completed Lactic Acid Stat Lab 11/30/20 16:40 Completed UA W/RFX UR CULTURE Stat Lab 11/30/20 16:14 Completed Medication Summary Discontinued Medications Generic Name Dose Route Start Last Admin Trade Name Freq PRN Reason Stop Dose Admin Sodium Chloride 1,000 mls @ 999 mls/hr 11/30/20 16:15 11/30/20 16:37 Sodium Chloride 0.9% 1000 Ml IV 11/30/20 17:15 999 mls/hr .Q1H1M STA Administration Sodium Chloride Confirm 11/30/20 16:36 Sodium Chloride 0.9% 1000 Ml Administered 11/30/20 16:37 Dose 1,000 mls @ ud .ROUTE .STK-MED ONE Lab/Rad Data: Laboratory Result Diagrams 11/30/20 16:30 11/30/20 16:30 Laboratory Results 11/30/20 11/30/20 11/30/20 Range/Units 16:40 16:30 16:30 WBC 5.3 (4.0-10.5) K/mm3 RBC 4.19 (4.1-5.4) M/mm3 Hgb 13.2 (12.0-16.0) gm/dl Hct 39.9 (35-47) % MCV 95.2 (78-100) fl MCH 31.5 (26-32) pg MCHC 33.1 (32-36) g/dl RDW 13.2 (11.5-14.0) % Plt Count 236 (150-450) K/mm3 MPV 9.5 (7.5-11.0) fl Gran % 45.4 (36.0-66.0) % Eos # (Auto) 0.16 (0-0.5) Absolute Lymphs (auto) 2.00 (1.0-4.6) Absolute Monos (auto) 0.72 (0.0-1.3) Lymphocytes % 37.8 (24.0-44.0) % Monocytes % 13.6 H (0.0-12.0) % Eosinophils % 3.0 (0.00-5.0) % Basophils % 0.2 (0.0-0.4) % Absolute Granulocytes 2.40 (1.4-6.9) Basophils # 0.01 (0-0.4) Sodium 140 (137-145) mmol/L Potassium 3.4 L (3.5-5.1) mmol/L Chloride 105 (98-107) mmol/L Carbon Dioxide 25 (22-30) mmol/L Anion Gap 12.7 (5-15) MEQ/L BUN 9 (7-17) mg/dL Creatinine 1.09 H (0.52-1.04) mg/dL Estimated GFR 51.9 ML/MIN Glucose 96 (74-106) mg/dL Lactic Acid 1.3 (0.4-2.0) Calcium 9.0 (8.4-10.2) mg/dL Total Bilirubin 0.70 (0.2-1.3) mg/dL AST 28 (14-36) U/L ALT 19 (0-35) U/L Alkaline Phosphatase 83 (38-126) U/L Serum Total Protein 7.7 (6.3-8.2) g/dL Albumin 4.2 (3.5-5.0) g/dL Amylase 67 (30-110) U/L Lipase 139 (23-300) U/L Urine Color (YELLOW) Urine Appearance (CLEAR) Urine pH (5-6) Ur Specific [place] (1.005-1.025) Urine Protein (Negative) Urine Ketones (NEGATIVE) Urine Blood (0-5) Emanuel/ul Urine Nitrite (NEGATIVE) Urine Bilirubin (NEGATIVE) Urine Urobilinogen (0-1) mg/dL Ur Leukocyte Esterase (NEGATIVE) Urine WBC (Auto) (0-5) /HPF Urine RBC (Auto) (0-2) /HPF U Epithel Cells (Auto) (FEW) /HPF Urine Bacteria (Auto) (NEGATIVE) /HPF Urine Mucus (Auto) (NEGATIVE) /HPF Urine Culture Reflexed (NO) Urine Glucose (NEGATIVE) mg/dL 11/30/20 Range/Units 16:14 WBC (4.0-10.5) K/mm3 RBC (4.1-5.4) M/mm3 Hgb (12.0-16.0) gm/dl Hct (35-47) % MCV (78-100) fl MCH (26-32) pg MCHC (32-36) g/dl RDW (11.5-14.0) % Plt Count (150-450) K/mm3 MPV (7.5-11.0) fl Gran % (36.0-66.0) % Eos # (Auto) (0-0.5) Absolute Lymphs (auto) (1.0-4.6) Absolute Monos (auto) (0.0-1.3) Lymphocytes % (24.0-44.0) % Monocytes % (0.0-12.0) % Eosinophils % (0.00-5.0) % Basophils % (0.0-0.4) % Absolute Granulocytes (1.4-6.9) Basophils # (0-0.4) Sodium (137-145) mmol/L Potassium (3.5-5.1) mmol/L Chloride (98-107) mmol/L Carbon Dioxide (22-30) mmol/L Anion Gap (5-15) MEQ/L BUN (7-17) mg/dL Creatinine (0.52-1.04) mg/dL Estimated GFR ML/MIN Glucose (74-106) mg/dL Lactic Acid (0.4-2.0) Calcium (8.4-10.2) mg/dL Total Bilirubin (0.2-1.3) mg/dL AST (14-36) U/L ALT (0-35) U/L Alkaline Phosphatase (38-126) U/L Serum Total Protein (6.3-8.2) g/dL Albumin (3.5-5.0) g/dL Amylase (30-110) U/L Lipase (23-300) U/L Urine Color YELLOW (YELLOW) Urine Appearance SLIGHTLY CLOUDY (CLEAR) Urine pH 6.0 (5-6) Ur Specific [place] 1.015 (1.005-1.025) Urine Protein NEGATIVE (Negative) Urine Ketones NEGATIVE (NEGATIVE) Urine Blood NEGATIVE (0-5) Emanuel/ul Urine Nitrite NEGATIVE (NEGATIVE) Urine Bilirubin NEGATIVE (NEGATIVE) Urine Urobilinogen NEGATIVE (0-1) mg/dL Ur Leukocyte Esterase SMALL (NEGATIVE) Urine WBC (Auto) 6-10 (0-5) /HPF Urine RBC (Auto) NONE (0-2) /HPF U Epithel Cells (Auto) RARE (FEW) /HPF Urine Bacteria (Auto) RARE (NEGATIVE) /HPF Urine Mucus (Auto) SLIGHT (NEGATIVE) /HPF Urine Culture Reflexed NO (NO) Urine Glucose NEGATIVE (NEGATIVE) mg/dL - Progress Progress: improved, re-examined Progress Note: 11/30/20 17:18 CAT scan of the abdomen and pelvis without contrast shows no acute intra- abdominal or intrapelvic abnormalities Counseled pt/family regarding: lab results, diagnosis, need for follow-up, rad results - Departure Departure Disposition: Home Clinical Impression: Abdominal pain, Diarrhea Condition: Stable Critical Care Time: No Referrals: PINKY REED DO [Primary Care Provider] - Additional Instructions: Drink plenty of fluids. Take your Flagyl antibiotic as prescribed. Follow-up with Dr. Reed's office for further management including referral to gastr oenterologist for colonoscopy if indicated.. Prescriptions: Metronidazole 500 mg [Flagyl 500 MG] 500 mg PO TID #21 tablet
[2020-11-30] MEDS ORDERED: Sodium Chloride 0.9% 1000 ML 1,000 ML IV STA (16:15)
[2020-11-30 16:32] LABS: Appearance SLIGHTLY CLOUDY (CLEAR); Bacteria RARE /HPF (NEGATIVE); Bilirubin NEGATIVE (NEGATIVE); Blood NEGATIVE Ery/ul (0-5); Epithelial Cells RARE /HPF (FEW); Glucose NEGATIVE (NEGATIVE); Ketones NEGATIVE (NEGATIVE); Leukocyte Esterase SMALL (NEGATIVE); Mucus SLIGHT /HPF (NEGATIVE); Nitrite NEGATIVE (NEGATIVE); Protein,Urine Dip NEGATIVE (Negative); Specific Gravity 1.015 (1.005-1.025); Urobilinogen NEGATIVE mg/dL (0-1)
[2020-11-30] MEDS ORDERED: Sodium Chloride 0.9% 1000 ML 1,000 ML ONE (16:36)
[2020-11-30 16:39] LABS: BASOPHIL % 0.2 % (0.0-0.4); Basophil (Absolute #) 0.01 (0-0.4); Eosinophil (Absolute #) 0.16 (0-0.5); Hematocrit 39.9 % (35-47); Hemoglobin 13.2 gm/dl (12.0-16.0); Lymphocytes % 37.8 % (24.0-44.0); Mean Cell Volume 95.2 fl (78-100); Mean Corpuscular Hemoglobin 31.5 pg (26-32); Mean Corpuscular Hgb Concent. 33.1 g/dl (32-36); Mean Platelet Volume 9.5 fl (7.5-11.0); Monocyte (Absolute #) 0.72 (0.0-1.3); Monocytes % 13.6 % (0.0-12.0); Neutrophil % 45.4 % (36.0-66.0); Platelet Count 236 K/mm3 (150-450); Red Blood Count 4.19 M/mm3 (4.1-5.4); Red Cell Distribution Width 13.2 % (11.5-14.0); White Blood Count 5.3 K/mm3 (4.0-10.5)
[2020-11-30 16:53] LABS: ALBUMIN 4.2 g/dL (3.5-5.0); ANION GAP 12.7 MEQ/L (5-15); BILIRUBIN,TOTAL 0.7 mg/dL (0.2-1.3); Creatinine 1 1.09 mg/dL (0.52-1.04); EST GLOMERULAR FILTRATION RATE 51.9 ML/MIN; Potassium 3.4 mmol/L (3.5-5.1); Total Protein 7.7 g/dL (6.3-8.2)
--- NOTE | 2020-11-30 17:04 | XRAY ---
Indication: Cramping, nausea, and diarrhea one month. Multiple contiguous axial images obtained through the abdomen and pelvis without contrast. Comparison: November 23, 2018. Lung bases again demonstrates diffuse scattered fibrosis/scarring. No infiltrate or effusion. Heart now borderline enlarged. Stable large hiatal hernia with partial intrathoracic stomach and subsequent medial left lower lobe compressive atelectasis. Noncontrasted stomach and bowel loops remain nonobstructed with normal appendix and minimal sigmoid diverticulosis. There has been interval cholecystectomy. Stable tiny splenic calcified granulomas and small right renal exophytic cyst. No free fluid/air. Remaining liver, ankle wrist, spleen, adrenal glands, kidneys, ureters, bladder, and uterus are unremarkable for noncontrast exam. Again mild scattered aortoiliac calcifications without AAA. Osseous structures intact again with mild osteopenia. Impression: 1. Stable scattered pulmonary fibrosis/scarring, large hiatal hernia with partial intrathoracic stomach, diverticulosis, small right renal cyst, osteopenia, and old granulomatous disease. 2. Remaining CT abdomen/pelvis without contrast exam is negative.
[2020-11-30] MEDS ORDERED: Flagyl 500 MG PO ONE (17:21)
[2020-11-30] MEDS ORDERED: Flagyl 500 MG ONE (17:25)
[2020-11-30] MEDS ORDERED: VASOTEC I.V. 2.5 MG IV ONE (17:31)
[2020-11-30 18:06] VITALS: O2SAT 98
[2020-11-30 18:25] VITALS: BP 181/86; PULSE 78
== END 2020-11-30 18:23 ==
LOC: ED 15:53
DX: R10.9 Unspecified abdominal pain (principal); R19.7 Diarrhea, unspecified; I10 Essential (primary) hypertension; E78.00 Pure hypercholesterolemia, unspecified; Z79.899 Other long term (current) drug therapy
CPT/HCPCS: 36000; 36415; 74176; 80053; 81001; 82150; 83605; 83690; 85025; 96374; 99284; A9270-GY

== ENCOUNTER 2021-07-17 05:45 | Emergency (ER) | payer MEDICARE ==
--- NOTE | 2021-07-17 06:23 | ERPHSYRPT ---
- History of Present Illness Time Seen by Provider: 07/17/21 06:05 Source: patient, EMS Exam Limitations: no limitations Patient Subjective Stated Complaint: pt states she has had a cough for the last week. states she has been coughing so much tnight that she has not been able to sleep at all. Triage Nursing Assessment: pt alert and oriented, answers questions approp. pt arrive per ambulance and transfers to [facility] with assist of 3. respirations nonlabored. lung sounds clear, diminished on lt. skin warm and dry. Physician History: This is a 76-year-old white female who presents with 1 week history of worsening cough. In the last couple days she is coughed so much that she cannot even sleep at night. She has not had a fever. She has no chest pain. Patient was brought into the emergency department via ambulance service. Patient has a history of hypothyroidism, hypertension, elevated cholesterol, coronary artery disease and anxiety. Her room air oxygen level in the emergency department is 96 to 98%. She has no significant shortness of breath. Timing/Duration: week(s) (1) Cough Quality/Degree: moderate, dry cough Possible Cause: occasional episodes Modifying Factors: Improves With: coughing Associated Symptoms: cough, sore throat, No chest pain/soreness, No muscle aches Allergies/Adverse Reactions: levofloxacin [From Levaquin] Allergy (Severe, Verified 07/17/21 06:00) Tightness of Throat throat swelling Penicillins Allergy (Intermediate, Verified 07/17/21 06:00) unsure Home Medications: Lorazepam 1 mg [Ativan 1 MG] 2 mg PO BID PRN PRN 11/23/18 [History] Levothyroxine Sodium 25 Mcg [Synthroid 25 Mcg] 37.5 mcg PO DAILY 11/10/20 [History] Amlodipine Besylate [Norvasc] 2.5 mg PO DAILY 07/17/21 [History] Atorvastatin Calcium [Lipitor 20MG Tablet] 20 mg PO DAILY 07/17/21 [History] Metoprolol Succinate 100 mg PO DAILY 07/17/21 [History] Hx Tetanus, Diphtheria Vaccination/Date Given: No Hx Influenza Vaccination/Date Given: No Hx Pneumococcal Vaccination/Date Given: Yes Travel Risk - International Travel Have you traveled outside of the country in past 3 weeks: No - Coronavirus Screening Are you exhibiting any of the following symptoms?: Yes Symptoms: Cough: New Onset Close contact with a COVID-19 positive Pt in past 14-21 Days: No - Vaccine Status Have you recieved a Covid-19 vaccination: Yes Physician Relations Manager: Moderna - Vaccination Dates Date of 2cond Vaccination (if applicable): 06/01/20 - Review of Systems Constitutional: No Symptoms Eyes: No Symptoms Ears, Nose, & Throat: No Symptoms Respiratory: Cough Cardiac: No Symptoms Abdominal/Gastrointestinal: No Symptoms Genitourinary Symptoms: No Symptoms Musculoskeletal: No Symptoms Skin: No Symptoms Neurological: No Symptoms Psychological: No Symptoms Endocrine: No Symptoms Hematologic/Lymphatic: No Symptoms Immunological/Allergic: No Symptoms All Other Systems: Reviewed and Negative - Past Medical History Pertinent Past Medical History: Yes Neurological History: No Pertinent History ENT History: No Pertinent History Cardiac History: Coronary Artery Disease, High Cholesterol, Hypertension Respiratory History: No Pertinent History Endocrine Medical History: No Pertinent History Musculoskeletal History: Fractures GI Medical History: GERD, Gallbladder Disease, Hemorrhoids, Other History: No Pertinent History Psycho-Social History: Anxiety, Depression, Panic Disorder Female Reproductive Disorders: No Pertinent History - Past Surgical History Past Surgical History: Yes Neuro Surgical History: No Pertinent History Cardiac: No Pertinent History, Other Respiratory: No Pertinent History Gastrointestinal: Cholecystectomy Genitourinary: No Pertinent History Musculoskeletal: Orthopedic Surgery Female Surgical History: No Pertinent History, Other Other Surgical History: cyst removed on neck. lt wrist - Social History Smoking Status: Never smoker Exposure to second hand smoke: No Drug Use: none Patient Lives Alone: Yes Significant Family History: no pertinent family hx - Nursing Vital Signs Nursing Vital Signs: Initial Vital Signs Temperature 97.8 F 07/17/21 05:49 Pulse Rate 80 07/17/21 05:49 Respiratory Rate 18 07/17/21 05:49 Blood Pressure 171/83 07/17/21 05:49 O2 Sat by Pulse Oximetry 96 07/17/21 05:49 Pain Scale Pain Intensity 0 - Physical Exam General Appearance: no apparent distress, alert, anxiety Eye Exam: PERRL/EOMI, eyes nml inspection Ears, Nose, Throat Exam: normal ENT inspection, moist mucous membranes Neck Exam: normal inspection, non-tender, supple, full range of motion Respiratory Exam: normal breath sounds, lungs clear, airway intact, No chest tenderness, No respiratory distress Cardiovascular Exam: regular rate/rhythm, normal heart sounds, normal peripheral pulses Gastrointestinal/Abdomen Exam: soft, normal bowel sounds, No tenderness Pelvic Exam: not done Rectal Exam: not done Back Exam: normal inspection, normal range of motion, No CVA tenderness, No vertebral tenderness Extremity Exam: normal inspection, normal range of motion, pelvis stable Neurologic Exam: alert, oriented x 3, cooperative, leather toggler II-XII nml as tested, normal mood/affect, nml cerebellar function, nml station & gait, sensation nml Skin Exam: normal color, warm, dry Lymphatic Exam: No adenopathy SpO2 Interpretation: normal SpO2: 96 O2 Delivery: Room Air Ordered Tests: Active Orders 24 hr Category Date Time Status CHEST 1 VIEW (PORTABLE) Stat Exams 07/17/21 06:11 Ordered - Progress Progress: improved Air Movement: good Progress Note: 07/17/21 06:38 Chest x-ray shows a ? Mild right basilar infiltrate versus atelectasis. Blood Culture(s) Obtained: No Antibiotics given: Yes Counseled pt/family regarding: diagnosis, need for follow-up, rad results - Departure Departure Disposition: Home Clinical Impression: Right pulmonary infiltrate on CXR Condition: Stable Critical Care Time: No Referrals: PINKY STRAUSS DO [Primary Care Provider] - Follow up/PCP as directed Additional Instructions: Drink plenty of fluids. Take your medication as prescribed. Follow-up with your primary care physician for further evaluation and management. Prescriptions: Hydrocodone/Acetaminophen [Hydrocodone-Acetamn 7.5-325/15] 10 ml PO Q8H PRN PRN #120 ml MDD 30 ml PRN Reason: Cough Prednisone 10 mg [Deltasone 10 mg] 10 mg PO TID #12 tablet Azithromycin 250 mg [Zithromax 250 MG TABLET] 250 mg PO ZPACK #4 tablet
[2021-07-17] MEDS ORDERED: Zithromax 250 MG TABLET PO ONE (06:35)
[2021-07-17] MEDS ORDERED: HYDROCODONE-ACETAMIN 2.5-108/5 ML SOLUTION PO STA (06:35)
[2021-07-17] MEDS ORDERED: solu-MEDROL 125 MG, Sterile H2O 10 ml 2 ML IV ONE ×2 (06:35)
[2021-07-17] MEDS ORDERED: Sterile H2O 10 ml IJ ONE (06:44)
[2021-07-17] MEDS ORDERED: Zithromax 250 MG TABLET ONE (06:44)
[2021-07-17] MEDS ORDERED: HYDROCODONE-ACETAMIN 2.5-108/5 ML SOLUTION ONE (06:44)
[2021-07-17] MEDS ORDERED: solu-MEDROL ONE (06:45)
[2021-07-17 07:14] VITALS: BP 162/79; PULSE 84; O2SAT 97
--- NOTE | 2021-07-17 08:57 | XRAY ---
Indication: Cough. Bronchitis. Comparison: May 31, 2021. Portable apical lordotic chest again hyperinflated with new mild right base infiltrate versus atelectasis without consolidation/large effusion. Heart not enlarged again with large hiatal hernia. Bony thorax intact again with osteopenia and degenerative changes.
== END 2021-07-17 07:23 | disposition home or self-care (01) ==
LOC: ED 05:45
DX: R91.8 Other nonspecific abnormal finding of lung field (principal); R05.1 Acute cough; J02.9 Acute pharyngitis, unspecified; I10 Essential (primary) hypertension; E78.5 Hyperlipidemia, unspecified; Z79.891 Long term (current) use of opiate analgesic; Z79.52 Long term (current) use of systemic steroids; Z79.899 Other long term (current) drug therapy
CPT/HCPCS: 36000; 71045; 96374; 99284; J2930; A9270-GY

== ENCOUNTER 2024-01-22 09:22 | Day surgery (SDC) | payer MEDICARE ==
[2011-11-19 19:32] VITALS: BP 150/80
[2024-01-22] MEDS ORDERED: Xylocaine-Mpf 2% 5 Ml Vial IJ ONE (09:23)
[2024-01-22] MEDS ORDERED: DIPRIVAN 200 MG/20 ML IV ONE (11:02)
--- NOTE | 2024-01-22 12:21 | XRAY ---
8 seconds of fluoroscopy was used in surgery for a bilateral L4-S1 MBB.
--- NOTE | 2024-01-22 12:21 | XRAY ---
Indication: Bilateral L4-S1 MBB. Intraoperative fluoroscopy provided for 8 seconds. Single digital spot image submitted for interpretation demonstrates posterior needle tips projecting over the expected left and right L4-S1 nerve roots. Correlate with intraoperative findings/report.
== END 2024-01-22 11:35 | disposition home or self-care (01) ==
LOC: SDC-PAIN 09:22
PROVIDERS: ATTEND Psychiatry & Neurology Pain Medicine
DX: M47.816 Spondylosis without myelopathy or radiculopathy, lumbar region (principal)
CPT/HCPCS: 64493; 64494; 72020; 77002; J2704

== ENCOUNTER 2024-03-04 14:39 | Day surgery (SDC) | payer MEDICARE ==
[2011-11-19 19:32] VITALS: BP 150/80
[2024-03-04] MEDS ORDERED: BUPIVACAINE 0.5% VIAL IJ ONE (14:40)
[2024-03-04] MEDS ORDERED: Depo-Medrol 40 MG/ML IM ONE (14:40)
[2024-03-04] MEDS ORDERED: propofoL IV ONE (15:25)
--- NOTE | 2024-03-04 16:30 | XRAY ---
Indication: Bilateral L4-S1 MBB. Intraoperative fluoroscopy provided for 8 seconds. Single digital spot image submitted for interpretation demonstrates posterior needle tips projecting over expected left and right L4-S1 nerve roots. Correlate with intraoperative findings/report.
--- NOTE | 2024-03-05 09:23 | XRAY ---
8 seconds of fluoroscopy was used in surgery for a bilateral L4-S1 MBB.
== END 2024-03-04 16:00 | disposition home or self-care (01) ==
LOC: SDC-PAIN 14:39
PROVIDERS: ATTEND Psychiatry & Neurology Pain Medicine
DX: M47.816 Spondylosis without myelopathy or radiculopathy, lumbar region (principal)
CPT/HCPCS: 64493; 64494; 72020; 77002; J2704

== ENCOUNTER 2024-03-25 12:41 | Day surgery (SDC) | payer MEDICARE ==
[2011-11-19 19:32] VITALS: BP 150/80
[2024-03-25] MEDS ORDERED: LIDOCAINE HCL 1% AMPUL 5 ML IJ ONE (12:42)
[2024-03-25] MEDS ORDERED: Depo-Medrol 40 MG/ML IM ONE (12:42)
[2024-03-25] MEDS ORDERED: BUPIVACAINE 0.5% VIAL IJ ONE (12:42)
[2024-03-25] MEDS ORDERED: Lactated Ringers 500 ML IV ONE (13:11)
[2024-03-25] MEDS ORDERED: propofoL IV ONE (14:11)
--- NOTE | 2024-03-25 15:02 | XRAY ---
Indication: Left L4-S1 RFA. Intraoperative fluoroscopy provided for 18 seconds. 4 digital spot image submitted for interpretation demonstrates posterior needle tips projecting over expected left L4-S1 nerve roots. Correlate with intraoperative findings/report.
--- NOTE | 2024-03-25 15:02 | XRAY ---
18 seconds of fluoroscopy was used in surgery for a left L4-S1 RFA.
== END 2024-03-25 15:00 | disposition home or self-care (01) ==
LOC: SDC-PAIN 12:41
PROVIDERS: ATTEND Psychiatry & Neurology Pain Medicine
DX: M47.816 Spondylosis without myelopathy or radiculopathy, lumbar region (principal)
CPT/HCPCS: 64635; 64636; 72100; 77002; 99100; J2704

== ENCOUNTER 2024-03-31 14:41 | Day surgery (SDC) | payer MEDICARE ==
[2011-11-19 19:32] VITALS: BP 150/80
[2024-03-31] MEDS ORDERED: BUPIVACAINE 0.5% VIAL IJ ONE (14:42)
[2024-03-31] MEDS ORDERED: methylPREDNISolone acetate IM ONE (14:42)
[2024-03-31] MEDS ORDERED: LIDOCAINE HCL 1% AMPUL 5 ML IJ ONE (14:42)
[2024-03-31] MEDS ORDERED: propofoL IV ONE (16:13)
--- NOTE | 2024-03-31 17:08 | XRAY ---
22 seconds of fluoroscopy was used in surgery for a right L4-S1 RFA.
--- NOTE | 2024-03-31 17:08 | XRAY ---
Indication: Right L4-S1 RFA. Intraoperative fluoroscopy provided for 22 seconds. 6 digital spot image submitted for interpretation posterior needle tips projecting over expected right L4-S1 nerve roots. Correlate with intraoperative findings/report.
== END 2024-03-31 16:56 ==
LOC: SDC-PAIN 14:41
PROVIDERS: ATTEND Psychiatry & Neurology Pain Medicine
DX: M47.816 Spondylosis without myelopathy or radiculopathy, lumbar region (principal)
CPT/HCPCS: 64635; 64636; 72100; 77002; 99100; J1010; J2704

== ENCOUNTER 2024-11-10 19:02 | Emergency (ER) | payer MEDICARE ==
[2024-11-10 19:35] VITALS: TEMP 97.6
[2024-11-10 20:15] LABS: Glucose, Urine Negative (Negative); Protein,Urine Dip 30 (Negative); RBC >100 /HPF (0-5); WBC 21-50 /HPF (0-5)
[2024-11-10] MEDS ORDERED: DECADRON 10MG INJ. ONE (21:31)
--- NOTE | 2024-11-10 21:39 | ERPHSYRPT ---
- History of Present Illness Time Seen by Provider: 11/10/24 21:34 Source: patient Exam Limitations: no limitations Patient Subjective Stated Complaint: pain to left buttock and it goes down my leg Triage Nursing Assessment: Pt brought back to ER 10 via wheelchair. Pt c/o left upper buttock pain that radiates down the left leg since 11/09/24. Left pedal pulse present and strong. Pt has not called her family Dr regarding this issue. Pt has taken IBU and arthritis cream over the last couple days with very minimal relief. Physician History: Patient is an 79-year-old female history of osteoarthritis hypertension hypothyroidism anxiety panic disorder depression presents to our ED for evaluation of low back pain radiating into her left buttock and down her leg. Patient states symptoms started yesterday. Symptoms have been constant. Patient is having difficulty sitting and standing for prolonged periods of time. Patient denies trauma no fever. No history of AAA or aortic aneurysms. Pain described as a burning sensation. Patient has tried [id number] analgesics with no significant relief. She has not had a chance to follow-up with her primary care doctor. Patient otherwise feels well. She voices no other complaints or concerns at this time. Portions of this note were created with voice recognition technology. There may be grammatical, spelling, punctuation or sound alike errors Timing/Duration: yesterday Severity: moderate Modifying Factors: Improves With: ibuprofen Associated Symptoms: denies symptoms Allergies/Adverse Reactions: levofloxacin [From Levaquin] Allergy (Severe, Verified 11/10/24 19:33) Tightness of Throat throat swelling Penicillins Allergy (Intermediate, Verified 11/10/24 19:33) unsure Home Medications: Lorazepam 1 mg [Ativan 1 MG] 2 mg PO BID PRN PRN 11/23/18 [History] Levothyroxine Sodium 25 Mcg [Synthroid 25 Mcg] 37.5 mcg PO DAILY 11/10/20 [History] Amlodipine Besylate [Norvasc] 2.5 mg PO DAILY 07/17/21 [History] Atorvastatin Calcium [Lipitor 20MG Tablet] 20 mg PO DAILY 07/17/21 [History] Metoprolol Succinate 100 mg PO DAILY 07/17/21 [History] Cholecalciferol (Vitamin D3) [Vitamin D3] 2,000 unit PO DAILY 12/26/23 [History] Cyanocobalamin (Vitamin B-12) [Vitamin B-12] 1,000 mcg PO DAILY 12/26/23 [History] Amitriptyline HCl 25 mg [Amitriptyline 25 mg Tablet] 1 tab PO HS 11/10/24 [History] Trazodone HCl 50 mg [Desyrel 50 mg] 1 tab PO HS 11/10/24 [History] Hx Tetanus, Diphtheria Vaccination/Date Given: No (unsure) Hx Influenza Vaccination/Date Given: Yes Hx Pneumococcal Vaccination/Date Given: Yes Travel Risk - International Travel Have you traveled outside of the country in past 3 weeks: No - Emerging Infectious Disease Are you exhibiting symptoms associated with any current EIDs: No - Review of Systems All Other Systems: Reviewed and Negative - Past Medical History Pertinent Past Medical History: Yes Neurological History: No Pertinent History ENT History: No Pertinent History Cardiac History: Hypertension Respiratory History: No Pertinent History Endocrine Medical History: Hypothyroidism Musculoskeletal History: Fractures, Osteoarthritis, Osteoporosis GI Medical History: GERD, Gallbladder Disease, Hemorrhoids, Other History: No Pertinent History Psycho-Social History: Anxiety, Depression, Panic Disorder Female Reproductive Disorders: No Pertinent History - Past Surgical History Past Surgical History: Yes Neuro Surgical History: No Pertinent History Cardiac: No Pertinent History Respiratory: No Pertinent History Gastrointestinal: Cholecystectomy Genitourinary: No Pertinent History Musculoskeletal: Orthopedic Surgery Female Surgical History: No Pertinent History Other Surgical History: abscess removed on neck. lt wrist. nerves "burned" in her lower back Significant Family History: no pertinent family hx - Social History Smoking Status: Never smoker Exposure to second hand smoke: No Drug Use: none - Social Determinants of Health Will the patient participate in the screening: Yes Do you worry about a steady place to live?: No Do you have any problems with any of the following?: No known problems In the past 12 months,have you had to go without utilities?: No Transportation Issues: No Has anyone in your support network made you feel unsafe?: No Have you or anyone in your house had to go w/o enough food: No - Nursing Vital Signs Nursing Vital Signs: Initial Vital Signs Blood Pressure 168/85 11/10/24 19:33 Pain Scale Pain Intensity 7 - Physical Exam General Appearance: no apparent distress, alert Eye Exam: PERRL/EOMI, eyes nml inspection Ears, Nose, Throat Exam: normal ENT inspection, moist mucous membranes Neck Exam: normal inspection, full range of motion Respiratory Exam: normal breath sounds, lungs clear, airway intact, No respiratory distress Cardiovascular Exam: regular rate/rhythm, normal heart sounds, normal peripheral pulses Gastrointestinal/Abdomen Exam: soft, normal bowel sounds, No tenderness, No mass Back Exam: normal inspection, normal range of motion, No CVA tenderness, No vertebral tenderness Extremity Exam: normal inspection, normal range of motion, pelvis stable, other (Positive left lower extremity straight leg raise) Neurologic Exam: alert, oriented x 3, cooperative, normal mood/affect, sensation nml, No motor deficits Skin Exam: normal color, warm, dry, No rash Lymphatic Exam: No adenopathy SpO2 Interpretation: normal SpO2: 95 O2 Delivery: Room Air - Course Nursing assessment & vital signs reviewed: Yes - CT Exams Abdomen/Pelvis CT Interpretation: Tele-radiologist Report (Large hiatal hernia, hepatic steatosis, right renal cortical cyst no fracture or acute process observed) Lumbar Spine CT Interpretation: Tele-radiologist Report (Mild disc bulge, osteopenia, lumbar spondylosis.) Ordered Tests: Active Orders 24 hr Category Date Time Status ABDOMEN AND PELVIS W/0 CONTRAS [CT] Stat Exams 11/10/24 21:25 Completed RECONSTRUCTION [CT] Stat Exams 11/10/24 21:25 Completed CULTURE,URINE Stat Lab 11/10/24 19:48 Received UA W/RFX UR CULTURE Stat Lab 11/10/24 19:48 Completed Medication Summary Discontinued Medications Generic Name Dose Route Start Last Admin Trade Name Freq PRN Reason Stop Dose Admin Dexamethasone Sodium Phosphate 6 mg 11/10/24 21:26 11/10/24 21:40 Dexamethasone Sod Phosphate 10 Mg/Ml PO 11/10/24 21:27 6 mg STAT ONE Administration Dexamethasone Sodium Phosphate Confirm 11/10/24 21:31 Dexamethasone Sod Phosphate 10 Mg/Ml Administered 11/10/24 21:32 Dose 10 mg .ROUTE .[facility] Lab/Rad Data: Laboratory Results 11/10/24 Range/Units 19:48 Urine Color Yellow (Yellow) Urine Appearance Clear (Clear) Urine pH 7.0 (4.6-8.0) Ur Specific [place] 1.015 (1.005-1.030) Urine Protein 30 (Negative) Urine Glucose (UA) Negative (Negative) mg/dL Urine Ketones Negative (Negative) Urine Blood Large A (Negative) Urine Nitrite Negative (Negative) Urine Bilirubin Negative (Negative) Urine Urobilinogen 1.0 A (0.2) mg/dL Ur Leukocyte Esterase Small A (Negative) U Hyaline Cast (Auto) NONE SEEN (0-2) /LPF Urine Microscopic RBC >100 A (0-5) /HPF Urine Microscopic WBC 21-50 A (0-5) /HPF Ur Epithelial Cells Rare (None Seen) /HPF Urine Bacteria None Seen (None Seen) /HPF Urine Culture Reflexed YES (NO) - Progress Progress: improved Progress Note: Patient is an 79-year-old female history of osteoarthritis hypertension hypothyroidism anxiety panic disorder depression presents to our ED for evaluation of low back pain radiating into her left buttock and down her leg. Physical exam reveals positive left straight leg raise. Some tenderness of the lumbar spine. CT abdomen pelvis completed to assess aorta. Aorta normal in caliber. CT lumbar spine reveals mild disc bulge osteopenia lumbar spondylosis. Patient received a dose of Decadron in our ED. Pain significantly improved. UA significant for UTI. Patient received a dose of Macrobid in our ED. A prescription for Macrobid forwarded to patient's pharmacy. Patient received long-acting steroids that seemed to help her pain. Patient may supplement [id number] analgesics for pain control. Patient advised to follow-up with her primary care doctor within 48 hours for reevaluation. She agrees to do so. She voices no other complaints or concerns at this time. Portions of this note were created with voice recognition technology. There may be grammatical, spelling, punctuation or sound alike errors Differential diagnosis is lumbosacral strain, sciatica, aortic dissection, spondylosis I considered administering Toradol for additional pain control however patient has chronic renal disease which is a relative contraindication to an anti- inflammatory NSAID/Toradol History obtained from patient. Complexity of problems addressed is moderate acute complicated. No critical care time. Complexity of data reviewed and analyzed is moderate. Test ordered test reviewed results analyzed and correlated clinically with history and physical exam. Risk of complication and or risk of morbidity/mortality of patient management is low. Vital stable. Time spent to discharge patient is approximately 10 minutes. Plan of care established for shared decision making. No social determinants of health present to impede follow-up. Portions of this note were created with voice recognition technology. There may be grammatical, spelling, punctuation or sound alike errors 11/11/24 00:11 Counseled pt/family regarding: diagnosis, need for follow-up, rad results - Departure Departure Disposition: Home Clinical Impression: Mild disc bulge lumbar spine, Osteopenia, Lumbar spondylosis, Sciatica, Large hiatal hernia, Hepatic steatosis, Right renal cortical cyst, UTI (urinary tract infection) Condition: Stable Critical Care Time: No Referrals: NATE SCHWARTZ DO [Primary Care Provider, [facility]] - Follow up/PCP as directed Additional Instructions: Discharge/Care Plan TAHIRA MASCORRO was seen on 11/11/24 in the Emergency Room. The patient was counseled regarding Diagnosis,Lab results, Imaging studies, need for follow up and when to return to the Emergency Room. Prescriptions given: Discharge Note I have spoken with the patient and/or caregivers. I have explained the patient's condition, diagnosis and treatment plan based on the information available to me at this time. I have answered the patient's and/or caregiver's questions and addressed any concerns. The patient and/or caregivers have as good understanding of the patient's diagnosis, condition and treatment plan as can be expected at this point. The vital signs have been stable. The patient's condition is stable and appropriate for discharge from the emergency department. The patient will pursue further outpatient evaluation with the primary care physician or other designated or consulting physician as outlined in the discharge instructions. The patient and/or caregivers are agreeable to this plan of care and follow-up instructions have been explained in detail. The patient and/or caregivers have received these instruction. The patient/and or caregivers are aware that any significant change in condition or worsening of symptoms should prompt an immediate return to this or the closest emergency department or call 911. Prescriptions: Nitrofurantoin Macro 100 mg [Macrobid 100MG Capsule] 100 mg PO BID 7 Days #14 cap
[2024-11-10] MEDS: DECADRON 10MG INJ. PO ONE (21:40)
--- NOTE | 2024-11-10 23:14 | XRAY ---
CLINICAL HISTORY: LEG/BACK PAIN COMPARISON: None. TECHNIQUE: Multiple contiguous axial images were obtained through the lumbar spine without IV contrast. Sagittal and coronal reformatted images were obtained from the axial data. The CT scan was performed according to ALARA (as low as reasonably achievable). FINDINGS: Diffuse osteopenia is noted. There is loss of lumbar lordosis, which suggests the possibility of muscle spasm or a positional change. Degenerative changes involving the lumbar spine are present in the form of multilevel marginal osteophytes, disc space reduction, and facetal arthrosis. The lumbar vertebral bodies are maintained in height and alignment. No vertebral destructive changes are seen. T11-T12: Evaluated on sagittal images only. No disc bulge, canal stenosis, or neuroforaminal narrowing is present. Subarticular recesses are patent. T12-L1: Evaluated on sagittal images only. No disc bulge, canal stenosis, or neuroforaminal narrowing is present. Subarticular recesses are patent. L1-L2: No disc bulge, canal stenosis, or neuroforaminal narrowing is present. Subarticular recesses are patent. L2-L3: There is a minimal disc bulge without canal stenosis or neuroforaminal narrowing. Subarticular recesses are patent. L3-L4: There is a mild disc bulge without canal stenosis or neuroforaminal narrowing. Subarticular recesses are patent. L4-L5: No disc bulge, canal stenosis, or neuroforaminal narrowing is present. Subarticular recesses are patent. L5-S1: No disc bulge, canal stenosis, or neuroforaminal narrowing is present. Subarticular recesses are patent. The paravertebral soft tissues are unremarkable. IMPRESSION: Diffuse osteopenia. Mild lumbar spondylosis. No fracture or dislocation. Electronically Signed by: Nixon Hardwick MD. (11/10/2024 23:13:56 EDT)
--- NOTE | 2024-11-10 23:26 | XRAY ---
CLINICAL HISTORY: LEG / BACK PAIN COMPARISON: None. TECHNIQUE: Contiguous axial images were obtained from the level of the diaphragm to the pubic symphysis without intravenous or oral contrast. Coronal and sagittal reconstructions were likewise performed and indicated to increase the sensitivity for detecting clinically relevant pathology. The CT scan was performed according to ALARA (as low as reasonably achievable). FINDINGS: Multiple atelectatic bands are noted involving the bilateral lung bases. Evaluation of the abdominal and pelvic visceral organs is limited without intravenous contrast. Large sliding hiatal hernia. Hepatic steatosis. Multiple calcified splenic granulomas. The unenhanced spleen, pancreas, and adrenal glands are grossly unremarkable. The gallbladder has been surgically removed. The kidneys are normal in size and attenuation without obvious calcification. There is no hydronephrosis or perinephric stranding. A small cortical cyst is noted in the right kidney. The ureters are normal in caliber. No adenopathy or fluid collections are seen. No evidence of focal or diffuse bowel wall thickening or evidence of bowel obstruction is seen. No imaging evidence of appendicitis. The aorta is normal in caliber. The urinary bladder is normal in contour. The pelvic viscera are grossly unremarkable. No aggressive-appearing osseous lesions are identified. Diffuse atherosclerotic calcification is noted involving the aorta and iliac arteries. IMPRESSION: Large sliding hiatal hernia. Hepatic steatosis. Multiple calcified splenic granulomas. No acute intra-abdominal abnormality seen. Electronically Signed by: Nixon Hardwick MD. (11/10/2024 23:25:42 EDT)
[2024-11-11 00:04] VITALS: O2SAT 95
[2024-11-11] MEDS: Macrobid 100MG Capsule PO ONE (00:09)
[2024-11-11] MEDS ORDERED: Macrobid 100MG Capsule ONE (00:09)
[2024-11-11 00:27] VITALS: BP 174/96; PULSE 78; RESP 17
== END 2024-11-11 00:29 | disposition home or self-care (01) ==
LOC: ED 19:02
DX: M51.369 Other intervertebral disc degeneration, lumbar region without mention of lumbar back pain or lower extremity pain (principal); M85.80 Other specified disorders of bone density and structure, unspecified site; M47.816 Spondylosis without myelopathy or radiculopathy, lumbar region; M54.30 Sciatica, unspecified side; K44.9 Diaphragmatic hernia without obstruction or gangrene; K76.0 Fatty (change of) liver, not elsewhere classified; N28.1 Cyst of kidney, acquired; N39.0 Urinary tract infection, site not specified; I10 Essential (primary) hypertension; Z79.899 Other long term (current) drug therapy

== ENCOUNTER 2024-11-13 15:09 | Observation (INO) | payer MEDICARE ==
[2024-11-13 15:50] LABS: BASOPHIL % 0.4 % (0.1-1.2); Basophil (Absolute #) 0.02 x10^3/uL (0.01-0.08); Eosinophil (Absolute #) 0.20 x10^3/uL (0.04-0.36); Hematocrit 38.7 % (34.1-44.9); Hemoglobin 12.4 g/dL (11.2-15.7); IMMATURE GRAN # 0.03 x10^3u/L (0.001-0.031); IMMATURE GRAN % 0.7 % (0.001-0.429); Lymphocyte (Absolute #) 0.68 x10^3/uL (1.18-3.74); Mean Corpuscular Hemoglobin 31.1 pg (25.6-32.2); Mean Corpuscular Hgb Concent. 32.0 g/dL (32.2-35.5); Monocyte (Absolute #) 0.90 x10^3/uL (0.24-0.86); NUCLEATED RBC # 0.00 x10^3u/L (0.00-0.012); NUCLEATED RBC % 0.0 % (0.00-0.2); Platelet Count 146 x10^3/uL (182-369); Red Blood Count 3.99 x10^6/uL (3.93-5.22); White Blood Count 4.5 x10^3/uL (3.98-10.04)
[2024-11-13] MEDS ORDERED: Hydromorphone 1 mg/ml Injection ONE ×2 (15:52→19:04)
[2024-11-13] MEDS: Hydromorphone 1 mg/ml Injection IV ONE ×2 (15:53→19:05)
[2024-11-13 16:03] LABS: Calcium 8.6 mg/dL (8.4-10.2); Carbon Dioxide 25.0 mmol/L (22-30); Creatinine 1 1.54 mg/dL (0.52-1.04); EST GLOMERULAR FILTRATION RATE 33.9 ML/MIN; Glucose 109.0 mg/dL (74-106); Potassium 4.1 mmol/L (3.5-5.1)
--- NOTE | 2024-11-13 17:25 | XRAY ---
CLINICAL HISTORY: fall COMPARISON: No previous studies are available for comparison. TECHNIQUE: CT scan of the cervical spine was performed without the administration of intravenous contrast. Contiguous axial images were obtained from the skull base to the upper thoracic spine. Coronal and sagittal reformatted images were also reviewed. One of the following dose reduction techniques was utilized for this exam: automated exposure control, adjustment of the mA and/or kV according to patient size, and use of iterative reconstruction. FINDINGS: Vertebrae: The vertebral bodies are normal in height and alignment. Diffuse osteopenia. Mild cervical spondylitic changes with tiny anterior osteophytes. No evidence of acute fracture or dislocation. The cortical and trabecular bone patterns are normal. No signs of lytic or sclerotic lesions. Normal configuration of the posterior elements. Intervertebral Discs: C3-C4 and C5-C6 posterior disc bulges are present, indenting the anterior thecal sac. Facet Joints: Multilevel facet joint arthropathy is noted. Neural Foramina: The neural foramina are patent bilaterally at all levels. There is no evidence of foraminal narrowing or nerve root compression. Prevertebral Soft Tissues: The prevertebral soft tissues are normal in thickness, without evidence of mass or abnormal fluid collection. Additional Findings: No other significant findings are noted in the visualized soft tissue structures or bony elements. IMPRESSION: 1. No evidence of acute fracture or dislocation. 2. Diffuse osteopenia. 3. Mild cervical spondylitic changes with multilevel disc bulge. Electronically Signed by: Curry Alvarez MD. (11/13/2024 17:23:53 EDT)
--- NOTE | 2024-11-13 17:27 | XRAY ---
CLINICAL HISTORY: fall COMPARISON: None. TECHNIQUE: Contiguous axial CT images of the chest were acquired without administration of intravenous contrast. Coronal and sagittal reconstructions were obtained. One of the following dose reduction techniques was utilized for this exam: Automated exposure control, adjustment of the mA and/or kV according to patient size, or the use of iterative reconstruction. FINDINGS: Lungs: The lung parenchyma is clear with no evidence of consolidation, collapse, or focal lesions. No pulmonary nodules or masses are identified. No evidence of interstitial lung disease or emphysema. No pleural effusion or pleural thickening. Bilateral subpleural reticulations are present, with bilateral basal atelectatic bands more prominent in the left lower lung lobe, suggesting mild fibroatelectatic changes. Mediastinum: The mediastinum is normal in size and contour. No mediastinal mass or abnormal lymphadenopathy is identified. The heart size is within normal limits. A large sliding hiatus hernia is present. Hilar Structures: The hilar structures appear normal, without enlargement or abnormality. Atherosclerotic changes of the aorta and the coronary arteries are noted. Trachea and Main Bronchi: The trachea and main bronchi are patent without evidence of obstruction or abnormality. Chest Wall: The chest wall is unremarkable, with no evidence of soft tissue or bony abnormalities. Upper Abdomen: Visualized portions of the liver, spleen, adrenal glands, and kidneys are unremarkable. Splenic foci of calcifications are noted. Bones: The visualized osseous structures are normal, with no evidence of acute fracture or lytic/sclerotic lesions. Degenerative changes of the spine are noted. IMPRESSION: 1. No acute cardiopulmonary abnormality. 2. No acute bony injury. 3. Large sliding hiatus hernia.Bilateral mild fibroatelectatic changes. Electronically Signed by: Curry Alvarez MD. (11/13/2024 17:26:39 EDT)
--- NOTE | 2024-11-13 17:31 | XRAY ---
CLINICAL HISTORY: fall COMPARISON: None. TECHNIQUE: Axial non-contrast CT scan of the brain was performed from the skull base to the high parietal region. One of the following dose reduction techniques was utilized for this exam: automated exposure control, adjustment of the mA and/or kV according to patient size, or use of iterative reconstruction. FINDINGS: Brain Parenchyma: Normal attenuation of the cerebral hemispheres, cerebellum, and brainstem. There is no evidence of acute infarct, hemorrhage, or mass effect. There are no abnormal areas of hypoattenuation or hyperattenuation. Ventricular System: There is a prominent ventricular system and extra-axial CSF spaces, suggesting senile changes. There is no evidence of hydrocephalus or ventricular enlargement. Subarachnoid Spaces: Normal sulci and cisterns are seen. There is no evidence of subarachnoid hemorrhage or extra-axial fluid collections. Cerebellum and Brainstem: There are no masses, lesions, or areas of abnormal density. Orbits: Normal appearance of the globes, optic nerves, and extraocular muscles. There is no evidence of orbital masses or abnormal density. Sinuses: The paranasal sinuses are clear. There is no evidence of sinusitis or mucosal thickening. Mastoid Air Cells: The mastoid air cells are clear. There is no evidence of mastoiditis. Skull: Normal skull morphology is noted. IMPRESSION: 1. No acute intracranial abnormality. 2. Mild age-appropriate senile changes. Electronically Signed by: Curry Alvarez MD. (11/13/2024 17:30:36 EDT)
[2024-11-13 17:36] LABS: Glucose, Urine Negative (Negative); Protein,Urine Dip 30 (Negative); RBC 51-100 /HPF (0-5)
--- NOTE | 2024-11-13 17:41 | XRAY ---
CLINICAL HISTORY: fall, left hip pain COMPARISON: 11/10/2024 CT. TECHNIQUE: Non-contrast CT of the abdomen and pelvis was performed, with the following protocol: axial images, and reconstructed coronal and sagittal images. No intravenous contrast was administered. One of the following dose reduction techniques was utilized for this exam: Automated exposure control, adjustment of the mA and/or kV according to patient size, and use of iterative reconstruction. FINDINGS: Abdomen: Liver: Normal in size, shape, and density. No focal lesions, cysts, or masses were identified. Gallbladder and Biliary System: The gallbladder is surgically removed Pancreas: Pancreatic head, body, and tail are visualized and appear normal in size and density. No pancreatic masses or calcifications were noted. Spleen: Normal in size, shape, and density. No splenic lesions or masses were identified. Splenic foci of calcifications are noted Kidneys and Adrenal Glands: Both kidneys are normal in size, shape, and position. Cortical thickness is within normal limits. No renal calculi or hydronephrosis. Adrenal glands are unremarkable. Right renal cyst measuring 16 mm Appendix: The appendix is normal in size without myranda appendiceal fat stranding, and without an appendicolith. No evidence of appendiceal abscess or perforation. Pelvis: Urinary Bladder: Normal in contour and wall thickness. No intraluminal lesions. Uterus: Normal in size and contour. No masses or abnormal thickening. Ovaries: Not well visualized but no gross abnormalities noted. Vagina: Normal in contour and wall thickness. Cervix: No evidence of mass or abnormal thickening. Peritoneal and Retroperitoneal Structures: Minimal pelvic free fluid like physiological No lymphadenopathy was noted. Atherosclerotic calcifications of the abdominal aorta and iliac vessels Bowel: The visualized bowel loops are normal in caliber and appearance. No evidence of bowel obstruction or wall thickening. Bones and Soft Tissues: Pelvic bones and soft tissues are unremarkable. No fractures or abnormal masses were identified. IMPRESSION: No acute intra-abdominal pathology. No detected acute fractures Diffuse hepatic steatosis. Large sliding hiatus hernia Compared to prior study no detected interval changes Electronically Signed by: Curry Alvarez MD. (11/13/2024 17:40:37 EDT)
--- NOTE | 2024-11-13 17:48 | ERPHSYRPT ---
- History of Present Illness Time Seen by Provider: 11/13/24 15:11 Source: patient, EMS Exam Limitations: no limitations Patient Subjective Stated Complaint: c/o fall at home Triage Nursing Assessment: patient brought to ED with c/o fall.patient rates pain 10/10 on left hip. patient stated she was at home trying to go to the bathroom and felt like her leg was giving out and tripped over her feet. patient has a history of sciatic nerve pain, states she hit her head, denies LOC or being on blood thinners, pulses normal in all 4 extremeties, skin w/n/d, gait unassessed, no lower extremity shortening noted at this time, patient doesn't appear to be in any distress at this time. Physician History: Patient is here with fall at home. Patient states that she has left hip sciatica. States that she was trying to go to the bathroom felt like her left leg was giving out. States that she fell. Hit her head. No loss of consciousness, not on any blood thinners. Patient was placed in c-collar via EMS. No other injuries. Patient is taking PO well. Same number of urinations and defecations. The patient has no signs of altered mental status, nuchal rigidity, signs of meningitis. The patient is up-to-date on all vaccinations. Patient's sister is at bedside who helps provide history. Allergies/Adverse Reactions: levofloxacin [From Levaquin] Allergy (Severe, Verified 11/13/24 15:14) Tightness of Throat throat swelling Penicillins Allergy (Intermediate, Verified 11/13/24 15:14) unsure Home Medications: Lorazepam 1 mg [Ativan 1 MG] 2 mg PO BID PRN PRN 11/23/18 [History] Levothyroxine Sodium 25 Mcg [Synthroid 25 Mcg] 37.5 mcg PO DAILY 11/10/20 [History] Amlodipine Besylate [Norvasc] 2.5 mg PO DAILY 07/17/21 [History] Atorvastatin Calcium [Lipitor 20MG Tablet] 20 mg PO DAILY 07/17/21 [History] Metoprolol Succinate 100 mg PO DAILY 07/17/21 [History] Cholecalciferol (Vitamin D3) [Vitamin D3] 2,000 unit PO DAILY 12/26/23 [History] Cyanocobalamin (Vitamin B-12) [Vitamin B-12] 1,000 mcg PO DAILY 12/26/23 [History] Amitriptyline HCl 25 mg [Amitriptyline 25 mg Tablet] 1 tab PO HS 11/10/24 [History] Trazodone HCl 50 mg [Desyrel 50 mg] 1 tab PO HS 11/10/24 [History] Hx Tetanus, Diphtheria Vaccination/Date Given: No (unsure) Hx Influenza Vaccination/Date Given: Yes Hx Pneumococcal Vaccination/Date Given: No Travel Risk - International Travel Have you traveled outside of the country in past 3 weeks: No - Emerging Infectious Disease Are you exhibiting symptoms associated with any current EIDs: No - Past Medical History Pertinent Past Medical History: Yes Neurological History: No Pertinent History ENT History: No Pertinent History Cardiac History: Hypertension Respiratory History: No Pertinent History Endocrine Medical History: Hypothyroidism Musculoskeletal History: Fractures, Osteoarthritis, Osteoporosis GI Medical History: GERD, Gallbladder Disease, Hemorrhoids, Other History: No Pertinent History Psycho-Social History: Anxiety, Depression, Panic Disorder Female Reproductive Disorders: No Pertinent History - Past Surgical History Past Surgical History: Yes Neuro Surgical History: No Pertinent History Cardiac: No Pertinent History Respiratory: No Pertinent History Gastrointestinal: Cholecystectomy Genitourinary: No Pertinent History Musculoskeletal: Orthopedic Surgery Female Surgical History: No Pertinent History Other Surgical History: abscess removed on neck. lt wrist. nerves "burned" in her lower back Significant Family History: no pertinent family hx - Social History Smoking Status: Never smoker Exposure to second hand smoke: No Drug Use: none - Social Determinants of Health Will the patient participate in the screening: Yes Do you worry about a steady place to live?: No Do you have any problems with any of the following?: No known problems In the past 12 months,have you had to go without utilities?: No Transportation Issues: No Has anyone in your support network made you feel unsafe?: No Have you or anyone in your house had to go w/o enough food: No - Nursing Vital Signs Nursing Vital Signs: Initial Vital Signs Temperature 99.8 F 11/13/24 15:15 Pulse Rate 70 11/13/24 15:15 Respiratory Rate 18 11/13/24 15:15 Blood Pressure 157/91 11/13/24 15:15 O2 Sat by Pulse Oximetry 93 L 11/13/24 15:15 Pain Scale Pain Intensity 6 - Physical Exam SpO2: 93 Comments: 11/13/24 17:46 Review of Systems Constitutional: Negative for fever. HENT: Negative for congestion. Respiratory: Negative for shortness of breath. Cardiovascular: Negative for chest pain. Gastrointestinal: Negative for abdominal pain. Genitourinary: Negative for dysuria. Musculoskeletal: Negative for back pain. Skin: Negative for rash. Neurological: Negative for headaches. Psychiatric/Behavioral: Negative for behavioral problems. All other systems reviewed and are negative. Physical Exam Vitals signs and nursing note reviewed. Constitutional: Appearance: Patient is well-developed. HENT: Head: Normocephalic and atraumatic. Eyes: Conjunctiva/sclera: Conjunctivae normal. Neck: Musculoskeletal: Normal range of motion. Trachea: No tracheal deviation. Cardiovascular: Rate and Rhythm: Normal rate. Heart sounds normal. Pulmonary: Effort: Pulmonary effort is normal. No respiratory distress. Abdominal: Palpations: Abdomen is soft. Musculoskeletal: General: No deformity. Skin: General: Skin is warm and dry. Neurological/ Psychiatric: Mental Status: Mental status, behavior, interaction with environment is appropriate for patient's age and condition Motor: Patient lifts arms against gravity. Muscle strength and tone are normal Reflexes: Intact major reflexes Sensory: Light touch sensation intact throughout upper and lower extremities Coordination: Rapid alternating movements are intact. Normal [id number] Gait/Stance: Posture is normal, patient is sitting up in bed with normal strength - Course Nursing assessment & vital signs reviewed: Yes Ordered Tests: Active Orders 24 hr Category Date Time Status EKG-ER Only STAT Care 11/13/24 17:57 Active IV Insertion STAT Care 11/13/24 15:31 Active ABDOMEN AND PELVIS W/0 CONTRAS [CT] Stat Exams 11/13/24 15:32 Completed CERVICAL SPINE WO CONTRAST [CT] Stat Exams 11/13/24 15:33 Completed CHEST WITHOUT CONTRAST [CT] Stat Exams 11/13/24 15:32 Completed HEAD WITHOUT CONTRAST [CT] Stat Exams 11/13/24 15:32 Completed BMP Stat Lab 11/13/24 15:45 Completed CBC W DIFF Stat Lab 11/13/24 15:45 Completed CULTURE,URINE Stat Lab 11/13/24 Ordered CULTURE,URINE Stat Lab 11/13/24 16:11 Received TROPONIN Q4H Lab 11/13/24 18:00 Ordered TROPONIN Q4H Lab 11/13/24 22:00 Ordered UA W/RFX UR CULTURE Stat Lab 11/13/24 16:11 Completed Medication Summary Generic Name Dose Route Start Last Admin Trade Name Loyda PRN Reason Stop Dose Admin Ceftriaxone Sodium 1 gm in 100 mls @ 200 mls/hr 11/14/24 10:00 Rocephin 1 Gm / 100 Ml Nacl IV 12/14/24 09:59 [id number] MARY BETH Discontinued Medications Generic Name Dose Route Start Last Admin Trade Name Loyda PRN Reason Stop Dose Admin Hydromorphone HCl 0.5 mg 11/13/24 15:31 11/13/24 15:53 Hydromorphone 1 Mg/1ml Inj IV 11/13/24 15:32 0.5 mg STAT ONE Administration Hydromorphone HCl Confirm 11/13/24 15:52 Hydromorphone 1 Mg/1ml Inj Administered 11/13/24 15:53 Dose 1 mg .ROUTE .STK-MED ONE Lab/Rad Data: Laboratory Result Diagrams 11/13/24 15:45 11/13/24 15:45 Laboratory Results 11/13/24 11/13/24 11/13/24 Range/Units 16:11 15:45 15:45 WBC 4.5 (3.98-10.04) x10^3/uL RBC 3.99 (3.93-5.22) x10^6/uL Hgb 12.4 (11.2-15.7) g/dL Hct 38.7 (34.1-44.9) % MCV 97.0 H (79.4-94.8) fL MCH 31.1 (25.6-32.2) pg MCHC 32.0 L (32.2-35.5) g/dL RDW 13.2 (11.7-14.4) % Plt Count 146 L (182-369) x10^3/uL MPV 9.3 L (9.4-12.3) fL Gran % 59.3 (34.0-71.1) % Immature Gran % (Auto) 0.7 H (0.001-0.429) % Nucleat RBC Rel Count 0.0 (0.00-0.2) % Eos # (Auto) 0.20 (0.04-0.36) x10^3/uL Immature Gran # (Auto) 0.03 (0.001-0.031) x10^3u/L Absolute Lymphs (auto) 0.68 L (1.18-3.74) x10^3/uL Absolute Monos (auto) 0.90 H (0.24-0.86) x10^3/uL Absolute Nucleated RBC 0.00 (0.00-0.012) x10^3u/L Lymphocytes % 15.1 L (19.3-51.7) % Monocytes % 20.0 H (4.7-12.5) % Eosinophils % 4.5 (0.7-5.8) % Basophils % 0.4 (0.1-1.2) % Absolute Granulocytes 2.66 (1.56-6.13) x10^3/uL Basophils # 0.02 (0.01-0.08) x10^3/uL Sodium 135 (135-145) mmol/L Potassium 4.1 (3.5-5.1) mmol/L Chloride 103 (98-107) mmol/L Carbon Dioxide 25 (22-30) mmol/L Anion Gap 11.1 (5-15) MEQ/L BUN 17 (7-17) mg/dL Creatinine 1.54 H (0.52-1.04) mg/dL Estimated GFR 33.9 ML/MIN Glucose 109 H (74-106) mg/dL Calcium 8.6 (8.4-10.2) mg/dL Urine Color Yellow (Yellow) Urine Appearance Clear (Clear) Urine pH 6.0 (4.6-8.0) Ur Specific [place] 1.015 (1.005-1.030) Urine Protein 30 (Negative) Urine Glucose (UA) Negative (Negative) mg/dL Urine Ketones Trace A (Negative) Urine Blood Large A (Negative) Urine Nitrite Negative (Negative) Urine Bilirubin Negative (Negative) Urine Urobilinogen 1.0 A (0.2) mg/dL Ur Leukocyte Esterase Trace A (Negative) U Hyaline Cast (Auto) NONE SEEN (0-2) /LPF Urine Microscopic RBC 51-100 A (0-5) /HPF Urine Microscopic WBC 6-10 A (0-5) /HPF Ur Epithelial Cells None Seen (None Seen) /HPF Urine Bacteria None Seen (None Seen) /HPF Urine Culture Reflexed YES (NO) - Progress Progress: improved Progress Note: 11/13/24 17:47 Patient is adamant that this was a mechanical fall. She denies any presyncopal feelings, chest pain, shortness of breath. Given this we will obtain basic labs, CT chest abdomen pelvis, CT C-spine, CT head. Reevaluation: Patient's pain is much improved at this point in time. CT scans have returned negative for any acute traumatic abnormalities. Plan to make sure patient is able to ambulate. 11/13/24 18:00 Has not went back in and discussed with patient, family feels that she is more confused. They feel that she is more weak. Although no focal neurological deficits. Reviewing patient's lab patient does appear to have a UTI. Therefore I will send a urine culture. Will start treatment with ceftriaxone. Discussed over the phone with on-call hospitalist, Dr. Morrison. He did accept the patient for admission after a careful discussion. Continue close ER monitoring. Given that she has been admitted I will add on an EKG and troponins given her history of cardiac disease. She will need continued close monitoring on telemetry. Continue close ER monitoring until patient is admitted. Dr. Guevara is taking over care at 6 PM. He will continue to monitor situation closely. Counseled pt/family regarding: lab results, diagnosis, need for follow-up, rad results - Departure Departure Disposition: Observation Clinical Impression: UTI (urinary tract infection), Fall at home Condition: Stable Critical Care Time: No Referrals: NATE SCHWARTZ DO [Primary Care Provider, [facility]] - Follow up/PCP as directed
[2024-11-13] MEDS ORDERED: ROCEPHIN 1 GM / 100 ML NaCl 1 GM/100 ML IVPB IV ONE (18:04)
[2024-11-13] MEDS: ROCEPHIN 1 GM / 100 ML NaCl 1 GM/100 ML IVPB IV SCH (18:05)
[2024-11-13] MEDS ORDERED: TYLENOL 325 MG PO PRN (20:19)
[2024-11-13] MEDS ORDERED: Zofran 4 MG/2 ML VIAL IV PRN (20:19)
[2024-11-13] MEDS ORDERED: NORCO 5/325 MG ONE (21:35)
--- NOTE | 2024-11-13 22:25 | PCM.HP ---
History of Present Illness - Chief Complaint Chief Complaint: UTI Date: 11/13/24 History of Present Illness: The patient is a 79-year-old female with a PMH of sciatica, CKD stage IIIb, hypertension, hyperlipidemia, and hypothyroidism who presents to the emergency room after a fall. Patient reports that over the past 3 to 4 days, she has been experiencing left sciatica pain, and that she was trying to walk to the bathroom earlier tonight when her left leg somewhat gave out due to the pain, causing her to fall, hitting her head against the wall. She denies losing consciousness or sustaining any injuries. She does report dysuria over the past few weeks but denies hematuria. Also reports some suprapubic abdominal discomfort during this time occasionally. Denies experiencing chest discomfort, shortness of breath, fever, chills, nausea, vomiting, diarrhea. Also denies headaches or urinary complaints. Denies any focal weakness, numbness, or tingling. Does report that her left leg is somewhat weaker due to the left sciatica pain. She underwent an extensive evaluation in the emergency room with CT abdomen and pelvis, CT chest, CT head, and CT cervical spine which were all negative for acute abnormalities. Laboratory evaluation revealed a UA with 6-10 WBCs, 51-100 RBCs, large blood, trace ketones, and trace leukocyte esterase. Creatinine was 1.54 (baseline 1.2-1.3), WBC count of 4.5, hemoglobin 12.4, and platelet count 146 with sodium 135, potassium 4.1, and BUN 17. Troponin was less than 0.012. Review of Systems: A complete and thorough review of system was performed and was negative except as stated in the HPI. Physical Examination: General: Well-nourished, in no acute distress. Normal weight. HEENT: Head atruamatic normocephaic, PERRL, no scleral icterus, no oral lesions Cardiovascular: Regular rate and rhythm, S1S2 normal, no murmurs appreciated Respiratory: Clear to auscultation bilaterally, no wheezes, rales, rhonchi Abdomen: Soft, nontender, nondistended, normoactive bowel sounds, no guarding Musculoskeletal: Full range of motion. No obvious swelling or tenderness noted Neurological: Alert and oriented x 3. Strength 5/5 in bilateral upper extremities, strength 4/5 in right lower extremity with strength 3/5 of left lower extremity due to pain, no obvious focal deficits noted Psychiatric: Normal mood, affect, with cohesive thought process Assessment & Plan UTI - Continue patient on ceftriaxone 1 g every 24 hours - Follow-up urine cultures Fall with left-sided sciatica - PT consult - Fall precautions FIDELINA on CKD stage IIIb - Continue with gentle IV hydration with normal saline 50 mL/h Chronic conditions: Hypertension, hyperlipidemia, hypothyroidism - Continue with home meds DVT Prophylaxis: Heparin Subq Code Status: Full Code Medications & Allergies Home Medications: Home Medication List Lansoprazole 30 mg PO DAILY #30 capsule. 09/30/16 [Rx Confirmed 11/13/24] Lisinopril 10 mg [Zestril 10 MG] 10 mg PO DAILY #30 tablet 09/30/16 [Rx Confirmed 11/13/24] Lorazepam 1 mg [Ativan 1 MG] 2 mg PO BID PRN PRN 11/23/18 [History Confirmed 11/13/24] Levothyroxine Sodium 25 Mcg [Synthroid 25 Mcg] 37.5 mcg PO DAILY 11/10/20 [History Confirmed 11/13/24] Amlodipine Besylate [Norvasc] 2.5 mg PO DAILY 07/17/21 [History Confirmed 11/13/24] Atorvastatin Calcium [Lipitor 20MG Tablet] 20 mg PO DAILY 07/17/21 [History Confirmed 11/13/24] Metoprolol Succinate 100 mg PO DAILY 07/17/21 [History Confirmed 11/13/24] Cholecalciferol (Vitamin D3) [Vitamin D3] 2,000 unit PO DAILY 12/26/23 [History Confirmed 11/13/24] Cyanocobalamin (Vitamin B-12) [Vitamin B-12] 1,000 mcg PO DAILY 12/26/23 [History Confirmed 11/13/24] Amitriptyline HCl 25 mg [Amitriptyline 25 mg Tablet] 1 tab PO HS 11/10/24 [History Confirmed 11/13/24] Trazodone HCl 50 mg [Desyrel 50 mg] 1 tab PO HS 11/10/24 [History Confirmed 11/13/24] Allergies/Adverse Reactions: Allergies Allergy/AdvReac Type Severity Reaction Status Date / Time [facility] [place] Allergy Severe Tightness Verified 11/13/24 15:14 of Throat Penicillins Allergy Intermediate Verified 11/13/24 15:14 - Past Medical History Past Medical History: Yes Neurological History: No Pertinent History ENT History: No Pertinent History Cardiac History: Hypertension Respiratory History: No Pertinent History Endocrine Medical History: Hypothyroidism Musculoskelatal History: Fractures, Osteoarthritis, Osteoporosis GI Medical History: GERD, Gallbladder Disease, Hemorrhoids, Other History: No Pertinent History Pyscho-Social History: Anxiety, Depression, Panic Disorder Reproductive Disorders: No Pertinent History - Past Surgical History Past Surgical History: Yes Neuro Surgical History: No Pertinent History Cardiac History: No Pertinent History Respiratory Surgery: No Pertinent History GI Surgical History: Cholecystectomy Genitourinary Surgical Hx: No Pertinent History Musculskeletal Surgical Hx: Orthopedic Surgery Female Surgical History: No Pertinent History Other Surgical History: abscess removed on neck. lt wrist. nerves "burned" in her lower back Significant Family History: no pertinent family hx - Social History Smoking Status: Never smoker Exposure to second hand smoke: No Alcohol: None Drug Use: none - Social Determinants of Health Will the patient participate in the screening: Yes Do you worry about a steady place to live?: No Do you have any problems with any of the following?: No known problems In the past 12 months,have you had to go without utilities?: No Have you or anyone in your house had to go without enough: No Transportation Issues: No Has anyone in your support network made you feel unsafe?: No - Physical Exam Vital Signs: Vital Signs - 24 hr Temp Pulse Resp BP BP Pulse Ox 11/13/24 20:09 84 16 139/74 92 L 11/13/24 19:30 85 18 139/74 94 L 11/13/24 19:00 87 18 158/76 96 11/13/24 18:55 87 18 152/66 96 11/13/24 18:30 157/90 92 L 11/13/24 18:21 92 H 18 168/81 93 L 11/13/24 18:02 93 L 11/13/24 17:30 90 19 145/81 94 L 11/13/24 17:00 91 H 18 150/88 93 L 11/13/24 16:50 93 L 11/13/24 16:40 94 L 11/13/24 16:00 87 16 173/93 92 L 11/13/24 15:30 171/83 97 11/13/24 15:15 99.8 F 70 18 157/91 93 L Results - Labs Lab/Micro Results: Lab Results-Last 24 Hours 11/13/24 11/13/24 11/13/24 Range/Units 15:45 15:45 16:11 WBC 4.5 (3.98-10.04) x10^3/uL RBC 3.99 (3.93-5.22) x10^6/uL Hgb 12.4 (11.2-15.7) g/dL Hct 38.7 (34.1-44.9) % MCV 97.0 H (79.4-94.8) fL MCH 31.1 (25.6-32.2) pg MCHC 32.0 L (32.2-35.5) g/dL RDW 13.2 (11.7-14.4) % Plt Count 146 L (182-369) x10^3/uL MPV 9.3 L (9.4-12.3) fL Gran % 59.3 (34.0-71.1) % Immature Gran % (Auto) 0.7 H (0.001-0.429) % Nucleat RBC Rel Count 0.0 (0.00-0.2) % Eos # (Auto) 0.20 (0.04-0.36) x10^3/uL Immature Gran # (Auto) 0.03 (0.001-0.031) x10^3u/L Absolute Lymphs (auto) 0.68 L (1.18-3.74) x10^3/uL Absolute Monos (auto) 0.90 H (0.24-0.86) x10^3/uL Absolute Nucleated RBC 0.00 (0.00-0.012) x10^3u/L Lymphocytes % 15.1 L (19.3-51.7) % Monocytes % 20.0 H (4.7-12.5) % Eosinophils % 4.5 (0.7-5.8) % Basophils % 0.4 (0.1-1.2) % Absolute Granulocytes 2.66 (1.56-6.13) x10^3/uL Basophils # 0.02 (0.01-0.08) x10^3/uL Sodium 135 (135-145) mmol/L Potassium 4.1 (3.5-5.1) mmol/L Chloride 103 (98-107) mmol/L Carbon Dioxide 25 (22-30) mmol/L Anion Gap 11.1 (5-15) MEQ/L BUN 17 (7-17) mg/dL Creatinine 1.54 H (0.52-1.04) mg/dL Estimated GFR 33.9 ML/MIN Glucose 109 H (74-106) mg/dL Calcium 8.6 (8.4-10.2) mg/dL Troponin I (0.000-0.033) ng/mL Urine Color Yellow (Yellow) Urine Appearance Clear (Clear) Urine pH 6.0 (4.6-8.0) Ur Specific [place] 1.015 (1.005-1.030) Urine Protein 30 (Negative) Urine Glucose (UA) Negative (Negative) mg/dL Urine Ketones Trace A (Negative) Urine Blood Large A (Negative) Urine Nitrite Negative (Negative) Urine Bilirubin Negative (Negative) Urine Urobilinogen 1.0 A (0.2) mg/dL Ur Leukocyte Esterase Trace A (Negative) U Hyaline Cast (Auto) NONE SEEN (0-2) /LPF Urine Microscopic RBC 51-100 A (0-5) /HPF Urine Microscopic WBC 6-10 A (0-5) /HPF Ur Epithelial Cells None Seen (None Seen) /HPF Urine Bacteria None Seen (None Seen) /HPF Urine Culture Reflexed YES (NO) 11/13/24 Range/Units 18:05 WBC (3.98-10.04) x10^3/uL RBC (3.93-5.22) x10^6/uL Hgb (11.2-15.7) g/dL Hct (34.1-44.9) % MCV (79.4-94.8) fL MCH (25.6-32.2) pg MCHC (32.2-35.5) g/dL RDW (11.7-14.4) % Plt Count (182-369) x10^3/uL MPV (9.4-12.3) fL Gran % (34.0-71.1) % Immature Gran % (Auto) (0.001-0.429) % Nucleat RBC Rel Count (0.00-0.2) % Eos # (Auto) (0.04-0.36) x10^3/uL Immature Gran # (Auto) (0.001-0.031) x10^3u/L Absolute Lymphs (auto) (1.18-3.74) x10^3/uL Absolute Monos (auto) (0.24-0.86) x10^3/uL Absolute Nucleated RBC (0.00-0.012) x10^3u/L Lymphocytes % (19.3-51.7) % Monocytes % (4.7-12.5) % Eosinophils % (0.7-5.8) % Basophils % (0.1-1.2) % Absolute Granulocytes (1.56-6.13) x10^3/uL Basophils # (0.01-0.08) x10^3/uL Sodium (135-145) mmol/L Potassium (3.5-5.1) mmol/L Chloride (98-107) mmol/L Carbon Dioxide (22-30) mmol/L Anion Gap (5-15) MEQ/L BUN (7-17) mg/dL Creatinine (0.52-1.04) mg/dL Estimated GFR ML/MIN Glucose (74-106) mg/dL Calcium (8.4-10.2) mg/dL Troponin I < 0.012 (0.000-0.033) ng/mL Urine Color (Yellow) Urine Appearance (Clear) Urine pH (4.6-8.0) Ur Specific [place] (1.005-1.030) Urine Protein (Negative) Urine Glucose (UA) (Negative) mg/dL Urine Ketones (Negative) Urine Blood (Negative) Urine Nitrite (Negative) Urine Bilirubin (Negative) Urine Urobilinogen (0.2) mg/dL Ur Leukocyte Esterase (Negative) U Hyaline Cast (Auto) (0-2) /LPF Urine Microscopic RBC (0-5) /HPF Urine Microscopic WBC (0-5) /HPF Ur Epithelial Cells (None Seen) /HPF Urine Bacteria (None Seen) /HPF Urine Culture Reflexed (NO) - Radiology Impressions Radiology Exams & Impressions: Radiology Procedures Category Date Time Status ABDOMEN AND PELVIS W/0 CONTRAS [CT] Stat Exams 11/13/24 15:32 Completed CERVICAL SPINE WO CONTRAST [CT] Stat Exams 11/13/24 15:33 Completed CHEST WITHOUT CONTRAST [CT] Stat Exams 11/13/24 15:32 Completed HEAD WITHOUT CONTRAST [CT] Stat Exams 11/13/24 15:32 Completed Telemedicine Encounter - Telemedicine Encounter Telemedicine Encounter: "The entirety of this encounter was performed via Telemedicine" This visit was performed using real-time audio and video connection between my location and thepatients locationwith the assistance of a surrogateat the patients location. Written or verbal consent was obtained from the patient/guardian to perform this visit [facility]. Any patient questions regarding the telemedicine interaction were answered.
[2024-11-14] MEDS: ULTRAM 50 MG PO PRN (01:22)
--- NOTE | 2024-11-14 05:18 | PCM.NOTE ---
Date and Time: 11/14/24512 Subjective Assessment: Ms. Dyer is an 79-year-old female with a past medical history significant for sciatica, CKD stage IIIb, hypertension, hyperlipidemia, and hypothyroidism, who presented to the emergency department following a fall. She reports experiencing worsening left-sided sciatica pain over the past 34 days. Earlier tonight, while attempting to walk to the bathroom, her left leg gave out due to pain, resulting in a fall where she struck her head against the wall. She denies loss of consciousness, new neurological deficits, or overt injuries. She does endorse dysuria and intermittent suprapubic discomfort over the past few weeks, though she denies fever, chills, hematuria, chest pain, shortness of breath, nausea, vomiting, diarrhea, or focal weakness beyond that attributed to her sciatica. Upon arrival temp was 99.[address] head demonstrated no acute intracranial abnormality, only mild age-appropriate senile changes. CT chest showed no acute cardiopulmonary or bony abnormality, though it revealed a large sliding hiatal hernia and bilateral mild fibro-atelectatic changes. CT abdomen/pelvis was negative for acute intra-abdominal pathology or fracture, with findings of diffuse hepatic steatosis and a large sliding hiatal hernia, unchanged from prior. CT cervical spine showed no acute fracture or dislocation but did demonstrate diffuse osteopenia and mild cervical spondylitic changes with multilevel disc bulges.Laboratory findings remarkable for creatinine of 1.54 (baseline 1.21.3), BUN 17, sodium 135, potassium 4.1, WBC 4.5, hemoglobin 12.4, and platelets 146. Troponin was negative at <0.012. Urinalysis showed 610 WBCs, 66322 RBCs, large blood, trace ketones, and trace leukocyte esterase, concerning for UTI. Patient given ceftriaxone and pain control in ED: 11/14/24 Objective Data Vital Signs: Vital Signs - 24 hr Temp Pulse Resp BP BP Pulse Ox 11/14/24 04:00 98.4 F 81 20 147/71 95 11/13/24 22:56 99.1 F 83 19 143/67 93 L 11/13/24 20:19 99.0 F 83 16 155/72 95 11/13/24 20:09 84 16 139/74 92 L 11/13/24 19:30 85 18 139/74 94 L 11/13/24 19:00 87 18 158/76 96 11/13/24 18:55 87 18 152/66 96 11/13/24 18:30 157/90 92 L 11/13/24 18:21 92 H 18 168/81 93 L 11/13/24 18:02 93 L 11/13/24 17:30 90 19 145/81 94 L 11/13/24 17:00 91 H 18 150/88 93 L 11/13/24 16:50 93 L 11/13/24 16:40 94 L 11/13/24 16:00 87 16 173/93 92 L 11/13/24 15:30 171/83 97 11/13/24 15:15 99.8 F 70 18 157/91 93 L Pain Assessment - Last Documented Pain Intensity 5 Pain Scale Used 0-10 Pain Scale Intake and Output: Intake & Output 11/11/24 11/12/24 11/13/24 11/14/24 11:59 11:59 11:59 11:59 Intake Total 358 Output Total 200 Balance 158 Weight 71.3 kg Lab Results: Lab Results-Last 24 Hours 11/13/24 11/13/24 11/13/24 Range/Units 15:45 15:45 16:11 WBC 4.5 (3.98-10.04) x10^3/uL RBC 3.99 (3.93-5.22) x10^6/uL Hgb 12.4 (11.2-15.7) g/dL Hct 38.7 (34.1-44.9) % MCV 97.0 H (79.4-94.8) fL MCH 31.1 (25.6-32.2) pg MCHC 32.0 L (32.2-35.5) g/dL RDW 13.2 (11.7-14.4) % Plt Count 146 L (182-369) x10^3/uL MPV 9.3 L (9.4-12.3) fL Gran % 59.3 (34.0-71.1) % Immature Gran % (Auto) 0.7 H (0.001-0.429) % Nucleat RBC Rel Count 0.0 (0.00-0.2) % Eos # (Auto) 0.20 (0.04-0.36) x10^3/uL Immature Gran # (Auto) 0.03 (0.001-0.031) x10^3u/L Absolute Lymphs (auto) 0.68 L (1.18-3.74) x10^3/uL Absolute Monos (auto) 0.90 H (0.24-0.86) x10^3/uL Absolute Nucleated RBC 0.00 (0.00-0.012) x10^3u/L Lymphocytes % 15.1 L (19.3-51.7) % Monocytes % 20.0 H (4.7-12.5) % Eosinophils % 4.5 (0.7-5.8) % Basophils % 0.4 (0.1-1.2) % Absolute Granulocytes 2.66 (1.56-6.13) x10^3/uL Basophils # 0.02 (0.01-0.08) x10^3/uL Sodium 135 (135-145) mmol/L Potassium 4.1 (3.5-5.1) mmol/L Chloride 103 (98-107) mmol/L Carbon Dioxide 25 (22-30) mmol/L Anion Gap 11.1 (5-15) MEQ/L BUN 17 (7-17) mg/dL Creatinine 1.54 H (0.52-1.04) mg/dL Estimated GFR 33.9 ML/MIN Glucose 109 H (74-106) mg/dL Calcium 8.6 (8.4-10.2) mg/dL Troponin I (0.000-0.033) ng/mL Urine Color Yellow (Yellow) Urine Appearance Clear (Clear) Urine pH 6.0 (4.6-8.0) Ur Specific [place] 1.015 (1.005-1.030) Urine Protein 30 (Negative) Urine Glucose (UA) Negative (Negative) mg/dL Urine Ketones Trace A (Negative) Urine Blood Large A (Negative) Urine Nitrite Negative (Negative) Urine Bilirubin Negative (Negative) Urine Urobilinogen 1.0 A (0.2) mg/dL Ur Leukocyte Esterase Trace A (Negative) U Hyaline Cast (Auto) NONE SEEN (0-2) /LPF Urine Microscopic RBC 51-100 A (0-5) /HPF Urine Microscopic WBC 6-10 A (0-5) /HPF Ur Epithelial Cells None Seen (None Seen) /HPF Urine Bacteria None Seen (None Seen) /HPF Urine Culture Reflexed YES (NO) 11/13/24 11/13/24 Range/Units 18:05 22:35 WBC (3.98-10.04) x10^3/uL RBC (3.93-5.22) x10^6/uL Hgb (11.2-15.7) g/dL Hct (34.1-44.9) % MCV (79.4-94.8) fL MCH (25.6-32.2) pg MCHC (32.2-35.5) g/dL RDW (11.7-14.4) % Plt Count (182-369) x10^3/uL MPV (9.4-12.3) fL Gran % (34.0-71.1) % Immature Gran % (Auto) (0.001-0.429) % Nucleat RBC Rel Count (0.00-0.2) % Eos # (Auto) (0.04-0.36) x10^3/uL Immature Gran # (Auto) (0.001-0.031) x10^3u/L Absolute Lymphs (auto) (1.18-3.74) x10^3/uL Absolute Monos (auto) (0.24-0.86) x10^3/uL Absolute Nucleated RBC (0.00-0.012) x10^3u/L Lymphocytes % (19.3-51.7) % Monocytes % (4.7-12.5) % Eosinophils % (0.7-5.8) % Basophils % (0.1-1.2) % Absolute Granulocytes (1.56-6.13) x10^3/uL Basophils # (0.01-0.08) x10^3/uL Sodium (135-145) mmol/L Potassium (3.5-5.1) mmol/L Chloride (98-107) mmol/L Carbon Dioxide (22-30) mmol/L Anion Gap (5-15) MEQ/L BUN (7-17) mg/dL Creatinine (0.52-1.04) mg/dL Estimated GFR ML/MIN Glucose (74-106) mg/dL Calcium (8.4-10.2) mg/dL Troponin I < 0.012 < 0.012 (0.000-0.033) ng/mL Urine Color (Yellow) Urine Appearance (Clear) Urine pH (4.6-8.0) Ur Specific [place] (1.005-1.030) Urine Protein (Negative) Urine Glucose (UA) (Negative) mg/dL Urine Ketones (Negative) Urine Blood (Negative) Urine Nitrite (Negative) Urine Bilirubin (Negative) Urine Urobilinogen (0.2) mg/dL Ur Leukocyte Esterase (Negative) U Hyaline Cast (Auto) (0-2) /LPF Urine Microscopic RBC (0-5) /HPF Urine Microscopic WBC (0-5) /HPF Ur Epithelial Cells (None Seen) /HPF Urine Bacteria (None Seen) /HPF Urine Culture Reflexed (NO) Radiology Exams: Radiology Procedures Category Date Time Status ABDOMEN AND PELVIS W/0 CONTRAS [CT] Stat Exams 11/13/24 15:32 Completed CERVICAL SPINE WO CONTRAST [CT] Stat Exams 11/13/24 15:33 Completed CHEST WITHOUT CONTRAST [CT] Stat Exams 11/13/24 15:32 Completed HEAD WITHOUT CONTRAST [CT] Stat Exams 11/13/24 15:32 Completed Medications: Medications Generic Name Dose Route Start Last Admin Trade Name Freq PRN Reason Stop Dose Admin Acetaminophen 650 mg 11/13/24 20:19 Acetaminophen 325 Mg Tablet PO 12/13/24 20:18 Q4H PRN PRN PAIN, FEVER, HEADACHE Heparin Sodium (Beef Lung) 5,000 unit 11/14/24 10:00 Heparin 5000 Units/0.5 Ml 5,000 Unit/0.5 Ml Syr SQ 12/14/24 09:59 BID MARY BETH Ceftriaxone Sodium 1 gm in 100 mls @ 200 mls/hr 11/14/24 10:00 11/13/24 18:35 Rocephin 1 Gm / 100 Ml Nacl IV 12/14/24 09:59 Infused Q24H10 MARY BETH Infusion Sodium Chloride 1,000 mls @ 50 mls/hr 11/13/24 20:19 11/13/24 22:44 Sodium Chloride 0.9% 1000 Ml IV 12/13/24 20:18 50 mls/hr .Q20H MARY BETH Administration Ondansetron HCl 4 mg 11/13/24 20:19 Ondansetron Hcl 4 Mg/2 Ml Vial IV 12/13/24 20:18 Q6H PRN PRN NAUSEA/VOMITING Tramadol HCl 50 mg 11/14/24 00:56 11/14/24 01:22 Tramadol Hcl 50 Mg Tablet PO 12/14/24 00:55 50 mg QID PRN PRN Administration PAIN Discontinued Medications Generic Name Dose Route Start Last Admin Trade Name Freq PRN Reason Stop Dose Admin Hydrocodone Bitart/Acetaminophen Confirm 11/13/24 21:35 Hydrocodone/Apap 5/325 1 Tab Tablet Administered 11/13/24 21:36 Dose 1 tab .ROUTE .STK-MED ONE Hydromorphone HCl 0.5 mg 11/13/24 15:31 11/13/24 15:53 Hydromorphone 1 Mg/1ml Inj IV 11/13/24 15:32 0.5 mg STAT ONE Administration Hydromorphone HCl Confirm 11/13/24 15:52 Hydromorphone 1 Mg/1ml Inj Administered 11/13/24 15:53 Dose 1 mg .ROUTE .STK-MED ONE Hydromorphone HCl 0.5 mg 11/13/24 19:02 11/13/24 19:05 Hydromorphone 1 Mg/1ml Inj IV 11/13/24 19:03 0.5 mg STAT ONE Administration Hydromorphone HCl Confirm 11/13/24 19:04 Hydromorphone 1 Mg/1ml Inj Administered 11/13/24 19:05 Dose 1 mg .ROUTE .STK-MED ONE Ceftriaxone Sodium Confirm 11/13/24 18:04 Rocephin 1 Gm / 100 Ml Nacl Administered 11/13/24 18:05 Dose 1 gm in 100 mls @ ud IV .STK-MED ONE Assessment/Plan (1) UTI (urinary tract infection) Current Visit: Yes Status: Acute Assessment & Plan: UA positive for WBCs, RBCs, leukocyte esterase; dysuria and suprapubic discomfort continue ceftriaxone Follow up urine culture for sensitivities Monitor for clinical improvement Code(s): N39.0 - URINARY TRACT INFECTION, SITE NOT SPECIFIED (2) Acute renal failure superimposed on chronic kidney disease Current Visit: Yes Status: Acute Assessment & Plan: Creatinine 1.27 and now at baseline 1.21.3 Gentle IV hydration with NS at 50 mL/hr Trend renal function and electrolytes Code(s): N17.9 - ACUTE KIDNEY FAILURE, UNSPECIFIED; N18.9 - CHRONIC KIDNEY DISEASE, UNSPECIFIED (3) Fall at home Current Visit: Yes Status: Acute Assessment & Plan: Likely mechanical, precipitated by pain/leg weakness CT head: no acute intracranial abnormality; mild senile changes CT chest: no acute cardiopulmonary process; large hiatal hernia; mild fibro-atelectasis CT cervical spine: no acute fracture; diffuse osteopenia; mild cervical spondylosis with multilevel disc bulges CT abdomen/pelvis: no acute intra-abdominal pathology; diffuse hepatic steatosis; large sliding hiatal hernia stable from prior Implement fall precautions PT consult for mobility and strengthening- patient considering rehab stay pending PT eval Code(s): W19.XXXA - UNSPECIFIED FALL, INITIAL ENCOUNTER; Y92.009 - UNSP PLACE IN UNSP NON-INSTITUT (PRIVATE) RESIDENCE PLACE (4) HTN (hypertension) Current Visit: Yes Status: Acute Assessment & Plan: Continue home medications Code(s): I10 - ESSENTIAL (PRIMARY) HYPERTENSION (5) HLD (hyperlipidemia) Current Visit: Yes Status: Acute Assessment & Plan: Continue home medications Code(s): E78.5 - HYPERLIPIDEMIA, UNSPECIFIED (6) Hypothyroid Current Visit: Yes Status: Acute Assessment & Plan: Continue home medications VTE: Heparin PPI: protonix Dispo: 1-3days Code status: Full code Plan of care time spent > 30 mins Code(s): E03.9 - HYPOTHYROIDISM, UNSPECIFIED
[2024-11-14 05:53] LABS: Hematocrit 35.1 % (34.1-44.9); Hemoglobin 11.5 g/dL (11.2-15.7); Mean Corpuscular Hemoglobin 31.0 pg (25.6-32.2); Mean Corpuscular Hgb Concent. 32.8 g/dL (32.2-35.5); Platelet Count 144 x10^3/uL (182-369); Red Blood Count 3.71 x10^6/uL (3.93-5.22); White Blood Count 4.1 x10^3/uL (3.98-10.04)
[2024-11-14 06:26] LABS: Calcium 8.1 mg/dL (8.4-10.2); Carbon Dioxide 22.0 mmol/L (22-30); Creatinine 1 1.27 mg/dL (0.52-1.04); EST GLOMERULAR FILTRATION RATE 42.8 ML/MIN; Glucose 113.0 mg/dL (74-106); NT PRO BNPII 419.0 pg/mL (<300); Potassium 3.6 mmol/L (3.5-5.1); SGOT/AST 36.0 U/L (14-36); SGPT/ALT 21.0 U/L (0-35); Total Protein 7.0 g/dL (6.3-8.2)
[2024-11-14 07:19] LABS: Total Cells Counted 100
[2024-11-14] MEDS: HEPARIN 5000 UNITS/0.5 ML (HIGH RISK MED) SQ SCH (10:22)
[2024-11-14] MEDS: VITAMIN D PO SCH (12:55)
[2024-11-14] MEDS: Toprol Xl 50 MG PO SCH (12:56)
[2024-11-14] MEDS: NORVASC 5 MG PO SCH (12:56)
[2024-11-14] MEDS: Protonix 40MG Tablet PO SCH (12:56)
[2024-11-14] MEDS: Zestril 10 MG PO SCH (12:58)
[2024-11-14] MEDS: SYNTHROID 75 MCG PO SCH (12:58)
[2024-11-14] MEDS: ZOCOR 20MG PO SCH (12:59)
[2024-11-14] MEDS: Vitamin B-12 500 MCG PO SCH (12:59)
[2024-11-14] MEDS: NORCO 5/325 MG PO PRN (13:51)
--- NOTE | 2024-11-14 17:12 | XRAY ---
CLINICAL HISTORY: left foot pain COMPARISON: No prior studies are available for comparison. TECHNIQUE: X-ray images of the left foot were obtained in anteroposterior (AP), lateral, and oblique projections. FINDINGS: Bone Structure: Diffuse osteopenia is present. The bone structure is normal and properly aligned. There is no evidence of fracture or dislocation. No osseous lesions or abnormalities are identified. A small plantar calcaneal spur is noted. Joint Spaces: The joint spaces are normal. There is no evidence of joint effusion or subluxation. Soft Tissues: The soft tissues appear normal and unremarkable. There is no soft tissue swelling, calcification, or foreign body noted. Additional Findings: There are no signs of osteoarthritis or lytic or sclerotic lesions. IMPRESSION: 1. There is no evidence of acute fracture or dislocation. 2. Diffuse osteopenia. 3. Small plantar calcaneal spur. Disclaimer: A subtle bone abnormality or fracture may not be readily apparent on X-rays, thus clinical correlation and further imaging including follow-up CT, MRI, or follow-up X-rays are advised as needed. Electronically Signed by: Curry Alvarez MD. (11/14/2024 17:10:05 EDT)
[2024-11-14] MEDS: ROCEPHIN 1 GM / 100 ML NaCl 1 GM/100 ML IVPB IV SCH (18:20)
[2024-11-14] MEDS: AMITRIPTYLINE 25 MG TABLET PO SCH (21:00)
[2024-11-14] MEDS: DESYREL 50 MG PO SCH (21:00)
[2024-11-15] MEDS ORDERED: Narcan 0.4 MG/ML IV PRN (07:37)
[2024-11-15] MEDS: Tums EX 750 MG PO SCH (10:07)
--- NOTE | 2024-11-15 12:40 | PCM.NOTE ---
Date and Time: 11/15/24 1234 Subjective Assessment: An 79-year-old female with a history of sciatica, stage IIIb chronic kidney disease, hypertension, hyperlipidemia, and hypothyroidism presented to the ED on 11/13 after a fall caused by worsening left-sided sciatica pain. She reported her leg gave out while walking to the bathroom, causing her to hit her head against a wall. She denied loss of consciousness, new neurological symptoms, or injury beyond her chronic leg pain. She also endorsed dysuria and suprapubic discomfort but denied other systemic symptoms. Imaging including CT head, chest, abdomen/pelvis, and cervical spine revealed no acute abnormalities, though chronic findings included a large sliding hiatal hernia, osteopenia, and mild spondylosis. Labs showed a transient rise in creatinine (1.54) consistent with mild FIDELINA, which later resolved; urinalysis suggested possible UTI, though urine culture was negative. She was treated with ceftriaxone and supportive care. On 11/15, the patient was alert, eating well, and reported improvement, though she continued to experience left leg weakness and sciatic pain. Steroids were started for symptom management. Gabapentin was avoided due to her fall risk and concurrent use of benzodiazepines and narcotics. Narcan was added to her medication list as a precaution. Her kidney function returned to baseline, IV fluids were discontinued, and her elevated morning blood pressure was managed with medication. She has requested a physical therapy evaluation for possible placement needs. Plans are to monitor her for another day, with likely discharge tomorrow and consideration of home health services or facility placement. - Review of Systems Constitutional: No Fever, No Chills Eyes: No Symptoms Ears, Nose, & Throat: No Symptoms Respiratory: No Cough, No Short Of Breath Cardiac: No Chest Pain, No Edema, No Syncope Abdominal/Gastrointestinal: No Abdominal Pain, No Nausea, No Vomiting, No Diarrhea Genitourinary Symptoms: No Dysuria Musculoskeletal: No Back Pain, No Neck Pain Skin: No Rash Neurological: Parasthesia (left leg sciatic pain), No Dizziness, No Focal Weakness, No Sensory Changes Psychological: No Symptoms Endocrine: No Symptoms Hematologic/Lymphatic: No Symptoms Immunological/Allergic: No Symptoms Objective Exam General Appearance: no apparent distress, alert Neurologic Exam: alert, oriented x 3, cooperative, 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, normal mood/affect, nml cerebellar function, sensation nml, motor weakness (d/t left leg pain), No motor deficits Skin Exam: normal color, warm, dry Eye Exam: PERRL, EOMI, eyes nml inspection Ears, Nose, Throat Exam: normal ENT inspection, pharynx normal, moist mucous membranes Neck Exam: normal inspection, non-tender, supple, full range of motion Respiratory Exam: normal breath sounds, lungs clear, No respiratory distress Cardiovascular Exam: regular rate/rhythm, normal heart sounds Gastrointestinal/Abdomen Exam: soft, No tenderness, No mass Extremity Exam: normal inspection, normal range of motion Back Exam: normal inspection, normal range of motion, No CVA tenderness, No vertebral tenderness Pelvic Exam: deferred Rectal Exam: deferred Objective Data Vital Signs: Vital Signs - 24 hr Temp Pulse Resp BP Pulse Ox 11/15/24 11:47 97.6 F 68 16 143/66 95 11/15/24 07:19 97.7 F 73 16 160/72 95 11/15/24 04:00 97.7 F 76 20 153/68 94 L 11/14/24 23:57 99.3 F 84 18 149/79 94 L 11/14/24 19:34 99.0 F 75 18 127/61 94 L 11/14/24 16:00 98.2 F 76 20 136/69 94 L Pain Assessment - Last Documented Pain Intensity 3 Pain Scale Used 0-10 Pain Scale Intake and Output: Intake & Output 11/13/24 11/14/24 11/15/24 11/16/24 11:59 11:59 11:59 11:59 Intake Total 478 2461 Output Total 295 600 Balance 183 1861 Weight 71.3 kg Radiology Exams: Radiology Procedures Category Date Time Status ABDOMEN AND PELVIS W/0 CONTRAS [CT] Stat Exams 11/13/24 15:32 Completed CERVICAL SPINE WO CONTRAST [CT] Stat Exams 11/13/24 15:33 Completed CHEST WITHOUT CONTRAST [CT] Stat Exams 11/13/24 15:32 Completed FOOT (MINIMUM 3 VIEWS) Stat Exams 11/14/24 15:03 Completed HEAD WITHOUT CONTRAST [CT] Stat Exams 11/13/24 15:32 Completed Medications: Medications Generic Name Dose Route Start Last Admin Trade Name Freq PRN Reason Stop Dose Admin Acetaminophen 650 mg 11/13/24 20:19 Acetaminophen 325 Mg Tablet PO 12/13/24 20:18 Q4H PRN PRN PAIN, FEVER, HEADACHE Hydrocodone Bitart/Acetaminophen 1 tab 11/14/24 12:22 11/15/24 10:07 Hydrocodone/Apap 5/325 1 Tab Tablet PO 11/19/24 12:21 1 tab Q4H PRN PRN Administration PAIN Amitriptyline HCl 25 mg 11/14/24 22:00 11/14/24 21:00 Amitriptyline Hcl 25 Mg Tablet PO 12/14/24 21:59 25 mg HS MARY BETH Administration Amlodipine Besylate 2.5 mg 11/14/24 13:00 11/15/24 10:02 Amlodipine Besylate 5 Mg Tablet PO 12/14/24 12:59 2.5 mg DAILY MARY BETH Administration Calcium Carbonate/Glycine 750 mg 11/15/24 10:00 11/15/24 10:07 Calcium Carbonate 750 Mg 750 Mg Tab.Chew PO 12/15/24 09:59 750 mg BID MARY BETH Administration Cholecalciferol 2,000 unit 11/14/24 13:00 11/15/24 10:00 Cholecalciferol (Vitamin D3) 1000 Unit Tablet PO 12/14/24 12:59 2,000 unit DAILY MARY BETH Administration Cyanocobalamin 1,000 mcg 11/14/24 13:00 11/15/24 10:02 Cyanocobalamin 500 Mcg Tablet PO 12/14/24 12:59 1,000 mcg DAILY MARY BETH Administration Heparin Sodium (Beef Lung) 5,000 unit 11/14/24 10:00 11/15/24 10:04 Heparin 5000 Units/0.5 Ml 5,000 Unit/0.5 Ml Syr SQ 12/14/24 09:59 5,000 unit BID MARY BETH Administration Ceftriaxone Sodium 1 gm in 100 mls @ 200 mls/hr 11/14/24 18:00 11/14/24 18:20 Rocephin 1 Gm / 100 Ml Nacl IV 12/14/24 09:59 200 mls/hr 1800 MARY BETH Administration Levothyroxine Sodium 37.5 mcg 11/14/24 13:00 11/15/24 09:59 Levothyroxine Sodium 75 Mcg Tablet PO 12/14/24 12:59 37.5 mcg DAILY MARY BETH Administration Lisinopril 10 mg 11/14/24 13:00 11/15/24 10:01 Lisinopril 10 Mg Tablet PO 12/14/24 12:59 10 mg DAILY MARY BETH Administration Lorazepam 2 mg 11/14/24 12:16 Lorazepam 1 Mg Tablet PO 12/14/24 12:15 BID PRN PRN ANXIETY Metoprolol Succinate 100 mg 11/14/24 13:00 11/15/24 10:01 Metoprolol Succinate 50 Mg Tablet.Sa PO 12/14/24 12:59 100 mg DAILY MARY BETH Administration Mupirocin 1 gm 11/15/24 15:00 Mupirocin 22 Gm Tube Ointment TP 12/15/24 14:59 TID MARY BETH Naloxone HCl 0.4 mg 11/15/24 07:37 Naloxone Hcl 0.4 Mg/Ml Ml IV 12/15/24 07:36 PRN PRN RESPIRATORY DEPRESSION Ondansetron HCl 4 mg 11/13/24 20:19 Ondansetron Hcl 4 Mg/2 Ml Vial IV 12/13/24 20:18 Q6H PRN PRN NAUSEA/VOMITING Pantoprazole Sodium 40 mg 11/14/24 13:00 11/15/24 10:02 Protonix (Pantoprazole) 40 Mg Tablet PO 12/14/24 12:59 40 mg DAILY MARY BETH Administration Prednisone 20 mg 11/15/24 11:29 Prednisone 20 Mg Tablet PO 12/15/24 11:28 BID MARY BETH Simvastatin 20 mg 11/14/24 13:00 11/15/24 10:02 Simvastatin 20 Mg Tablet PO 12/14/24 12:59 20 mg DAILY MARY BETH Administration Trazodone HCl 100 mg 11/14/24 22:00 11/14/24 21:00 Trazodone Hcl 50 Mg Tablet PO 12/14/24 21:59 100 mg HS MARY BTEH Administration Discontinued Medications Generic Name Dose Route Start Last Admin Trade Name Freq PRN Reason Stop Dose Admin Hydrocodone Bitart/Acetaminophen Confirm 11/13/24 21:35 Hydrocodone/Apap 5/325 1 Tab Tablet Administered 11/13/24 21:36 Dose 1 tab .ROUTE .STK-MED ONE Hydromorphone HCl 0.5 mg 11/13/24 15:31 11/13/24 15:53 Hydromorphone 1 Mg/1ml Inj IV 11/13/24 15:32 0.5 mg STAT ONE Administration Hydromorphone HCl Confirm 11/13/24 15:52 Hydromorphone 1 Mg/1ml Inj Administered 11/13/24 15:53 Dose 1 mg .ROUTE .STK-MED ONE Hydromorphone HCl 0.5 mg 11/13/24 19:02 11/13/24 19:05 Hydromorphone 1 Mg/1ml Inj IV 11/13/24 19:03 0.5 mg STAT ONE Administration Hydromorphone HCl Confirm 11/13/24 19:04 Hydromorphone 1 Mg/1ml Inj Administered 11/13/24 19:05 Dose 1 mg .ROUTE .STK-MED ONE Ceftriaxone Sodium 1 gm in 100 mls @ 200 mls/hr 11/14/24 10:00 11/13/24 18:35 Rocephin 1 Gm / 100 Ml Nacl IV 12/14/24 09:59 Infused Q24H10 MARY BETH Infusion Ceftriaxone Sodium Confirm 11/13/24 18:04 Rocephin 1 Gm / 100 Ml Nacl Administered 11/13/24 18:05 Dose 1 gm in 100 mls @ ud IV .STK-MED ONE Sodium Chloride 1,000 mls @ 50 mls/hr 11/13/24 20:19 11/14/24 18:22 Sodium Chloride 0.9% 1000 Ml IV 12/13/24 20:18 50 mls/hr .Q20H MARY BETH Administration Mupirocin 1 gm 11/16/24 10:00 Mupirocin 22 Gm Tube Ointment TP 12/16/24 09:59 DAILY MARY BETH Tramadol HCl 50 mg 11/14/24 00:56 11/14/24 08:40 Tramadol Hcl 50 Mg Tablet PO 12/14/24 00:55 50 mg QID PRN PRN Administration PAIN Assessment/Plan (1) UTI (urinary tract infection) Current Visit: Yes Status: Acute Assessment & Plan: UA positive for WBCs, RBCs, leukocyte esterase; dysuria and suprapubic discomfort Continue ceftriaxone as pt is symptomatic Follow up urine culture for sensitivities Monitor for clinical improvement - UC negative- prelim - CBC reviewed Code(s): N39.0 - URINARY TRACT INFECTION, SITE NOT SPECIFIED (2) Sciatica Current Visit: No Status: Acute Assessment & Plan: - Left leg - PT eval - Steroids started - Increased pain with activity. Code(s): M54.30 - SCIATICA, UNSPECIFIED SIDE (3) Fall at home Current Visit: Yes Status: Acute Assessment & Plan: - 2:2 sciatic pain Likely mechanical, precipitated by pain/leg weakness CT head: no acute intracranial abnormality; mild senile changes CT chest: no acute cardiopulmonary process; large hiatal hernia; mild fibro- atelectasis CT cervical spine: no acute fracture; diffuse osteopenia; mild cervical spondylosis with multilevel disc bulges CT abdomen/pelvis: no acute intra-abdominal pathology; diffuse hepatic steatosis; large sliding hiatal hernia stable from prior Implement fall precautions PT consult for mobility and strengthening- patient considering rehab stay pending PT eval Code(s): W19.XXXA - UNSPECIFIED FALL, INITIAL ENCOUNTER; Y92.009 - UNSP PLACE IN UNSP NON-INSTITUT (PRIVATE) RESIDENCE PLACE (4) HLD (hyperlipidemia) Current Visit: Yes Status: Chronic Assessment & Plan: Continue home medications Code(s): E78.5 - HYPERLIPIDEMIA, UNSPECIFIED (5) HTN (hypertension) Current Visit: Yes Status: Chronic Assessment & Plan: Continue home medications Code(s): I10 - ESSENTIAL (PRIMARY) HYPERTENSION (6) Hypothyroid Current Visit: Yes Status: Chronic Assessment & Plan: Continue home medication Code(s): E03.9 - HYPOTHYROIDISM, UNSPECIFIED (7) Acute renal failure superimposed on chronic kidney disease Current Visit: Yes Status: Resolved Assessment & Plan: - resolved - CMP reviewed VTE: Heparin PPI: Protonix Dispo: tomorrow Code status: Full code Plan of care time spent > 40 mins Code(s): N17.9 - ACUTE KIDNEY FAILURE, UNSPECIFIED; N18.9 - CHRONIC KIDNEY DISEASE, UNSPECIFIED
[2024-11-15] MEDS: DELTASONE 20 MG PO SCH (15:12)
[2024-11-15] MEDS: Bactroban OINTMENT TP SCH (15:14)
[2024-11-15] MEDS: Ativan 1 MG PO PRN (19:42)
[2024-11-16 04:52] LABS: Hematocrit 36.2 % (34.1-44.9); Hemoglobin 11.6 g/dL (11.2-15.7); Mean Corpuscular Hemoglobin 31.1 pg (25.6-32.2); Mean Corpuscular Hgb Concent. 32.0 g/dL (32.2-35.5); Platelet Count 138 x10^3/uL (182-369); Red Blood Count 3.73 x10^6/uL (3.93-5.22); White Blood Count 3.7 x10^3/uL (3.98-10.04)
[2024-11-16 05:01] LABS: Calcium 8.8 mg/dL (8.4-10.2); Carbon Dioxide 20.0 mmol/L (22-30); Creatinine 1 1.09 mg/dL (0.52-1.04); EST GLOMERULAR FILTRATION RATE 51.4 ML/MIN; Glucose 174.0 mg/dL (74-106); Potassium 3.9 mmol/L (3.5-5.1)
[2024-11-16 07:40] VITALS: BP 158/68; PULSE 73; RESP 20; TEMP 97.9; O2SAT 95
[2024-11-16] MEDS ORDERED: HUMALOG SQ PRN (07:41)
--- NOTE | 2024-11-16 09:09 | PCM.DS ---
Discharge Summary Date of Admission: 11/13/24 20:15 Date of Discharge: 11/16/24 Admitting Physician: NICOLE BRADLEY MD Primary Care Provider: NATE SCHWARTZ DO Allergies Allergies levofloxacin [From Levaquin] Allergy (Severe, Verified 11/13/24 15:14) Tightness of Throat throat swelling Penicillins Allergy (Intermediate, Verified 11/13/24 15:14) unsure Hospital Summary - Hospital Course Hospital Course: An 79-year-old female with a history of sciatica, stage IIIb chronic kidney disease, hypertension, hyperlipidemia, and hypothyroidism presented to the ED on 11/13 after a fall attributed to worsening left-sided sciatica. She reported her leg gave out while walking, causing her to hit her head, though she denied loss of consciousness or new neurological symptoms. She also reported dysuria and suprapubic discomfort. Imaging showed no acute findings, and labs revealed a transient FIDELINA that has since resolved. She was treated with ceftriaxone for suspected UTI, though her urine culture later returned negative. On 11/15, she remained alert, eating well, and reported improvement in symptoms. Steroids were initiated for sciatica, and gabapentin was avoided due to fall risk. Narcan was added as a precaution given concurrent use of benzodiazepines and narcotics. Her kidney function normalized, IV fluids were discontinued, and elevated blood pressure was managed. She was evaluated by physical therapy for discharge planning. On 11/16, the patient was observed eating breakfast in the chair and reported feeling significantly better, with improved sciatica following steroid initiation. Ceftriaxone and Tums were discontinued, as the urine culture was negative and her calcium levels corrected. She participated in two physical therapy sessions the previous day and expressed a strong desire to return home. After discussion with case management, discharge home was approved. She denies any ongoing concerns and will be discharged with a weaning course of prednisone and outpatient follow-up with her primary care provider. - Vitals & Intake/Output Vital Signs: Vital Signs Temperature 97.9 F 11/16/24 07:39 Pulse Rate 73 11/16/24 07:39 Respiratory Rate 20 11/16/24 07:39 Blood Pressure 158/68 11/16/24 07:39 O2 Sat by Pulse Oximetry 95 11/16/24 07:39 Intake & Output: Intake & Output 11/13/24 11/14/24 11/15/24 11/16/24 11:59 11:59 11:59 11:59 Intake Total 478 5391 1120 Output Total 295 600 50 Balance 183 1861 1070 Weight 71.3 kg - Lab Result Diagrams: 11/16/24 04:34 11/16/24 04:34 Lab Results-Last 24 Hrs: Lab Results-Last 24 Hours 11/16/24 11/16/24 11/16/24 Range/Units 04:34 04:34 04:34 WBC 3.7 L (3.98-10.04) x10^3/uL RBC 3.73 L (3.93-5.22) x10^6/uL Hgb 11.6 (11.2-15.7) g/dL Hct 36.2 (34.1-44.9) % MCV 97.1 H (79.4-94.8) fL MCH 31.1 (25.6-32.2) pg MCHC 32.0 L (32.2-35.5) g/dL RDW 13.1 (11.7-14.4) % Plt Count 138 L (182-369) x10^3/uL MPV 9.7 (9.4-12.3) fL Sodium 132 L (135-145) mmol/L Potassium 3.9 (3.5-5.1) mmol/L Chloride 105 (98-107) mmol/L Carbon Dioxide 20 L (22-30) mmol/L Anion Gap 11.4 (5-15) MEQ/L BUN 15 (7-17) mg/dL Creatinine 1.09 H (0.52-1.04) mg/dL Estimated GFR 51.4 ML/MIN Glucose 174 H (74-106) mg/dL Hemoglobin A1c 5.95 (4.5-6.0) % Calcium 8.8 (8.4-10.2) mg/dL Micro Results-Entire Visit: Microbiology 11/13/24 16:11 Urine Culture - Final Urine, Void MIXED RAFFY; 3 OR MORE TYPES. NO PREDOMINANT ORGANISM. NO FURTHER WORKUP. PLEASE RESUBMIT IF CLINICALLY INDICATED. - Radiology Exams Ordered Rad Exams-Entire Visit: Radiology Procedures Category Date Time Status FOOT (MINIMUM 3 VIEWS) Stat Exams 11/14/24 15:03 Completed - Procedures and Test Procedures and Tests throughout Hospitalization: Therapy Orders & Screens 11/13/24 22:24 PT Eval & Treat (MD Order) ONCE Reason for Eval:: Debility, Sciatica Diagnosis: UTI Discharge Exam General Appearance: no apparent distress, alert Neurologic Exam: alert, oriented x 3, cooperative, normal mood/affect, nml cerebellar function, sensation nml, No motor deficits Eye Exam: PERRL, EOMI, eyes nml inspection Ears, Nose, Throat Exam: normal ENT inspection, pharynx normal, moist mucous membranes Neck Exam: normal inspection, non-tender, supple, full range of motion Respiratory Exam: normal breath sounds, lungs clear, No respiratory distress Cardiovascular Exam: regular rate/rhythm, normal heart sounds Gastrointestinal/Abdomen Exam: soft, No tenderness, No mass Pelvic Exam: deferred Rectal Exam: deferred Back Exam: normal inspection, normal range of motion, No CVA tenderness, No vertebral tenderness Extremity Exam: normal inspection, normal range of motion Skin Exam: normal color, warm, dry, other (Rash on buttock, round, red, dry flaky areas- appear to be staph like lesions.) Final Diagnosis/Problem List - Final Discharge Diagnosis/Problem (1) UTI (urinary tract infection) Current Visit: Yes Status: Acute Code(s): N39.0 - URINARY TRACT INFECTION, SITE NOT SPECIFIED (2) Sciatica Current Visit: No Status: Acute Code(s): M54.30 - SCIATICA, UNSPECIFIED SIDE (3) Fall at home Current Visit: Yes Status: Acute Code(s): W19.XXXA - UNSPECIFIED FALL, INITIAL ENCOUNTER; Y92.009 - UNSP PLACE IN UNSP NON-INSTITUT (PRIVATE) RESIDENCE PLACE (4) HLD (hyperlipidemia) Current Visit: Yes Status: Chronic Code(s): E78.5 - HYPERLIPIDEMIA, UNSPECIFIED (5) HTN (hypertension) Current Visit: Yes Status: Chronic Code(s): I10 - ESSENTIAL (PRIMARY) HYPERTENSION (6) Hypothyroid Current Visit: Yes Status: Chronic Code(s): E03.9 - HYPOTHYROIDISM, UNSPECIFIED (7) Acute renal failure superimposed on chronic kidney disease Current Visit: Yes Status: Resolved Assessment & Plan: (1) UTI (urinary tract infection) Current Visit: Yes Status: Acute Assessment & Plan: UA positive for WBCs, RBCs, leukocyte esterase; dysuria and suprapubic discomfort Continue ceftriaxone as pt is symptomatic Follow up urine culture for sensitivities Monitor for clinical improvement - UC negative- prelim - CBC reviewed 11/16 - UC final results negative - Ceftriaxone stopped - CBC reviewed Code(s): N39.0 - URINARY TRACT INFECTION, SITE NOT SPECIFIED (2) Sciatica Current Visit: No Status: Acute Assessment & Plan: - Left leg - PT eval - Steroids started - Increased pain with activity. 11/16 - pain improved with steroid - Will d/c with weaning dose of steroids Code(s): M54.30 - SCIATICA, UNSPECIFIED SIDE (3) Fall at home Current Visit: Yes Status: Acute Assessment & Plan: - 2:2 sciatic pain Likely mechanical, precipitated by pain/leg weakness CT head: no acute intracranial abnormality; mild senile changes CT chest: no acute cardiopulmonary process; large hiatal hernia; mild fibro- atelectasis CT cervical spine: no acute fracture; diffuse osteopenia; mild cervical spondylosis with multilevel disc bulges CT abdomen/pelvis: no acute intra-abdominal pathology; diffuse hepatic steatosis; large sliding hiatal hernia stable from prior Implement fall precautions PT consult for mobility and strengthening- patient considering rehab stay pending PT eval 11/16 - Pt prefers to d/c home, placement not indicated at this time. - D/C with [facility] Code(s): W19.XXXA - UNSPECIFIED FALL, INITIAL ENCOUNTER; Y92.009 - UNSP PLACE IN UNSP NON-INSTITUT (PRIVATE) RESIDENCE PLACE (4) HLD (hyperlipidemia) Current Visit: Yes Status: Chronic Assessment & Plan: Continue home medications Code(s): E78.5 - HYPERLIPIDEMIA, UNSPECIFIED (5) HTN (hypertension) Current Visit: Yes Status: Chronic Assessment & Plan: Continue home medications Code(s): I10 - ESSENTIAL (PRIMARY) HYPERTENSION (6) Hypothyroid Current Visit: Yes Status: Chronic Assessment & Plan: Continue home medication Code(s): E03.9 - HYPOTHYROIDISM, UNSPECIFIED (7) Acute renal failure superimposed on chronic kidney disease Current Visit: Yes Status: Resolved Assessment & Plan: - resolved - CMP reviewed Code(s): N17.9 - ACUTE KIDNEY FAILURE, UNSPECIFIED; N18.9 - CHRONIC KIDNEY DISEASE, UNSPECIFIED (8) Hypocalcemia Current Visit: Yes Status: Resolved Assessment & Plan: 11/15 - Corrected Ca+ 7.9 - Tums BID started. 11/16 - Corrected and TUMS stopped D/C plan of care time: > 34 minutes New meds- weaning dose of steroids. Code(s): E83.51 - HYPOCALCEMIA (9) Rash Current Visit: Yes Status: Acute Assessment & Plan: - Of buttock - Mupirocin cream- may continue to use tube of medication at home- will send with pt. Code(s): R21 - RASH AND OTHER NONSPECIFIC SKIN ERUPTION - Discharge Discharge Date: 11/16/24 Disposition: Home, Self-Care Condition: Stable Prescriptions: New Mupirocin [Bactroban OINTMENT] 0 gm TP TID Continue Lansoprazole 30 mg PO DAILY #30 capsule. Lisinopril 10 mg [Zestril 10 MG] 10 mg PO DAILY #30 tablet Lorazepam 1 mg [Ativan 1 MG] 2 mg PO BID PRN PRN PRN Reason: Anxiety Levothyroxine Sodium 25 Mcg [Synthroid 25 Mcg] 37.5 mcg PO DAILY Metoprolol Succinate 100 mg PO DAILY Amlodipine Besylate [Norvasc] 2.5 mg PO DAILY Atorvastatin Calcium [Lipitor 20MG Tablet] 20 mg PO DAILY Cholecalciferol (Vitamin D3) [Vitamin D3] 2,000 unit PO DAILY Cyanocobalamin (Vitamin B-12) [Vitamin B-12] 1,000 mcg PO DAILY Trazodone HCl 50 mg [Desyrel 50 mg] 100 mg PO HS Amitriptyline HCl 25 mg [Amitriptyline 25 mg Tablet] 25 mg PO HS Instructions: Sciatica - ED discharge instructions, Impetigo - ED discharge instructions Additional Instructions: [facility] HAS BEEN SET UP FOR YOU. THEY WILL CALL YOU TO ARRANGE A TIME TO COME SEE YOU. IF YOU NEED ANYTHING YOU CAN REACH THEM AT [phone] Follow up with: NATE SCHWARTZ DO [Primary Care Provider, [facility]]
[2024-11-16] MEDS ORDERED: Bactroban OINTMENT TP SCH (10:00)
== END 2024-11-16 10:58 | disposition home health service (06) ==
LOC: ED 15:09 → MED SURG 20:15
PROVIDERS: ADMIT Internal Medicine; ATTEND Internal Medicine
DX: N39.0 Urinary tract infection, site not specified (principal); I12.9 Hypertensive chronic kidney disease with stage 1 through stage 4 chronic kidney disease, or unspecified chronic kidney disease; N18.30 Chronic kidney disease, stage 3 unspecified; N17.9 Acute kidney failure, unspecified; E78.5 Hyperlipidemia, unspecified; E03.9 Hypothyroidism, unspecified; W19.XXXA Unspecified fall, initial encounter; M54.32 Sciatica, left side; E83.51 Hypocalcemia; R21 Rash and other nonspecific skin eruption; Z79.899 Other long term (current) drug therapy